=== PATIENT | male | born 1950 | race Caucasian/White ===

== ENCOUNTER 2016-12-09 19:59 | Inpatient (IN) ==
[2016-12-09 21:17] LABS: Basophils % 0.3 %; Eosinophils # 0.2 K/mcL (0.0-0.6); Eosinophils % 1.3 %; Hematocrit 37.7 % (37.5-50.1); Hemoglobin 12.2 g/dL (12.9-16.9); Immature Granulocytes % 0.9 % (0-4); Lymphocytes # 1.7 K/mcL (0.6-4.6); Lymphocytes % 13.9 %; Mean Corpuscular HGB Conc 32.4 g/dL (31.6-35.5); Mean Corpuscular Hemoglobin 27.3 pg (28.0-33.3); Mean Corpuscular Volume 84.3 fL (83.0-100.0); Mean Platelet Volume 10.1 fL (9.4-12.4); Monocytes # 0.9 K/mcL (0.0-1.3); Monocytes % 7.6 %; Platelet Count 370 K/mcL (140-400); Red Blood Count 4.47 M/mcL (4.19-5.50); Red Cell Distribution Width 13.3 % (11.5-14.5)
--- NOTE | 2016-12-09 21:22 | Emergency Department Note ---
Disposition Clinical Impression: CAP (community acquired pneumonia), Hyperglycemia Disposition: Admitted As Inpatient Condition: Fair SOB HPI - General Chief Complaint: ED Shortness of Breath/Dyspnea Stated Complaint: "i have double pneumonia" Time Seen by Provider: 12/09/16 20:15 Source: patient Limitations: no limitations Nursing Notes Reviewed: Yes Vital Signs Reviewed: Yes - History of Present Illness 66-year-old male with cough and congestion for 1 week, he was sent from his [facility] urgent care for him and say where they said that he had a new pneumonia, patient is a history of insulin dependent diabetes, hypertension, hyperlipidemia, no recent healthcare contacts in last 90 days no hospitalizations. Patient states that he has congestion in his bilateral lungs , reports productive cough. Intermittent fevers and chills. Afebrile today. Previous history of smoking has not smoked for 11 years. Hx of CABG. Pt Subjective Complaint: shortness of breath Onset (ago): day(s) (4) Severity: none Improves with: nothing Worsens with: nothing Known history of: COPD Associated symptoms: Reports: chest pain, fever, cough, sputum production. Denies: wheezing, orthopnea - Related Data Home Medications Medication Instructions Recorded Confirmed Aspirin Enteric Coated [Aspirin EC] 81 mg PO DAILY 12/09/16 12/09/16 Calcium Carbonate/Vitamin D3 2 each PO BID 12/09/16 12/09/16 [Calcium 500 + Vit D 200 Caplet] Carvedilol [Coreg] 6.25 mg PO BIDWM 12/09/16 12/09/16 Ezetimibe [Zetia] 10 mg PO DAILY 12/09/16 12/09/16 Fenofibrate [Lofibra] 160 mg PO DAILY 12/09/16 12/09/16 Furosemide [Lasix] 20 mg PO DAILY 12/09/16 12/09/16 Insulin Glargine,Hum.rec.anlog 50 unit SQ QAM 12/09/16 12/09/16 [Lantus Solostar] Insulin Glargine,Hum.rec.anlog 56 unit SQ HS 12/09/16 12/09/16 [Lantus Solostar] Insulin LISPRO [Humalog Kwikpen 3 - 15 unit SQ HS 12/09/16 12/09/16 U-100] Insulin LISPRO [Humalog Kwikpen 15 - 32 unit SQ TIDAC 12/09/16 12/09/16 U-100] Lisinopril [Zestril] 5 mg PO DAILY 12/09/16 12/09/16 Multivitamin [Multi-Day Vitamins] 1 each PO DAILY 12/09/16 12/09/16 Omeprazole [PriLOSEC] 20 mg PO BIDAC 12/09/16 12/09/16 Simvastatin [Zocor] 40 mg PO HS 12/09/16 12/09/16 SitaGLIPtin [Januvia] 100 mg PO DAILY 12/09/16 12/09/16 Spironolactone [Aldactone] 12.5 mg PO DAILY 12/09/16 12/09/16 Sucralfate [Carafate] 1 gm PO TID 12/09/16 12/09/16 Allergies Allergy/AdvReac Type Severity Reaction Status Date / Time No Known Allergies Allergy Verified 12/09/16 20:05 Review of Systems: A 10 point ROS was obtained from the historian. All other systems were reviewed and negative, except as per below, or as documented in the HPI. Constitutional: Denies: fever, chills, weight changes Eyes: Denies: vision changes, eye pain ENT: Denies: nasal congestion, sore throat CV: Denies: chest pain, palpitations, leg swelling Resp: cough, dyspnea Denies:hemoptysis GI: Denies: abdominal pain, N/V/D/C, hematochezia, melena Denies: dysuria, hematuria MSK: Denies: back pain, neck pain, extremity pain Skin: Denies: new rashes, new lesions Neuro: Denies: HASSAN, weakness, sensory changes, gait difficulty Psych: Denies: anxiety, depression All systems ED: reviewed and negative except as stated. Past Medical History - Past Medical History Attestation: Yes The following information was validated with the patient. Source: patient Medical history: Reports: diabetes, hyperlipidemia, hypertension Psychiatric history: Reports: no psych history - Social History Smoking Status: Never smoker Smokeless Tobacco Status: No Alcohol use: Reports: none Drug use: Reports: none Physical Exam Constitutional: Appears tachypneic and mildly respiratory distress sinus tachycardia. HEENT: NCAT, sclera anicteric, PERRLA bilaterally, normal external ears bilaterally, nasal septum nondeviated, average dentition, MMM Neck: normal inspection, neck is supple, trachea midline, no JVD Resp: Bibasilar rales, scattered wheezes. CV: Status post CABG, midline incision. tachycardic, no m/g/r, Pulses +2 Rad, + 2 DP/PT bilaterally, no pedal edema GI: reducible midline umbilical hernia. normal inspection, Soft, NTND, BS present and normoactive Neuro: A&O3, CN II-XII grossly intact bilaterally, no gross motor or sensory deficits bilaterally MSK: normal inspection, bilateral UE and LE with normal ROM and no deformities Psych: normal mood, normal affect Skin: No rashes, skin warm, dry, intact - General Limitations: no limitations General appearance: alert, in no apparent distress Course Course Narrative: 66-year-old male with pneumonia, on chest x-ray, we lab work blood cultures lactate, reassess. - Reevaluation(s) Reevaluation #1: Given hyperglycemia, betahydroxy butyric acid that was negative, lactate was negative, patient given 2 L of fluids, started on Levaquin IV, given diabetes hyperglycemia, admitted to medicine service. With comorbidities and pneumonia with hypoxia Time: 22:47 Reevaluation #2: Mansoor accepted added 10U of insulin, IV Abx, 2L Normal saline Time: 22:58 Vital Signs Temperature 97.5 F L 12/09/16 20:04 Pulse Rate 97 12/09/16 20:04 Respiratory Rate 20 12/09/16 20:04 Blood Pressure 166/83 12/09/16 20:04 O2 Sat by Pulse Oximetry 96 12/09/16 20:04 Temperature 97.5 F L 12/09/16 20:04 Pulse Rate 97 12/09/16 20:04 Respiratory Rate 21 12/09/16 22:43 Blood Pressure 166/83 12/09/16 20:04 O2 Sat by Pulse Oximetry 94 L 12/09/16 22:43 Oxygen Delivery Oxygen Delivery Room Air Shortness of Breath/Dyspnea - [facility] Narrative Medical decision making narrative: 66-year-old male with history of heart amount admitted to hospitalists in stable condition. - Differential Diagnosis Likely: acute exacerbation of chronic obstructive airways disease, congestive heart failure, pulmonary embolism - Medical Records Medical records reviewed: Yes I reviewed the patient's medical records. - Lab Data Lab results reviewed: Yes I reviewed the patient's lab results. Result diagrams: 12/09/16 21:05 12/09/16 21:05 Lab Results 12/09/16 12/09/16 12/09/16 Range/Units 20:51 21:05 21:05 WBC 11.9 H (4.3-11.1) K/mcL RBC 4.47 (4.19-5.50) M/mcL Hgb 12.2 L (12.9-16.9) g/dL Hct 37.7 (37.5-50.1) % MCV 84.3 (83.0-100.0) fL MCH 27.3 L (28.0-33.3) pg MCHC 32.4 (31.6-35.5) g/dL RDW 13.3 (11.5-14.5) % Plt Count 370 (140-400) K/mcL MPV 10.1 (9.4-12.4) fL Immature Gran % 0.9 (0-4) % Seg Neutrophils % 76.0 % Lymphocytes % 13.9 % Monocytes % 7.6 % Eosinophils % 1.3 % Basophils % 0.3 % Neutrophils # 9.0 H (1.6-8.9) K/mcL Lymphocytes # 1.7 (0.6-4.6) K/mcL Monocytes # 0.9 (0.0-1.3) K/mcL Eosinophils # 0.2 (0.0-0.6) K/mcL Basophils # 0.0 (0.0-0.2) K/mcL VBG pH (7.32-7.42) pH Units VBG pCO2 (41-51) mmHg VBG pO2 (25-40) mmHg VBG HCO3 (21-27) mEq/L Sodium 130 L (136-145) mEq/L Potassium 4.5 (3.5-4.5) mEq/L Chloride 97 L (98-109) mEq/L Carbon Dioxide 23 (19-29) mEq/L BUN 28 H (8-26) mg/dL Creatinine 1.36 H (0.72-1.25) mg/dL Est GFR ( Amer) > 60 (> 60) Est GFR (Non-Af Amer) 52 L (> 60) BUN/Creatinine Ratio 21 (6-26) Glucose 509 H* (70-99) mg/dL POC Glucose 459 H* (58-89) Calculated Osmolality 298 (280-300) Lactic Acid (0.5-2.2) mmol/L Calcium 9.4 (8.6-10.8) mg/dL Troponin I (0-0.03) ng/mL B-Natriuretic Peptide (0-100) pg/mL Beta-Hydroxybutyric Acd (0.02-0.27) mmol/L 12/09/16 12/09/16 12/09/16 Range/Units 21:05 21:05 21:05 WBC (4.3-11.1) K/mcL RBC (4.19-5.50) M/mcL Hgb (12.9-16.9) g/dL Hct (37.5-50.1) % MCV (83.0-100.0) fL MCH (28.0-33.3) pg MCHC (31.6-35.5) g/dL RDW (11.5-14.5) % Plt Count (140-400) K/mcL MPV (9.4-12.4) fL Immature Gran % (0-4) % Seg Neutrophils % % Lymphocytes % % Monocytes % % Eosinophils % % Basophils % % Neutrophils # (1.6-8.9) K/mcL Lymphocytes # (0.6-4.6) K/mcL Monocytes # (0.0-1.3) K/mcL Eosinophils # (0.0-0.6) K/mcL Basophils # (0.0-0.2) K/mcL VBG pH (7.32-7.42) pH Units VBG pCO2 (41-51) mmHg VBG pO2 (25-40) mmHg VBG HCO3 (21-27) mEq/L Sodium (136-145) mEq/L Potassium (3.5-4.5) mEq/L Chloride (98-109) mEq/L Carbon Dioxide (19-29) mEq/L BUN (8-26) mg/dL Creatinine (0.72-1.25) mg/dL Est GFR ( Amer) (> 60) Est GFR (Non-Af Amer) (> 60) BUN/Creatinine Ratio (6-26) Glucose (70-99) mg/dL POC Glucose (58-89) Calculated Osmolality (280-300) Lactic Acid (0.5-2.2) mmol/L Calcium (8.6-10.8) mg/dL Troponin I 0.01 (0-0.03) ng/mL B-Natriuretic Peptide 92 (0-100) pg/mL Beta-Hydroxybutyric Acd 0.15 (0.02-0.27) mmol/L 12/09/16 12/09/16 Range/Units 22:03 22:03 WBC (4.3-11.1) K/mcL RBC (4.19-5.50) M/mcL Hgb (12.9-16.9) g/dL Hct (37.5-50.1) % MCV (83.0-100.0) fL MCH (28.0-33.3) pg MCHC (31.6-35.5) g/dL RDW (11.5-14.5) % Plt Count (140-400) K/mcL MPV (9.4-12.4) fL Immature Gran % (0-4) % Seg Neutrophils % % Lymphocytes % % Monocytes % % Eosinophils % % Basophils % % Neutrophils # (1.6-8.9) K/mcL Lymphocytes # (0.6-4.6) K/mcL Monocytes # (0.0-1.3) K/mcL Eosinophils # (0.0-0.6) K/mcL Basophils # (0.0-0.2) K/mcL VBG pH 7.34 (7.32-7.42) pH Units VBG pCO2 50 (41-51) mmHg VBG pO2 42 H (25-40) mmHg VBG HCO3 27.0 (21-27) mEq/L Sodium (136-145) mEq/L Potassium (3.5-4.5) mEq/L Chloride (98-109) mEq/L Carbon Dioxide (19-29) mEq/L BUN (8-26) mg/dL Creatinine (0.72-1.25) mg/dL Est GFR ( Amer) (> 60) Est GFR (Non-Af Amer) (> 60) BUN/Creatinine Ratio (6-26) Glucose (70-99) mg/dL POC Glucose (58-89) Calculated Osmolality (280-300) Lactic Acid 1.6 (0.5-2.2) mmol/L Calcium (8.6-10.8) mg/dL Troponin I (0-0.03) ng/mL B-Natriuretic Peptide (0-100) pg/mL Beta-Hydroxybutyric Acd (0.02-0.27) mmol/L - Radiology Data Radiology results reviewed: Yes I reviewed the patient's radiology results. - EKG Data EKG attestation: Yes I reviewed and interpreted this EKG. EKG shows normal: Reports: sinus rhythm (97 per minute MI 162 QRS 105 QTC 398.) Attestation Statement - Attestation Attestation: For this encounter, I have reviewed the resident, ETL DATABASE DEVELOPER, or PA documentation, treatment plan, and medical decision making; and I have had face to face time with this patient. C6 show male presents with concerns of pneumonia. Patient had an outpatient chest x-ray performed at the request of his primary care provider. He was informed that he had pneumonia was counseled to come to the emergency department for further evaluation and care. Patient has increased work of breathing over the past 2-3 days and has a O2 saturation of 90% on the monitor on room air while at rest. Patient has a history of multiple pneumonias in the past however has not been hospitalized within the past 3 months. Patient will be admitted to the hospital for further care and evaluation of community- acquired pneumonia. He was given ceftriaxone and azithromycin emergency department for treatment.
[2016-12-09] MEDS ORDERED: 0.9 % Sodium Chloride 1,000 ML IV ONE ×2 (21:24→22:30)
[2016-12-09] MEDS ORDERED: Levofloxacin 750 MG/150 ML 750 MG/150 ML BAG IVPB ONE (21:24)
[2016-12-09 21:32] LABS: BUN/Creatinine Ratio 21 (6-26); Blood Urea Nitrogen 28 mg/dL (8-26); Calcium 9.4 mg/dL (8.6-10.8); Carbon Dioxide 23 mEq/L (19-29); Chloride 97 mEq/L (98-109); Osmolality,Calculated 298 (280-300); Potassium 4.5 mEq/L (3.5-4.5); Sodium 130 mEq/L (136-145); eGFR For African Americans > 60 (> 60); eGFR For Non-African Americans 52 (> 60)
[2016-12-09 21:37] LABS: Glucose 509 mg/dL (70-99)
[2016-12-09 22:18] LABS: VBG PH 7.34 pH Units (7.32-7.42)
[2016-12-09] MEDS ORDERED: methylPREDNISolone 125 MG/2 ML VIAL IVP ONE (22:32)
[2016-12-09] MEDS ORDERED: Ipratropium/Albuterol Neb 3 ML IH ONE (22:32)
[2016-12-09] MEDS ORDERED: Insulin Human Regular 10 UNIT in 0.9 % Sodium Chloride 10 ML IV ONE (22:56)
[2016-12-10] MEDS ORDERED: *HR* Dextrose 50 % in Water (Syg) 50 ML SYRINGE IVP PRN (01:20)
[2016-12-10] MEDS ORDERED: Dextrose Gel 15 GM PO PRN ×2 (01:20)
[2016-12-10] MEDS ORDERED: D5% in Water 1,000 ML IV PRN (01:20)
[2016-12-10] MEDS ORDERED: Acetaminophen 325 MG TABLET PO PRN (01:34)
[2016-12-10] MEDS ORDERED: *HR* HYDROcodone/Acet 5/325 mg TABLET PO PRN (01:34)
[2016-12-10] MEDS ORDERED: Naloxone 0.4 MG/ML INJ IVP PRN (01:34)
[2016-12-10] MEDS ORDERED: MOM Conc 10 ML UD.LIQ PO PRN (01:34)
[2016-12-10] MEDS ORDERED: Ondansetron ODT 4 MG TAB.RAPDIS SL PRN (01:34)
--- NOTE | 2016-12-10 01:45 | Internal Med History&Physical ---
<Maribel Gonzalez - Last Filed: 12/10/16 05:45> Date of Encounter: 12/10/16 Time of Encounter: 01:45 Assessment and Plan (1) CAP (community acquired pneumonia) Current visit: Yes Status: Acute Patient with cough/congestion/fevers and a new infiltrate on x-ray suggestion of pneumonia. Patient has no hospital stays in the last 90 days, as such will treat as community acquired pneumonia with antibiotics and supportive treatment. 1. Levofloxacin PO 750mg daily 2. Flu swab and viral panel 3. Sputum culture 4. Continuous pulse ox and supplemental O2 as needed 5. Prednisone 40mg PO daily x 5 days 6. Duoneb breathing treatments. (2) Diabetes Current visit: Yes Status: Acute Patient with uncontrolled diabetes. Glucose here 509. Carbon dioxide and beta hydroxybutyric acid were normal. Will do patient scheduled basal insulin, plus meal coverage and sliding scale. 1. Levemir 56 units HS and 50 units QAM 2. Meal coverage and sliding scale insulin 3. Monitor glucose 4. Hgb A1c in the morning Qualifiers: Diabetes mellitus type: type 2 Diabetes mellitus complication status: with unspecified complications Diabetes mellitus watermelon inspector insulin use: with watermelon inspector use Qualified Code(s): E11.8 - Type 2 diabetes mellitus with unspecified complications; Z79.4 - detention (current) use of insulin (3) Hyperglycemia Current visit: Yes Status: Acute Patient with blood glucose of 509 on admission. Improved to 344 after 10 units IV insulin. (4) DVT prophylaxis Current visit: Yes Status: Acute Heparin for DVT prophylaxis Internal Medicine - H&P: HPI Chief complaint: Shortness of breath, cough Admitted From: Home Plans for Post Hospital Care: Home History of present illness: Mr. Sanders is a 66 year old male with PMH including diabetes, HTN, HLD and a CABG x3. Patient was sent to the ED from [facility] after a CXR was suggestive of pneumonia. Patient reports that for over a week he has had cough, congestion, runny nose and worsening shortness of breath. Cough is productive of white sputum. The SOB is worse with walking and talking but he says that he can feel it at rest too. He reports associated fatigue, malaise, fever/chills, decreased appetite, nausea/vomiting, and diarrhea. He denies headache, changes in vision, chest pain or pressure, abdominal pain, or change in bowel function. In the ED, patient was afebrile, HR 90s, RR 20-21, with blood pressure 145-166/ 80-100. CXR showed a new lingular infiltrate suggestive of pneumonia. WBC of 11.9. Creatinine 1.36. Patient found to have a glucose of 509. Patient was given 2L of fluids, a dose of IV levauine, duonebs x3, IV solumedrol and 10 units IV insulin. On exam, patient is awake and alert. He was maintaining his oxygenation saturation >95% on room air. Heart was regular rate and rhythm. Lungs had diffuse bilaterally inspiratory and expiratory wheezing. Abdomen soft, nontender. No pedal edema. Past Med Surg Social Fam HX - Past Medical History Medical history: diabetes, hyperlipidemia, hypertension Psychiatric history: no psych history - Social History Smoking Status: Never smoker Smokeless Tobacco Status: No Alcohol use: none Drug use: none - Family History Father Name: ANNE Family Member Ethnicity: Non- Living Status: Age at : 86 Hx Family Cardiac Disorders: Yes Hx Family Respiratory Disorders: Yes Hx Family Cancer: No Hx Family GI Disorders: No Hx Family Genitourinary Disorders: No Hx Family Endocrine Disorder: Yes Hx Family Musculoskeletal Disorders: No Hx Family Neuromuscular Disorders: No Hx Family Neurologic Disorders: No Hx Family HEENT Disorders: No Hx Family Autoimmune Disorders: No Hx Family Reproductive Disorders: No Hx Family Psychosocial Disorders: No Hx Family Medical Disorders: No Internal Medicine - H&P: Meds Aspirin Enteric Coated [Aspirin EC] 81 mg PO DAILY 12/09/16 [History] Calcium Carbonate/Vitamin D3 [Calcium 500 + Vit D 200 Caplet] 2 each PO BID [History] Carvedilol [Coreg] 6.25 mg PO BIDWM 12/09/16 [History] Ezetimibe [Zetia] 10 mg PO DAILY 12/09/16 [History] Fenofibrate [Lofibra] 160 mg PO DAILY 12/09/16 [History] Furosemide [Lasix] 20 mg PO DAILY 12/09/16 [History] Insulin Glargine,Hum.rec.anlog [Lantus Solostar] 50 unit SQ QAM 12/09/16 [ History] Insulin Glargine,Hum.rec.anlog [Lantus Solostar] 56 unit SQ HS 12/09/16 [History ] Insulin LISPRO [Humalog Kwikpen U-100] 3 - 15 unit SQ HS 12/09/16 [History] Insulin LISPRO [Humalog Kwikpen U-100] 15 - 32 unit SQ TIDAC 12/09/16 [History] Lisinopril [Zestril] 5 mg PO DAILY 12/09/16 [History] Multivitamin [Multi-Day Vitamins] 1 each PO DAILY 12/09/16 [History] Omeprazole [PriLOSEC] 20 mg PO BIDAC 12/09/16 [History] Simvastatin [Zocor] 40 mg PO HS 12/09/16 [History] SitaGLIPtin [Januvia] 100 mg PO DAILY 12/09/16 [History] Spironolactone [Aldactone] 12.5 mg PO DAILY 12/09/16 [History] Sucralfate [Carafate] 1 gm PO TID 12/09/16 [History] Allergies No Known Allergies Allergy (Verified 12/09/16 20:05) All Systems PM: A 10-system review of systems was performed and is negative for pertinent findings except as documented above in the HPI. - Constitutional Constitutional: chills, fever(s), lethargy, malaise - EENT Eyes: no blurry vision, no change in vision - Cardiovascular Cardiovascular ROS IM: dyspnea, dyspnea on exertion, no chest pain, no edema, no irregular heart rhythm, no palpitations - Respiratory Respiratory: cough, dyspnea, dyspnea on exertion, wheezing, chest congestion - Gastrointestinal Gastrointestinal: diarrhea, nausea, vomiting, no abdominal pain, no constipation , no hematochezia, no melena - Genitourinary Genitourinary ROS male: no dysuria - Neurological Neurological ROS: no confusion, no headache(s), no loss of vision - Constitutional Vitals: Temp Pulse Resp BP Pulse Ox 98.0 F 80 22 138/76 95 12/10/16 00:06 12/10/16 00:20 12/10/16 00:06 12/10/16 00:06 12/10/16 00:06 General appearance: Present: A&O X 3, pleasant, no acute distress, obese, answers questions appropriately - Head Head exam: Present: atraumatic, normal inspection, normocephalic - Eye Eye exam: Present: EOMI, normal appearance - ENT ENT exam: Present: mucous membranes moist - Respiratory Respiratory exam: Present: wheezes, tachypnea. Absent: respiratory distress - Cardiovascular Cardiovascular exam: Present: RRR - GI/Abdominal GI/Abdominal exam: Present: soft. Absent: guarding, rebound, rigid, tenderness - Extremities Exam Extremities exam: Present: normal inspection. Absent: pedal edema - Neurological Exam Neurological exam: Present: alert, CN II-XII intact, oriented X3 Internal Med - H&P Results - Labs CBC & Chem 7: 12/09/16 21:05 12/09/16 21:05 <Otto Rajput - Last Filed: 12/10/16 06:43> Date of Encounter: 12/10/16 Internal Medicine - H&P: HPI History of present illness: Mr. Sanders is a 66 year old male All Systems PM: A 10-system review of systems was performed and is negative for pertinent findings except as documented above in the HPI. - Constitutional Vitals: Temp Pulse Resp BP Pulse Ox 98.2 F 83 22 138/81 93 L 12/10/16 04:07 12/10/16 04:07 12/10/16 04:07 12/10/16 04:07 12/10/16 04:07 Internal Med - H&P Results - Labs CBC & Chem 7: 12/10/16 06:06 12/09/16 21:05 Labs: Short CBC 12/10/16 Range/Units 06:06 WBC 7.6 (4.3-11.1) K/mcL Hgb 12.0 L (12.9-16.9) g/dL Hct 37.0 L (37.5-50.1) % Plt Count 330 (140-400) K/mcL Neutrophils # 6.7 (1.6-8.9) K/mcL - Attending Attestation I examined this patient and my medical decision-making was reviewed with the Resident Physician, Dr. Gonzalez. I agree with the documented findings, disposition and treatment plan as described except to the extent set forth below. Patient presented to the hospital with generalized weakness shortness of breath and somnolence or lethargy. His symptoms lasted for about the week. He reports cough productive of white sputumassociated chest pain. He has had no nausea vomiting diarrhea and decreased appetite. On exam she is in no distress lung exam reveals expiratory wheezes. There is a reducible periumbilical hernia present. Extremities with 2+ lower extremity pitting edema. Plan: we will treat patient with Levaquin, inhaled bronchodilators and prednisone. Follow-up blood cultures. Check influenza nasal swab.
[2016-12-10] MEDS: Ipratropium/Albuterol Neb 3 ML IH SCH ×6 (03:31→23:36)
[2016-12-10] MEDS ORDERED: Insulin LISPRO 300 UNITS/3 ML VIAL SQ ONE (04:09)
[2016-12-10] MEDS ORDERED: Insulin LISPRO 300 UNITS/3 ML VIAL SQ STA (04:29)
[2016-12-10 06:23] LABS: Basophils % 0.3 %; Immature Granulocytes % 1.1 % (0-4); Lymphocytes # 0.7 K/mcL (0.6-4.6); Lymphocytes % 9.3 %; Mean Corpuscular HGB Conc 32.4 g/dL (31.6-35.5); Mean Corpuscular Volume 83.1 fL (83.0-100.0); Mean Platelet Volume 10.3 fL (9.4-12.4); Monocytes # 0.1 K/mcL (0.0-1.3); Monocytes % 0.7 %; Neutrophils # 6.7 K/mcL (1.6-8.9); Platelet Count 330 K/mcL (140-400); Red Blood Count 4.45 M/mcL (4.19-5.50); Red Cell Distribution Width 13.2 % (11.5-14.5); Segmented Neutrophils % 88.6 %
[2016-12-10 06:34] LABS: Hemoglobin A1C 12.6 %
[2016-12-10 06:35] LABS: Magnesium 1.4 mg/dL (1.6-2.6)
[2016-12-10 06:36] LABS: BUN/Creatinine Ratio 22 (6-26); Blood Urea Nitrogen 26 mg/dL (8-26); Carbon Dioxide 23 mEq/L (19-29); Chloride 100 mEq/L (98-109); Osmolality,Calculated 303 (280-300); Potassium 4.7 mEq/L (3.5-4.5); Sodium 133 mEq/L (136-145); eGFR For African Americans > 60 (> 60); eGFR For Non-African Americans > 60 (> 60)
[2016-12-10 06:41] LABS: Glucose 507 mg/dL (70-99)
[2016-12-10] MEDS: Furosemide 20 MG TABLET PO SCH (08:39)
[2016-12-10] MEDS: Spironolactone 25 MG TABLET PO SCH (08:39)
[2016-12-10] MEDS: Sucralfate 1 GM TABLET PO SCH ×3 (08:40→22:09)
[2016-12-10] MEDS: levoFLOXacin 500 MG TABLET PO SCH (08:40)
[2016-12-10] MEDS: Fenofibrate 54 MG TABLET PO SCH (08:40)
[2016-12-10] MEDS: Aspirin Enteric Coated 81 MG Tablet PO SCH (08:40)
[2016-12-10] MEDS: Insulin LISPRO 300 UNITS/3 ML VIAL SQ SCH ×6 (08:41→17:01)
[2016-12-10] MEDS: Insulin DETEMIR 100 UNIT/ML X5UNITS SQ SCH ×2 (08:41→22:08)
[2016-12-10] MEDS: *HR* Heparin 5,000 UNIT/ML VIAL SQ SCH ×2 (08:41→18:56)
[2016-12-10] MEDS: 0.9 % Sodium Chloride 1,000 ML IVC SCH ×2 (08:45→18:56)
[2016-12-10] MEDS: (Ezetimibe [Zetia] 10 MG) PO SCH (08:58)
[2016-12-10] MEDS ORDERED: predniSONE 20 MG TABLET PO SCH (09:00)
--- NOTE | 2016-12-10 13:16 | Internal Med Progress Note ---
Date of Encounter: 12/10/16 Time of Encounter: 10:00 - Assessment and plan (1) CAP (community acquired pneumonia) Current Visit: Yes Status: Acute Assessment and plan: Will continue Levaquin treatment. Closely monitor patient. Patient still has desaturation, continue oxygen therapy (2) DVT prophylaxis Current Visit: Yes Status: Acute Assessment and plan: Heparin subcutaneously (3) Diabetes Current Visit: Yes Status: Acute Assessment and plan: Continue basal, prandial and sliding scale insulin. Glucose level is still high , highly suspect caused by steroid. Since the patient has no wheezing, no history of COPD, with DC steroid. Qualifiers: Diabetes mellitus type: type 2 Diabetes mellitus complication status: with unspecified complications Diabetes mellitus terminal operations manager insulin use: with terminal operations manager use Qualified Code(s): E11.8 - Type 2 diabetes mellitus with unspecified complications; Z79.4 - FPC (current) use of insulin (4) Hyperglycemia Current Visit: Yes Status: Acute Assessment and plan: Will continue insulin treatment and DC steroid. We will give patient IV fluid to avoid dehydration. (5) Hypertension Current Visit: Yes Status: Acute Assessment and plan: Stable, continue home medications Qualifiers: Hypertension type: essential hypertension Qualified Code(s): I10 - Essential (primary) hypertension - Time Spent With Patient 25 - 35 minutes - Subjective Interval history: Patient is a 66-year-old male admitted for shortness of breath and cough. He was diagnosed as pneumonia. Past medical history is significant for diabetes, hypertension, hyperlipidemia. Patient was seen and examined. He is awake alert, oriented 3. Complaint mild cough without sputum. Feels the shortness of breath is much better. no chest pain. In no acute respiratory distress. Vital signs stable, no fever. Will continue antibiotic treatment and closely monitor patient. Patient has uncontrolled diabetes, will adjust the insulin dose. - Constitutional Vitals: Temp Pulse Resp BP Pulse Ox 97.4 F L 70 18 119/74 95 12/10/16 10:40 12/10/16 12:10 12/10/16 11:02 12/10/16 10:40 12/10/16 11:55 General appearance: Present: A&O X 3, pleasant, no acute distress, obese, answers questions appropriately - Head Head exam: Present: atraumatic, normocephalic - Eye Eye exam: Present: PERRL, conjuntiva pink, sclera anicteric Pupils: Present: PERRL - Neck Neck exam general surgery: Present: supple, trachea midline. Absent: lymphadenopathy - Respiratory Respiratory exam: Present: CTAB, rhonchi (Scattered rhonchi bilaterally). Absent: accessory muscle use, rales, wheezes - Cardiovascular Cardiovascular exam: Present: RRR, +S1, +S2. Absent: diastolic murmur, gallop, rubs, systolic murmur - GI/Abdominal GI/Abdominal exam: Present: normal bowel sounds, soft, no peritoneal signs. Absent: distended, tenderness - Extremities Exam Extremities exam: Present: warm, radial pulses palpable and symetrical. Absent : calf tenderness, cyanotic, pedal edema - Neurological Exam Neurological exam: Present: CN II-XII intact, oriented X3, no focal deficits. Absent: pronater drift, facial droop, speech deficit - Skin Skin exam: Present: dry, intact Internal Medicine: Result - Labs CBC & Chem 7: 12/10/16 06:06 12/10/16 06:06 Labs: Short CBC 12/10/16 Range/Units 06:06 WBC 7.6 (4.3-11.1) K/mcL Hgb 12.0 L (12.9-16.9) g/dL Hct 37.0 L (37.5-50.1) % Plt Count 330 (140-400) K/mcL Neutrophils # 6.7 (1.6-8.9) K/mcL BMP 12/10/16 06:06 Sodium 133 L Potassium 4.7 H Chloride 100 Carbon Dioxide 23 BUN 26 Creatinine 1.19 Glucose 507 H* Calcium 9.0 Consult Discharge Plan - Plan Referrals: Shay britt MD [Primary Care Provider] -
[2016-12-10 14:39] LABS: Adenovirus Not Detected (Not Detect); Bordetella Pertussis Not Detected (Not Detect); Chlamydophila pneumoniae Not Detected (Not Detect); Coronavirus 229E ***DETECTED*** (Not Detect); Coronavirus HKU1 Not Detected (Not Detect); Coronavirus NL63 Not Detected (Not Detect); Coronavirus OC43 Not Detected (Not Detect); Human Metapneumovirus Not Detected (Not Detect); Human Rhinovirus/Enterovirus Not Detected (Not Detect); Influenza A Subtype 2009 H1 Not Detected (Not Detect); Influenza A Untypeable Not Detected (Not Detect); Influenza B Not Detected (Not Detect); Mycoplasma pneumoniae Not Detected (Not Detect); Parainfluenza Virus 1 Not Detected (Not Detect); Parainfluenza Virus 2 Not Detected (Not Detect); Parainfluenza Virus 3 Not Detected (Not Detect); Parainfluenza Virus 4 Not Detected (Not Detect); Respiratory Syncytial Virus Not Detected (Not Detect)
[2016-12-11] MEDS: Ipratropium/Albuterol Neb 3 ML IH SCH ×7 (03:38→23:57)
[2016-12-11 05:04] LABS: Hemoglobin A1C 12.4 %
[2016-12-11] MEDS: 0.9 % Sodium Chloride 1,000 ML IVC SCH (05:04)
[2016-12-11] MEDS: *HR* Heparin 5,000 UNIT/ML VIAL SQ SCH ×2 (05:06→17:38)
[2016-12-11 05:10] LABS: Basophils % 0.2 %; Hematocrit 35.9 % (37.5-50.1); Hemoglobin 11.5 g/dL (12.9-16.9); Immature Granulocytes % 0.9 % (0-4); Lymphocytes # 1.8 K/mcL (0.6-4.6); Lymphocytes % 14.2 %; Mean Corpuscular Hemoglobin 27.3 pg (28.0-33.3); Mean Corpuscular Volume 85.1 fL (83.0-100.0); Mean Platelet Volume 10.4 fL (9.4-12.4); Monocytes # 0.6 K/mcL (0.0-1.3); Monocytes % 4.3 %; Neutrophils # 10.2 K/mcL (1.6-8.9); Platelet Count 365 K/mcL (140-400); Red Blood Count 4.22 M/mcL (4.19-5.50); Red Cell Distribution Width 13.2 % (11.5-14.5); Segmented Neutrophils % 80.4 %
[2016-12-11 05:13] LABS: BUN/Creatinine Ratio 25 (6-26); Blood Urea Nitrogen 27 mg/dL (8-26); Carbon Dioxide 23 mEq/L (19-29); Chloride 104 mEq/L (98-109); Glucose 328 mg/dL (70-99); Osmolality,Calculated 298 (280-300); Sodium 135 mEq/L (136-145); eGFR For African Americans > 60 (> 60); eGFR For Non-African Americans > 60 (> 60)
[2016-12-11] MEDS: Spironolactone 25 MG TABLET PO SCH (08:46)
[2016-12-11] MEDS: Sucralfate 1 GM TABLET PO SCH ×3 (08:46→20:42)
[2016-12-11] MEDS: Aspirin Enteric Coated 81 MG Tablet PO SCH (08:46)
[2016-12-11] MEDS: levoFLOXacin 500 MG TABLET PO SCH (08:46)
[2016-12-11] MEDS: Furosemide 20 MG TABLET PO SCH (08:46)
[2016-12-11] MEDS: Insulin LISPRO 300 UNITS/3 ML VIAL SQ SCH ×6 (08:47→19:54)
[2016-12-11] MEDS: Fenofibrate 54 MG TABLET PO SCH (08:47)
[2016-12-11] MEDS: (Ezetimibe [Zetia] 10 MG) PO SCH (08:48)
[2016-12-11] MEDS: Insulin DETEMIR 100 UNIT/ML X5UNITS SQ SCH ×2 (12:08→21:44)
--- NOTE | 2016-12-11 14:08 | Internal Med Progress Note ---
Date of Encounter: 12/11/16 Time of Encounter: 09:00 - Assessment and plan (1) CAP (community acquired pneumonia) Current Visit: Yes Status: Acute Assessment and plan: Will continue Levaquin treatment. Closely monitor patient. Oxygen saturation level improved. (2) DVT prophylaxis Current Visit: Yes Status: Acute Assessment and plan: Heparin subcutaneously (3) Diabetes Current Visit: Yes Status: Acute Assessment and plan: Continue basal, prandial and sliding scale insulin. Glucose level is still high , highly suspect caused by steroid. Since the patient has no wheezing, no history of COPD, with DC steroid. We will also increase the insulin dose. Closely monitor patient. 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 Adjust insulin dose. Improved with the glucose level (5) Hypertension Current Visit: Yes Status: Acute Assessment and plan: Stable, continue home medications Qualifiers: Hypertension type: essential hypertension Qualified Code(s): I10 - Essential (primary) hypertension - Time Spent With Patient 25 - 35 minutes - Subjective Interval history: Patient is a 66-year-old male admitted for shortness of breath and cough. He was diagnosed as pneumonia. Past medical history is significant for diabetes, hypertension, hyperlipidemia. Patient was seen and examined. He is awake alert, oriented 3. Improved with the shortness of breath and a cough. no chest pain. In no acute respiratory distress. Vital signs stable, no fever. Will continue antibiotic treatment and closely monitor patient. Patient has uncontrolled diabetes, will adjust the insulin dose. - Constitutional Vitals: Temp Pulse Resp BP Pulse Ox 97.6 F 64 18 133/74 95 12/11/16 11:55 12/11/16 12:15 12/11/16 11:55 12/11/16 11:55 12/11/16 11:55 General appearance: Present: A&O X 3, pleasant, no acute distress, obese, answers questions appropriately - Head Head exam: Present: atraumatic, normocephalic - Eye Eye exam: Present: PERRL, conjuntiva pink, sclera anicteric Pupils: Present: PERRL - Neck Neck exam general surgery: Present: supple, trachea midline. Absent: lymphadenopathy - Respiratory Respiratory exam: Present: CTAB, rhonchi (Scattered rhonchus bilaterally). Absent: accessory muscle use, rales, wheezes - Cardiovascular Cardiovascular exam: Present: RRR, +S1, +S2. Absent: diastolic murmur, gallop, rubs, systolic murmur - GI/Abdominal GI/Abdominal exam: Present: normal bowel sounds, soft, no peritoneal signs. Absent: distended, tenderness - Extremities Exam Extremities exam: Present: warm, radial pulses palpable and symetrical. Absent : calf tenderness, cyanotic, pedal edema - Neurological Exam Neurological exam: Present: CN II-XII intact, oriented X3, no focal deficits. Absent: pronater drift, facial droop, speech deficit - Skin Skin exam: Present: dry, intact Internal Medicine: Result - Labs CBC & Chem 7: 12/11/16 04:13 12/11/16 04:13 Labs: Short CBC 12/11/16 Range/Units 04:13 WBC 12.7 H D (4.3-11.1) K/mcL Hgb 11.5 L (12.9-16.9) g/dL Hct 35.9 L (37.5-50.1) % Plt Count 365 (140-400) K/mcL Neutrophils # 10.2 H (1.6-8.9) K/mcL BMP 12/11/16 04:13 Sodium 135 L Potassium 4.0 Chloride 104 Carbon Dioxide 23 BUN 27 H Creatinine 1.10 Glucose 328 H Calcium 8.0 L Consult Discharge Plan - Plan Referrals: lorenza,Shay Costa MD [Primary Care Provider] -
[2016-12-11] MEDS ORDERED: Insulin LISPRO 300 UNITS/3 ML VIAL SQ SCH (21:00)
[2016-12-12] MEDS: Ipratropium/Albuterol Neb 3 ML IH SCH ×3 (04:00→11:13)
[2016-12-12 05:13] LABS: Basophils % 0.4 %; Eosinophils # 0.1 K/mcL (0.0-0.6); Eosinophils % 0.7 %; Hematocrit 38.3 % (37.5-50.1); Hemoglobin 12.3 g/dL (12.9-16.9); Immature Granulocytes % 1.4 % (0-4); Lymphocytes # 2.5 K/mcL (0.6-4.6); Mean Corpuscular HGB Conc 32.1 g/dL (31.6-35.5); Mean Corpuscular Hemoglobin 27.2 pg (28.0-33.3); Mean Corpuscular Volume 84.5 fL (83.0-100.0); Mean Platelet Volume 10.1 fL (9.4-12.4); Monocytes # 0.7 K/mcL (0.0-1.3); Monocytes % 6.7 %; Platelet Count 341 K/mcL (140-400); Red Blood Count 4.53 M/mcL (4.19-5.50); Red Cell Distribution Width 13.5 % (11.5-14.5); Segmented Neutrophils % 66.8 %
[2016-12-12 05:31] LABS: BUN/Creatinine Ratio 28 (6-26); Blood Urea Nitrogen 26 mg/dL (8-26); Calcium 8.5 mg/dL (8.6-10.8); Carbon Dioxide 24 mEq/L (19-29); Chloride 108 mEq/L (98-109); Glucose 73 mg/dL (70-99); Osmolality,Calculated 291 (280-300); Potassium 4.1 mEq/L (3.5-4.5); Sodium 139 mEq/L (136-145); eGFR For African Americans > 60 (> 60); eGFR For Non-African Americans > 60 (> 60)
[2016-12-12] MEDS: *HR* Heparin 5,000 UNIT/ML VIAL SQ SCH (05:51)
[2016-12-12] MEDS ORDERED: Insulin DETEMIR 100 UNIT/ML X5UNITS SQ SCH (07:30)
[2016-12-12] MEDS: Insulin LISPRO 300 UNITS/3 ML VIAL SQ SCH (08:11)
[2016-12-12] MEDS: Fenofibrate 54 MG TABLET PO SCH (08:22)
[2016-12-12] MEDS: Aspirin Enteric Coated 81 MG Tablet PO SCH (08:22)
[2016-12-12] MEDS: levoFLOXacin 500 MG TABLET PO SCH (08:22)
[2016-12-12] MEDS: Sucralfate 1 GM TABLET PO SCH (08:23)
[2016-12-12] MEDS: Spironolactone 25 MG TABLET PO SCH (08:23)
[2016-12-12] MEDS: Furosemide 20 MG TABLET PO SCH (08:23)
[2016-12-12] MEDS: (Ezetimibe [Zetia] 10 MG) PO SCH (08:24)
--- NOTE | 2016-12-12 10:46 | Discharge Summary ---
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 Qualified Code(s): E11.8 - Type 2 diabetes mellitus with unspecified complications; Z79.4 - terminal superintendent (current) use of insulin (4) Hyperglycemia Priority: Primary Status: Acute (5) Hypertension Priority: Secondary Status: Acute Qualifiers: Hypertension type: essential hypertension Qualified Code(s): I10 - Essential (primary) hypertension - Discharge Medications Prescriptions: GuaiFENesin/Dextromethorphan [Robitussin/Dm] 10 ml PO Q6HR 7 Days Home Medications: Aspirin Enteric Coated [Aspirin EC] 81 mg PO DAILY 12/09/16 [History] Calcium Carbonate/Vitamin D3 [Calcium 500-Vit D3 200 Caplet] 2 each PO BID 12/09 [History] Carvedilol [Coreg] 6.25 mg PO BIDWM 12/09/16 [History] Ezetimibe [Zetia] 10 mg PO DAILY 12/09/16 [History] Fenofibrate [Lofibra] 160 mg PO DAILY 12/09/16 [History] Furosemide [Lasix] 20 mg PO DAILY 12/09/16 [History] Insulin Glargine,Hum.rec.anlog [Lantus Solostar] 50 unit SQ QAM 12/09/16 [ History] Insulin Glargine,Hum.rec.anlog [Lantus Solostar] 56 unit SQ HS 12/09/16 [History ] Insulin LISPRO [Humalog Kwikpen U-100] 3 - 15 unit SQ HS 12/09/16 [History] Insulin LISPRO [Humalog Kwikpen U-100] 15 - 32 unit SQ TIDAC 12/09/16 [History] Lisinopril [Zestril] 5 mg PO DAILY 12/09/16 [History] Multivitamin [Multi-Day Vitamins] 1 each PO DAILY 12/09/16 [History] Omeprazole [PriLOSEC] 20 mg PO BIDAC 12/09/16 [History] Simvastatin [Zocor] 40 mg PO HS 12/09/16 [History] SitaGLIPtin [Januvia] 100 mg PO DAILY 12/09/16 [History] Spironolactone [Aldactone] 12.5 mg PO DAILY 12/09/16 [History] Sucralfate [Carafate] 1 gm PO TID 12/09/16 [History] GuaiFENesin/Dextromethorphan [Robitussin/Dm] 10 ml PO Q6HR 7 Days 12/12/16 [Rx] Levofloxacin [Levaquin] 750 mg PO DAILY #7 tablet 12/12/16 [Rx] Allergies/Adverse Reactions: Allergies No Known Allergies Allergy (Verified 12/09/16 20:05) Date of admission: 12/10/16 03:54 Primary care physician: Shay Goetz MD Discharging clinician: Shea Watters Anticipated date of discharge: 12/12/16 - Patient Status Disposition: Home, Self-Care Condition: Good Functional capacity at discharge: independent ambulation Overall status at discharge: patient is progressing back to baseline - Discharge Instructions Follow Up With: Shay Goetz MD [Primary Care Provider] - - Diet and Activity Activity: increase activity as tolerated Diet: diabetic diet Interval History: Mr. Sanders is a 66 year old male with PMH including diabetes, HTN, HLD and a CABG x3. Patient was sent to the ED from [facility] after a CXR was suggestive of pneumonia. Patient reports that for over a week he has had cough, congestion, runny nose and worsening shortness of breath. Cough is productive of white sputum. The SOB is worse with walking and talking but he says that he can feel it at rest too. He reports associated fatigue, malaise, fever/chills, decreased appetite, nausea/vomiting, and diarrhea. He denies headache, changes in vision, chest pain or pressure, abdominal pain, or change in bowel function. In the ED, patient was afebrile, HR 90s, RR 20-21, with blood pressure 145-166/ 80-100. CXR showed a new lingular infiltrate suggestive of pneumonia. WBC of 11.9. Creatinine 1.36. Patient found to have a glucose of 509. Patient was given 2L of fluids, a dose of IV levauine, duonebs x3, IV solumedrol and 10 units IV insulin. Hospital course: Mr. Sanders is a 66 year old male admitted for community acquired pneumonia. He was placed on Levaquin treatment and supportive treatment. He also has uncontrolled diabetes, which was treated with insulin. After treatment his condition has improved. Patient has no fever, WBC get down, in no acute respiratory distress. Patient was discharged home with by mouth Levaquin. His blood sugar level is also well controlled after treatment. I saw and examined the patient today. He is a awake alert, oriented 3. In no acute respiratory Distress. Mild cough, nonproductive. No fever. Vital signs stable, oxygen saturation 94% in room air. Lungs are clear, very few rhonchi on the right lung base. No wheezing. Will discharge patient home today with by mouth antibiotic. Follow-up with PCP as outpatient. will give Patient 7 day work excuse. - Time Spent with Patient Total time spent providing and/or coordinating discharge services: 40 min Greater than 30 minutes - Constitutional Vitals: Temp Pulse Resp BP Pulse Ox 98 F 71 18 159/74 92 L 12/12/16 08:18 12/12/16 08:18 12/12/16 08:18 12/12/16 08:18 12/12/16 08:31 General appearance: Present: A&O X 3, pleasant, no acute distress, obese, answers questions appropriately - Head Head exam: Present: atraumatic, normocephalic - Eye Eye exam: Present: PERRL, conjuntiva pink, sclera anicteric Pupils: Present: PERRL - Neck Neck exam general surgery: Present: supple, trachea midline. Absent: lymphadenopathy - Respiratory Respiratory exam: Present: CTAB, rhonchi (Few rhonchi on the right lung base). Absent: accessory muscle use, rales, wheezes - Cardiovascular Cardiovascular exam: Present: RRR, +S1, +S2. Absent: diastolic murmur, gallop, rubs, systolic murmur - GI/Abdominal GI/Abdominal exam: Present: normal bowel sounds, soft, no peritoneal signs. Absent: distended, tenderness - Extremities Exam Extremities exam: Present: warm, radial pulses palpable and symetrical. Absent : calf tenderness, cyanotic, pedal edema - Neurological Exam Neurological exam: Present: CN II-XII intact, oriented X3, no focal deficits. Absent: pronater drift, facial droop, speech deficit - Skin Skin exam: Present: dry, intact
[2016-12-12 11:13] VITALS: BP 172/76
--- NOTE | 2016-12-12 15:37 | Electrocardiograph Report ---
[address] [address] Test Date: 2016-12-09 Pat Name: Faraz Sanders Department: 102 Room: 2A11 Gender: M [employer] Rol[employer]ter: : 1950 Requested By: Ridge Da Silva Order Number: [id number] Reading MD: Micah Bowman MD Measurements Intervals [place] Rate: 97 P: -45 VA: 162 QRS: 43 QRSD: 105 T: 31 QT: 344 QTc: 398 Interpretive Statements POSSIBLE ECTOPIC ATRIAL RHYTHM INFERIOR MYOCARDIAL INFARCTION, PROBABLY OLD Electronically Signed On 12-12-2016 15:35:12 EST by Micah Bowman MD
== END 2016-12-12 11:45 | disposition home or self-care (01) | DRG 190 ==
LOC: 2NNU 19:59 → EMEROO 19:59 → 2NNU 23:47 → 2ANU 12-11 15:44
PROVIDERS: ADMIT Internal Medicine; ATTEND Internal Medicine

== ENCOUNTER 2020-11-19 16:12 | Inpatient (IN) ==
[2020-11-19 18:02] LABS: Basophils % 0.3 %; Eosinophils # 0.1 K/mcL (0.0-0.6); Eosinophils % 1.2 %; Hematocrit 39.5 % (37.5-50.1); Hemoglobin 12.2 g/dL (12.9-16.9); Immature Granulocytes % 0.7 % (0-4); Lymphocytes # 2.2 K/mcL (0.6-4.6); Lymphocytes % 24.5 %; Mean Corpuscular HGB Conc 30.9 g/dL (31.6-35.5); Mean Corpuscular Hemoglobin 27.1 pg (28.0-33.3); Mean Corpuscular Volume 87.6 fL (83.0-100.0); Mean Platelet Volume 10.9 fL (9.4-12.4); Monocytes # 0.5 K/mcL (0.0-1.3); Monocytes % 5.9 %; Neutrophils # 6.1 K/mcL (1.6-8.9); Platelet Count 243 K/mcL (140-400); Red Blood Count 4.51 M/mcL (4.19-5.50); Red Cell Distribution Width 14.7 % (11.5-14.5); Segmented Neutrophils % 67.4 %; White Blood Count 9.1 K/mcL (4.3-11.1)
[2020-11-19 18:26] LABS: Alanine Aminotransferase 8 Units/L (7-52); Albumin 3.5 g/dL (3.5-5.7); Alkaline Phosphatase 81 Units/L (34-104); Aspartate Amino Transferase 14 Units/L (13-39); BUN/Creatinine Ratio 23 (6-26); Bilirubin,Total 0.5 mg/dL (0.3-1.0); Blood Urea Nitrogen 23 mg/dL (8-23); Calcium 9.6 mg/dL (8.6-10.3); Carbon Dioxide 25 mEq/L (23-29); Chloride 103 mEq/L (98-107); Globulin 3.4 g/dL (2.4-3.5); Glucose 256 mg/dL (70-105); Osmolality,Calculated 294 (280-300); Potassium 4.2 mEq/L (3.5-5.1); Sodium 136 mEq/L (136-145); Total Protein 6.9 g/dL (6.4-8.9); Troponin I 0.06 ng/mL (< 0.04); eGFR For African Americans > 60 (> 60); eGFR For Non-African Americans > 60 (> 60)
[2020-11-19] MEDS ORDERED: Furosemide 20 MG/2 ML VIAL IVP ONE ×2 (18:32→20:26)
[2020-11-19] MEDS ORDERED: Naloxone 0.4 MG/ML INJ IVP PRN (20:17)
[2020-11-19] MEDS ORDERED: Acetaminophen 325 MG TABLET PO PRN (20:17)
[2020-11-19] MEDS ORDERED: D5% in Water 1,000 ML IVC PRN (20:19)
[2020-11-19] MEDS ORDERED: Dextrose Gel 15 GM/37.5 ML TUBE PO PRN ×2 (20:19)
[2020-11-19] MEDS ORDERED: *HR* Dextrose 50 % in Water (Vial) 50 ML VIAL IVP PRN (20:19)
[2020-11-19] MEDS ORDERED: Ipratropium/Albuterol Neb 3 ML IH PRN (20:24)
[2020-11-19] MEDS ORDERED: Ondansetron ODT 4 MG TAB.RAPDIS SL PRN (21:24)
[2020-11-19] MEDS ORDERED: Perflutren Lipid Microsphere 1.3 ML in 0.9 % Sodium Chloride 8.7 ML IVP PRN (21:26)
[2020-11-19] MEDS ORDERED: *HR* Metoprolol 5 MG/5 ML VIAL IVP ONE (23:17)
[2020-11-19] MEDS: Insulin LISPRO 300 UNITS/3 ML VIAL SUBQ SCH (23:25)
[2020-11-19] MEDS: Insulin DETEMIR 100 UNIT/ML X5UNITS SUBQ SCH (23:26)
[2020-11-19] MEDS: Furosemide 20 MG/2 ML VIAL IVP SCH (23:27)
[2020-11-20 05:21] LABS: Hematocrit 38.4 % (37.5-50.1); Hemoglobin 12.2 g/dL (12.9-16.9); Mean Corpuscular HGB Conc 31.8 g/dL (31.6-35.5); Mean Corpuscular Hemoglobin 26.9 pg (28.0-33.3); Mean Corpuscular Volume 84.8 fL (83.0-100.0); Mean Platelet Volume 10.2 fL (9.4-12.4); Platelet Count 252 K/mcL (140-400); Red Blood Count 4.53 M/mcL (4.19-5.50); Red Cell Distribution Width 14.7 % (11.5-14.5); White Blood Count 9.7 K/mcL (4.3-11.1)
[2020-11-20 05:42] LABS: BUN/Creatinine Ratio 18 (6-26); Blood Urea Nitrogen 21 mg/dL (8-23); Calcium 9.3 mg/dL (8.6-10.3); Carbon Dioxide 30 mEq/L (23-29); Chloride 100 mEq/L (98-107); Glucose 261 mg/dL (70-105); Magnesium 1.3 mg/dL (1.6-2.6); Osmolality,Calculated 296 (280-300); Phosphorous 2.9 mg/dL (2.7-4.5); Potassium 3.8 mEq/L (3.5-5.1); Sodium 137 mEq/L (136-145); eGFR For African Americans > 60 (> 60); eGFR For Non-African Americans > 60 (> 60)
[2020-11-20] MEDS: *HR* Heparin 5,000 UNIT/ML VIAL SQ SCH ×2 (06:55→16:25)
[2020-11-20] MEDS ORDERED: Albuterol 2.5 MG/3 ML NEBULIZER IH PRN (07:00)
[2020-11-20] MEDS: Furosemide 20 MG/2 ML VIAL IVP SCH ×2 (08:30→20:35)
[2020-11-20] MEDS: lisinopriL 5 MG TABLET PO SCH (08:30)
[2020-11-20] MEDS: Sucralfate 1 GM TABLET PO SCH ×3 (08:30→20:32)
[2020-11-20] MEDS: carvediloL 6.25 MG TABLET PO SCH ×2 (08:30→16:25)
[2020-11-20] MEDS: Aspirin Enteric Coated 81 MG Tablet PO SCH (08:30)
[2020-11-20] MEDS: Spironolactone 25 MG TABLET PO SCH (08:30)
[2020-11-20] MEDS: Insulin LISPRO 300 UNITS/3 ML VIAL SUBQ SCH ×4 (08:31→20:33)
[2020-11-20] MEDS: *HR* Acetylcysteine 20% 600 MG/3 ML ORAL SYRINGE PO SCH (09:27)
[2020-11-20] MEDS: Budesonide/Formoterol 160/4.5 1 PUFF INH IH SCH (10:05)
[2020-11-20] MEDS: Insulin DETEMIR 100 UNIT/ML X5UNITS SUBQ SCH (20:33)
[2020-11-20] MEDS: Cholecalciferol (D-3) 1,000 UNIT (25MCG) TABLET PO SCH (20:33)
[2020-11-21 03:53] LABS: Basophils % 0.4 %; Eosinophils # 0.1 K/mcL (0.0-0.6); Eosinophils % 1.3 %; Hematocrit 38.3 % (37.5-50.1); Hemoglobin 12.2 g/dL (12.9-16.9); Immature Granulocytes % 0.4 % (0-4); Lymphocytes % 34.6 %; Mean Corpuscular HGB Conc 31.9 g/dL (31.6-35.5); Mean Corpuscular Hemoglobin 27.5 pg (28.0-33.3); Mean Corpuscular Volume 86.3 fL (83.0-100.0); Mean Platelet Volume 10.4 fL (9.4-12.4); Monocytes # 0.7 K/mcL (0.0-1.3); Monocytes % 8.5 %; Neutrophils # 4.7 K/mcL (1.6-8.9); Platelet Count 238 K/mcL (140-400); Red Blood Count 4.44 M/mcL (4.19-5.50); Red Cell Distribution Width 14.7 % (11.5-14.5); Segmented Neutrophils % 54.8 %; White Blood Count 8.5 K/mcL (4.3-11.1)
[2020-11-21 04:17] LABS: BUN/Creatinine Ratio 20 (6-26); Blood Urea Nitrogen 26 mg/dL (8-23); Calcium 8.9 mg/dL (8.6-10.3); Carbon Dioxide 29 mEq/L (23-29); Chloride 99 mEq/L (98-107); Glucose 274 mg/dL (70-105); Osmolality,Calculated 297 (280-300); Potassium 3.7 mEq/L (3.5-5.1); Sodium 136 mEq/L (136-145); eGFR For African Americans > 60 (> 60); eGFR For Non-African Americans 56 (> 60)
[2020-11-21] MEDS: *HR* Heparin 5,000 UNIT/ML VIAL SQ SCH ×2 (06:45→17:17)
[2020-11-21] MEDS: Budesonide/Formoterol 160/4.5 1 PUFF INH IH SCH (07:52)
[2020-11-21] MEDS: Insulin LISPRO 300 UNITS/3 ML VIAL SUBQ SCH ×4 (08:35→20:48)
[2020-11-21] MEDS: Aspirin Enteric Coated 81 MG Tablet PO SCH (08:35)
[2020-11-21] MEDS: Cholecalciferol (D-3) 1,000 UNIT (25MCG) TABLET PO SCH ×2 (08:35→20:48)
[2020-11-21] MEDS: Sucralfate 1 GM TABLET PO SCH ×3 (08:35→20:48)
[2020-11-21] MEDS: carvediloL 6.25 MG TABLET PO SCH ×2 (08:36→17:17)
[2020-11-21] MEDS: Spironolactone 25 MG TABLET PO SCH (08:36)
[2020-11-21] MEDS: Furosemide 20 MG/2 ML VIAL IVP SCH ×2 (08:36→20:48)
[2020-11-21] MEDS: Multivit/Ca/Min/Fe/FA 1 TAB TABLET PO SCH (08:36)
[2020-11-21] MEDS: lisinopriL 5 MG TABLET PO SCH (08:36)
[2020-11-21] MEDS ORDERED: Furosemide 20 MG/2 ML VIAL IVP ONE (08:53)
[2020-11-21] MEDS: *HR* Acetylcysteine 20% 600 MG/3 ML ORAL SYRINGE PO SCH (09:41)
[2020-11-21] MEDS ORDERED: Insulin DETEMIR 100 UNIT/ML X5UNITS SUBQ SCH (21:00)
[2020-11-22 02:12] LABS: Basophils % 0.4 %; Eosinophils # 0.1 K/mcL (0.0-0.6); Eosinophils % 1.2 %; Hematocrit 39.5 % (37.5-50.1); Hemoglobin 12.5 g/dL (12.9-16.9); Immature Granulocytes % 0.5 % (0-4); Lymphocytes # 3.2 K/mcL (0.6-4.6); Lymphocytes % 33.2 %; Mean Corpuscular HGB Conc 31.6 g/dL (31.6-35.5); Mean Corpuscular Volume 85.3 fL (83.0-100.0); Mean Platelet Volume 10.5 fL (9.4-12.4); Monocytes # 0.7 K/mcL (0.0-1.3); Neutrophils # 5.6 K/mcL (1.6-8.9); Platelet Count 278 K/mcL (140-400); Red Blood Count 4.63 M/mcL (4.19-5.50); Red Cell Distribution Width 14.9 % (11.5-14.5); Segmented Neutrophils % 57.7 %; White Blood Count 9.7 K/mcL (4.3-11.1)
[2020-11-22 02:25] LABS: BUN/Creatinine Ratio 22 (6-26); Blood Urea Nitrogen 28 mg/dL (8-23); Carbon Dioxide 28 mEq/L (23-29); Chloride 98 mEq/L (98-107); Glucose 337 mg/dL (70-105); Osmolality,Calculated 299 (280-300); Potassium 3.9 mEq/L (3.5-5.1); Sodium 135 mEq/L (136-145); eGFR For African Americans > 60 (> 60); eGFR For Non-African Americans 55 (> 60)
[2020-11-22] MEDS: *HR* Heparin 5,000 UNIT/ML VIAL SQ SCH (06:33)
[2020-11-22] MEDS: Budesonide/Formoterol 160/4.5 1 PUFF INH IH SCH (07:33)
[2020-11-22 07:44] VITALS: BP 158/69
[2020-11-22] MEDS: Cholecalciferol (D-3) 1,000 UNIT (25MCG) TABLET PO SCH (08:34)
[2020-11-22] MEDS: Sucralfate 1 GM TABLET PO SCH (08:34)
[2020-11-22] MEDS: Aspirin Enteric Coated 81 MG Tablet PO SCH (08:34)
[2020-11-22] MEDS: carvediloL 6.25 MG TABLET PO SCH (08:34)
[2020-11-22] MEDS: Spironolactone 25 MG TABLET PO SCH (08:34)
[2020-11-22] MEDS: lisinopriL 5 MG TABLET PO SCH (08:35)
[2020-11-22] MEDS: Multivit/Ca/Min/Fe/FA 1 TAB TABLET PO SCH (08:35)
[2020-11-22] MEDS: *HR* Acetylcysteine 20% 600 MG/3 ML ORAL SYRINGE PO SCH (08:35)
[2020-11-22] MEDS: Furosemide 20 MG/2 ML VIAL IVP SCH (08:35)
[2020-11-22] MEDS: Insulin LISPRO 300 UNITS/3 ML VIAL SUBQ SCH ×2 (08:37→13:44)
== END 2020-11-22 13:59 | disposition home or self-care (01) | DRG 292 ==
LOC: 2ANU 16:12 → EMEROOARM 16:12 → 2ANU 20:34
PROVIDERS: ADMIT Student in an Organized Health Care Education/Training Program; ATTEND Student in an Organized Health Care Education/Training Program

== ENCOUNTER 2021-02-15 15:02 | Inpatient (IN) ==
[2021-02-16] MEDS ORDERED: Isovue-370 500 ML BOTTLE IVP ONE ×2 (01:04→01:14)
[2021-02-16] MEDS ORDERED: Ipratropium/Albuterol Neb 3 ML IH ONE (01:05)
[2021-02-16 01:27] LABS: Basophils % 0.4 %; Eosinophils # 0.1 K/mcL (0.0-0.6); Eosinophils % 1.2 %; Hematocrit 43.7 % (37.5-50.1); Hemoglobin 13.4 g/dL (12.9-16.9); Immature Granulocytes % 0.5 % (0-4); Lymphocytes % 18.5 %; Mean Corpuscular HGB Conc 30.7 g/dL (31.6-35.5); Mean Corpuscular Hemoglobin 27.6 pg (28.0-33.3); Mean Corpuscular Volume 89.9 fL (83.0-100.0); Mean Platelet Volume 10.3 fL (9.4-12.4); Monocytes # 0.6 K/mcL (0.0-1.3); Monocytes % 5.7 %; Platelet Count 309 K/mcL (140-400); Red Blood Count 4.86 M/mcL (4.19-5.50); Red Cell Distribution Width 13.6 % (11.5-14.5); Segmented Neutrophils % 73.7 %; White Blood Count 10.9 K/mcL (4.3-11.1)
[2021-02-16 01:35] LABS: VBG HCO3 30 mEq/L (21-27); VBG PCO2 61 mmHg (41-51); VBG PO2 33 mmHg (25-50)
[2021-02-16 01:48] LABS: BUN/Creatinine Ratio 13 (6-26); Blood Urea Nitrogen 15 mg/dL (8-23); Carbon Dioxide 26 mEq/L (23-29); Chloride 104 mEq/L (98-107); Glucose 246 mg/dL (70-105); Osmolality,Calculated 297 (280-300); Potassium 4.2 mEq/L (3.5-5.1); Sodium 139 mEq/L (136-145); eGFR For African Americans > 60 (> 60); eGFR For Non-African Americans > 60 (> 60)
[2021-02-16 01:53] LABS: Troponin I 0.06 ng/mL (< 0.04)
[2021-02-16] MEDS ORDERED: Furosemide 40 MG/4 ML VIAL IVP ONE (02:14)
[2021-02-16] MEDS ORDERED: Piperacillin/Tazobactam 3.375 GM in 0.9 % Sodium Chloride Mini Bag 100 ML IVPB ONE (02:21)
[2021-02-16] MEDS ORDERED: Vancomycin 2,000 MG/520 ML IV.SOLN IVPB ONE (02:21)
[2021-02-16] MEDS ORDERED: Ondansetron 4 MG/2 ML VIAL IVP PRN (04:36)
[2021-02-16] MEDS ORDERED: Naloxone 0.4 MG/ML INJ IVP PRN ×2 (04:36→07:19)
[2021-02-16] MEDS ORDERED: Acetaminophen 325 MG TABLET PO PRN (04:36)
[2021-02-16] MEDS ORDERED: D5% in Water 1,000 ML IVC PRN (04:38)
[2021-02-16] MEDS ORDERED: *HR* Dextrose 50 % in Water (Vial) 50 ML VIAL IVP PRN (04:38)
[2021-02-16] MEDS ORDERED: Dextrose Gel 15 GM/37.5 ML TUBE PO PRN ×2 (04:38)
[2021-02-16] MEDS ORDERED: Vancomycin 1,750 MG in 0.9 % Sodium Chloride 250 ML IVPB SCH (05:00)
[2021-02-16 06:42] LABS: Bilirubin,Urine Negative (Negative); Blood,Urine Negative (Negative); Clarity,Urine Clear (Clear); Color,Urine Colorless (Yellow); Glucose,Urine (UA) Normal (Normal); Ketones,Urine Negative (Negative); Leukocyte Esterase,Urine Negative (Negative); Nitrite,Urine Negative (Negative); Protein,Urine 100 mg/dL (Neg-Trace); RBC,Urine 0-3 per hpf (0-3); Specific Gravity,Urine 1.015 (1.010-1.025); Urobilinogen,Urine Normal (Normal)
[2021-02-16] MEDS ORDERED: Piperacillin/Tazobactam 3.375 GM in 0.9 % Sodium Chloride Mini Bag 100 ML IVPB SCH (08:00)
[2021-02-16] MEDS: Insulin LISPRO 300 UNITS/3 ML VIAL SUBQ SCH ×4 (08:33→20:51)
[2021-02-16] MEDS ORDERED: Furosemide 40 MG/4 ML VIAL IVP SCH (09:00)
[2021-02-16 09:12] LABS: Estimated Average Glucose 258 mg/dl; Hemoglobin A1C 10.6 %
[2021-02-16 11:10] LABS: Troponin I 0.06 ng/mL (< 0.04)
[2021-02-16] MEDS ORDERED: Albuterol 2.5 MG/3 ML NEBULIZER IH PRN (11:23)
[2021-02-16 12:14] LABS: Magnesium 1.6 mg/dL (1.6-2.6)
[2021-02-16] MEDS: Isosorbide MONOnitrate (24 HR) 30 MG TAB.ER.24H PO SCH (12:16)
[2021-02-16] MEDS ORDERED: Vancomycin 1,250 MG/262.5 ML IV.SOLN IVPB SCH (15:00)
[2021-02-16] MEDS: Sucralfate 1 GM TABLET PO SCH ×2 (15:15→20:51)
[2021-02-16] MEDS: Furosemide 40 MG/4 ML VIAL IVP SCH (17:52)
[2021-02-16] MEDS: carvediloL 6.25 MG TABLET PO SCH (17:52)
[2021-02-16] MEDS: Insulin DETEMIR 100 UNIT/ML X5UNITS SUBQ SCH (20:51)
[2021-02-17] MEDS: *HR* Enoxaparin 40 MG/0.4 ML SYRINGE SQ SCH (05:56)
[2021-02-17 06:18] LABS: BUN/Creatinine Ratio 16 (6-26); Blood Urea Nitrogen 21 mg/dL (8-23); Calcium 8.5 mg/dL (8.6-10.3); Carbon Dioxide 30 mEq/L (23-29); Chloride 102 mEq/L (98-107); Glucose 49 mg/dL (70-105); Magnesium 1.6 mg/dL (1.6-2.6); Osmolality,Calculated 288 (280-300); Potassium 3.3 mEq/L (3.5-5.1); Sodium 139 mEq/L (136-145); eGFR For African Americans > 60 (> 60); eGFR For Non-African Americans 54 (> 60)
[2021-02-17 06:19] LABS: INR 1.2; Prothrombin Time 13.5 Seconds (9.4-12.1)
[2021-02-17] MEDS: Budesonide/Formoterol 160/4.5 1 PUFF INH IH SCH ×2 (07:39→20:29)
[2021-02-17] MEDS: lisinopriL 5 MG TABLET PO SCH (07:47)
[2021-02-17] MEDS: Furosemide 40 MG/4 ML VIAL IVP SCH ×2 (07:47→16:49)
[2021-02-17] MEDS: Isosorbide MONOnitrate (24 HR) 30 MG TAB.ER.24H PO SCH (07:48)
[2021-02-17] MEDS: carvediloL 6.25 MG TABLET PO SCH ×2 (07:48→16:49)
[2021-02-17] MEDS: Insulin LISPRO 300 UNITS/3 ML VIAL SUBQ SCH ×4 (07:48→20:41)
[2021-02-17] MEDS: Sucralfate 1 GM TABLET PO SCH ×3 (07:48→20:57)
[2021-02-17] MEDS: Spironolactone 12.5 MG TABLET PO SCH (07:48)
[2021-02-17] MEDS: Aspirin Enteric Coated 81 MG Tablet PO SCH (07:48)
[2021-02-17] MEDS: Insulin DETEMIR 100 UNIT/ML X5UNITS SUBQ SCH (20:57)
[2021-02-18 05:33] LABS: Hematocrit 35.5 % (37.5-50.1); Mean Corpuscular HGB Conc 30.1 g/dL (31.6-35.5); Mean Corpuscular Hemoglobin 27.3 pg (28.0-33.3); Mean Corpuscular Volume 90.6 fL (83.0-100.0); Mean Platelet Volume 10.1 fL (9.4-12.4); Platelet Count 277 K/mcL (140-400); Red Blood Count 3.92 M/mcL (4.19-5.50); Red Cell Distribution Width 13.7 % (11.5-14.5); White Blood Count 8.6 K/mcL (4.3-11.1)
[2021-02-18 05:34] LABS: Hemoglobin 10.7 g/dL (12.9-16.9)
[2021-02-18] MEDS: *HR* Enoxaparin 40 MG/0.4 ML SYRINGE SQ SCH (05:36)
[2021-02-18 05:55] LABS: Calcium 8.2 mg/dL (8.6-10.3); Magnesium 1.7 mg/dL (1.6-2.6); Potassium 3.4 mEq/L (3.5-5.1)
[2021-02-18] MEDS: Insulin LISPRO 300 UNITS/3 ML VIAL SUBQ SCH ×4 (08:27→20:15)
[2021-02-18] MEDS: lisinopriL 5 MG TABLET PO SCH (09:16)
[2021-02-18] MEDS: carvediloL 6.25 MG TABLET PO SCH ×2 (09:16→16:35)
[2021-02-18] MEDS: Spironolactone 12.5 MG TABLET PO SCH (09:16)
[2021-02-18] MEDS: Isosorbide MONOnitrate (24 HR) 30 MG TAB.ER.24H PO SCH (09:16)
[2021-02-18] MEDS: Aspirin Enteric Coated 81 MG Tablet PO SCH (09:16)
[2021-02-18] MEDS: Sucralfate 1 GM TABLET PO SCH ×4 (09:18→20:38)
[2021-02-18] MEDS: Budesonide/Formoterol 160/4.5 1 PUFF INH IH SCH ×2 (10:13→20:14)
[2021-02-18] MEDS: Furosemide 40 MG/4 ML VIAL IVP SCH (11:04)
[2021-02-18 15:35] LABS: Calcium 7.7 mg/dL (8.6-10.3); Potassium 3.8 mEq/L (3.5-5.1)
[2021-02-18] MEDS: Insulin DETEMIR 100 UNIT/ML X5UNITS SUBQ SCH (20:45)
[2021-02-19 03:59] LABS: Hematocrit 34.3 % (37.5-50.1); Hemoglobin 10.6 g/dL (12.9-16.9); Mean Corpuscular HGB Conc 30.9 g/dL (31.6-35.5); Mean Corpuscular Volume 90.5 fL (83.0-100.0); Mean Platelet Volume 10.4 fL (9.4-12.4); Platelet Count 274 K/mcL (140-400); Red Blood Count 3.79 M/mcL (4.19-5.50); Red Cell Distribution Width 13.3 % (11.5-14.5); White Blood Count 8.5 K/mcL (4.3-11.1)
[2021-02-19 04:14] LABS: Magnesium 1.9 mg/dL (1.6-2.6); Potassium 3.8 mEq/L (3.5-5.1)
[2021-02-19] MEDS: *HR* Enoxaparin 40 MG/0.4 ML SYRINGE SQ SCH (05:26)
[2021-02-19] MEDS: Budesonide/Formoterol 160/4.5 1 PUFF INH IH SCH ×2 (07:23→19:40)
[2021-02-19] MEDS: Isosorbide MONOnitrate (24 HR) 30 MG TAB.ER.24H PO SCH (08:17)
[2021-02-19] MEDS: Spironolactone 12.5 MG TABLET PO SCH (08:17)
[2021-02-19] MEDS: carvediloL 6.25 MG TABLET PO SCH ×2 (08:18→14:57)
[2021-02-19] MEDS: Aspirin Enteric Coated 81 MG Tablet PO SCH (08:18)
[2021-02-19] MEDS: Sucralfate 1 GM TABLET PO SCH ×3 (08:19→20:44)
[2021-02-19] MEDS: Insulin LISPRO 300 UNITS/3 ML VIAL SUBQ SCH ×4 (08:19→20:45)
[2021-02-19] MEDS: Furosemide 40 MG TABLET PO SCH ×2 (09:52→14:57)
[2021-02-19] MEDS: Insulin DETEMIR 100 UNIT/ML X5UNITS SUBQ SCH (20:45)
[2021-02-20] MEDS: *HR* Enoxaparin 40 MG/0.4 ML SYRINGE SQ SCH (05:58)
[2021-02-20 07:14] LABS: Calcium 8.4 mg/dL (8.6-10.3); Potassium 4.3 mEq/L (3.5-5.1)
[2021-02-20] MEDS: Budesonide/Formoterol 160/4.5 1 PUFF INH IH SCH (07:33)
[2021-02-20] MEDS: Aspirin Enteric Coated 81 MG Tablet PO SCH (07:56)
[2021-02-20] MEDS: Isosorbide MONOnitrate (24 HR) 30 MG TAB.ER.24H PO SCH (07:57)
[2021-02-20] MEDS: Furosemide 40 MG TABLET PO SCH (07:57)
[2021-02-20] MEDS: Spironolactone 12.5 MG TABLET PO SCH (07:57)
[2021-02-20] MEDS: carvediloL 6.25 MG TABLET PO SCH (07:57)
[2021-02-20] MEDS: Sucralfate 1 GM TABLET PO SCH (07:58)
[2021-02-20] MEDS: Insulin LISPRO 300 UNITS/3 ML VIAL SUBQ SCH ×2 (07:59→12:10)
[2021-02-20] MEDS ORDERED: lisinopriL 5 MG TABLET PO SCH (09:00)
[2021-02-20 10:48] VITALS: BP 92/55
== END 2021-02-20 13:40 | disposition home health service (06) | DRG 291 ==
LOC: EMEROOARM 15:02 → CDU 15:02 → SUATTDRO 02-16 03:37 → CDU 02-16 05:27 → 3BNU 02-18 16:59
PROVIDERS: ADMIT Internal Medicine; ATTEND Internal Medicine

== ENCOUNTER 2021-06-16 12:20 | Inpatient (IN) ==
[2021-06-16 13:11] LABS: Basophils # 0.1 K/mcL (0.0-0.2); Basophils % 0.2 %; Hematocrit 39.8 % (37.5-50.1); Hemoglobin 13.1 g/dL (12.9-16.9); Immature Granulocytes % 0.9 % (0-4); Lymphocytes % 8.8 %; Mean Corpuscular HGB Conc 32.9 g/dL (31.6-35.5); Mean Corpuscular Hemoglobin 27.9 pg (28.0-33.3); Mean Corpuscular Volume 84.7 fL (83.0-100.0); Mean Platelet Volume 10.7 fL (9.4-12.4); Monocytes # 2.2 K/mcL (0.0-1.3); Monocytes % 9.4 %; Neutrophils # 18.5 K/mcL (1.6-8.9); Platelet Count 271 K/mcL (140-400); Red Cell Distribution Width 14.7 % (11.5-14.5); Segmented Neutrophils % 80.7 %
[2021-06-16 13:30] LABS: VBG HCO3 22 mEq/L (21-27); VBG PCO2 27 mmHg (41-51); VBG PH 7.51 pH Units (7.32-7.42); VBG PO2 169 mmHg (25-50)
[2021-06-16 13:30] LABS: Albumin 2.8 g/dL (3.5-5.7); Albumin/Globulin Ratio 0.7 (1.1-2.2); Bilirubin,Total 0.6 mg/dL (0.3-1.0); Calcium 10.4 mg/dL (8.6-10.3); Potassium 3.6 mEq/L (3.5-5.1); Total Protein 6.8 g/dL (6.4-8.9)
[2021-06-16] MEDS ORDERED: Piperacillin/Tazobactam 3.375 GM in 0.9 % Sodium Chloride Mini Bag 100 ML IVPB ONE (14:02)
[2021-06-16] MEDS ORDERED: 0.9 % Sodium Chloride 500 ML IVC ONE (14:02)
[2021-06-16 14:27] LABS: Troponin I 0.36 ng/mL (< 0.04)
[2021-06-16] MEDS ORDERED: Naloxone 0.4 MG/ML INJ IVP PRN (15:22)
[2021-06-16] MEDS ORDERED: Ondansetron 4 MG/2 ML VIAL IVP PRN (15:22)
[2021-06-16] MEDS ORDERED: Dextrose Gel 15 GM/37.5 ML TUBE PO PRN ×2 (15:26)
[2021-06-16] MEDS ORDERED: *HR* Dextrose 50 % in Water (Vial) 50 ML VIAL IVP PRN (15:26)
[2021-06-16] MEDS ORDERED: D5% in Water 1,000 ML IVC PRN (15:26)
[2021-06-16] MEDS ORDERED: *HR* Heparin 5,000 UNIT/ML VIAL IVP PRN (15:56)
[2021-06-16] MEDS ORDERED: *HR* Heparin 5,000 UNIT/ML VIAL IVP ONE (15:56)
[2021-06-16 16:04] LABS: Estimated Average Glucose 338 mg/dl; Hemoglobin A1C 13.4 %
[2021-06-16] MEDS ORDERED: Perflutren Lipid Microsphere 1.3 ML in 0.9 % Sodium Chloride 8.7 ML IVP PRN (16:39)
[2021-06-16 16:46] LABS: Bacteria,Urine Few per hpf (None-Few); Bilirubin,Urine Negative (Negative); Blood,Urine Moderate (Negative); Clarity,Urine Ex.Turbid (Clear); Color,Urine Yellow (Yellow); Glucose,Urine (UA) >=1000 mg/dL (Normal); Ketones,Urine Negative (Negative); Leukocyte Esterase,Urine Small (Negative); Mucus,Urine Few per lpf (None-Few); Nitrite,Urine Negative (Negative); PH,Urine 5.5 pH Units (5.0-8.0); Protein,Urine >=300 mg/dL (Neg-Trace); RBC,Urine 50-100 per hpf (0-3); Specific Gravity,Urine 1.019 (1.010-1.025); Squamous Epithelial Cell,Urine Few per hpf (None-Few); Transitional Epi Cells,Urine Few per hpf (None-Few); Urobilinogen,Urine Normal (Normal); WBC,Urine 50-100 per hpf (0-3)
[2021-06-16] MEDS: Heparin 25,000UNIT/250ML 1/2NS 25,000 UNIT/250 ML IV.SOLN IVC SCH (17:36)
[2021-06-16] MEDS: Insulin LISPRO 300 UNITS/3 ML VIAL SUBQ SCH (17:37)
[2021-06-16] MEDS: carvediloL 6.25 MG TABLET PO SCH (17:38)
[2021-06-16] MEDS: Insulin DETEMIR 100 UNIT/ML X5UNITS SUBQ SCH (21:10)
[2021-06-16] MEDS: Piperacillin/Tazobactam 3.375 GM in 0.9 % Sodium Chloride Mini Bag 100 ML IVPB SCH (21:41)
[2021-06-16] MEDS: 0.9 % Sodium Chloride 1,000 ML IVC SCH (22:02)
[2021-06-17] MEDS: *HR* Heparin 5,000 UNIT/ML VIAL IVP PRN ×2 (01:19→15:45)
[2021-06-17] MEDS: Piperacillin/Tazobactam 3.375 GM in 0.9 % Sodium Chloride Mini Bag 100 ML IVPB SCH ×2 (05:44→19:06)
[2021-06-17 06:06] LABS: Basophils % 0.2 %; Eosinophils % 0.1 %; Hematocrit 36.9 % (37.5-50.1); Hemoglobin 12.1 g/dL (12.9-16.9); Immature Granulocytes % 0.8 % (0-4); Lymphocytes # 1.8 K/mcL (0.6-4.6); Lymphocytes % 9.3 %; Mean Corpuscular HGB Conc 32.8 g/dL (31.6-35.5); Mean Corpuscular Hemoglobin 28.1 pg (28.0-33.3); Mean Corpuscular Volume 85.8 fL (83.0-100.0); Mean Platelet Volume 10.9 fL (9.4-12.4); Monocytes # 1.5 K/mcL (0.0-1.3); Monocytes % 7.7 %; Neutrophils # 15.8 K/mcL (1.6-8.9); Platelet Count 265 K/mcL (140-400); Red Cell Distribution Width 14.9 % (11.5-14.5); Segmented Neutrophils % 81.9 %; White Blood Count 19.3 K/mcL (4.3-11.1)
[2021-06-17 06:12] LABS: Adenovirus Not Detected (Not Detect); Bordetella Pertussis Not Detected (Not Detect); Chlamydophila pneumoniae Not Detected (Not Detect); Coronavirus 229E Not Detected (Not Detect); Coronavirus HKU1 Not Detected (Not Detect); Coronavirus NL63 Not Detected (Not Detect); Coronavirus OC43 Not Detected (Not Detect); Human Metapneumovirus Not Detected (Not Detect); Human Rhinovirus/Enterovirus Not Detected (Not Detect); Influenza A Subtype 2009 H1 Not Detected (Not Detect); Influenza B Not Detected (Not Detect); Mycoplasma pneumoniae Not Detected (Not Detect); Parainfluenza Virus 1 Not Detected (Not Detect); Parainfluenza Virus 2 Not Detected (Not Detect); Parainfluenza Virus 3 Not Detected (Not Detect); Parainfluenza Virus 4 Not Detected (Not Detect); Respiratory Syncytial Virus Not Detected (Not Detect); SARS-CoV-2 Not Detected (Not Detect)
[2021-06-17 07:59] LABS: Calcium 9.4 mg/dL (8.6-10.3); Phosphorous 3.1 mg/dL (2.7-4.5); Potassium 4.1 mEq/L (3.5-5.1)
[2021-06-17] MEDS: 0.9 % Sodium Chloride 1,000 ML IVC SCH (08:17)
[2021-06-17] MEDS: Insulin LISPRO 300 UNITS/3 ML VIAL SUBQ SCH ×3 (08:21→16:11)
[2021-06-17] MEDS: carvediloL 6.25 MG TABLET PO SCH ×2 (08:24→19:05)
[2021-06-17] MEDS: Aspirin Enteric Coated 81 MG Tablet PO SCH (08:24)
[2021-06-17] MEDS ORDERED: Spironolactone 12.5 MG TABLET PO SCH (09:00)
[2021-06-17] MEDS ORDERED: lisinopriL 5 MG TABLET PO SCH (09:00)
[2021-06-17] MEDS ORDERED: Isosorbide MONOnitrate (24 HR) 30 MG TAB.ER.24H PO SCH (09:00)
[2021-06-17] MEDS: Acetaminophen 325 MG TABLET PO PRN (12:05)
[2021-06-17 15:06] LABS: Uric Acid 9.8 mg/dL (2.3-7.6)
[2021-06-17] MEDS: Heparin 25,000UNIT/250ML 1/2NS 25,000 UNIT/250 ML IV.SOLN IVC SCH (15:42)
[2021-06-17 16:36] LABS: Protein/Creatinine Ratio,Urine 0.34 mg/mg (0.00-0.20); Sodium, Urine 27.3 mEq/L
[2021-06-17] MEDS ORDERED: 0.9 % Sodium Chloride 500 ML IVC SCH (20:15)
[2021-06-17] MEDS: Insulin DETEMIR 100 UNIT/ML X5UNITS SUBQ SCH (21:15)
[2021-06-18 04:45] LABS: Basophils % 0.2 %; Eosinophils % 0.2 %; Hematocrit 32.7 % (37.5-50.1); Hemoglobin 10.6 g/dL (12.9-16.9); Immature Granulocytes % 0.9 % (0-4); Lymphocytes # 1.4 K/mcL (0.6-4.6); Lymphocytes % 7.7 %; Mean Corpuscular HGB Conc 32.4 g/dL (31.6-35.5); Mean Corpuscular Volume 86.5 fL (83.0-100.0); Mean Platelet Volume 10.6 fL (9.4-12.4); Monocytes # 1.3 K/mcL (0.0-1.3); Monocytes % 7.1 %; Neutrophils # 14.7 K/mcL (1.6-8.9); Platelet Count 263 K/mcL (140-400); Red Blood Count 3.78 M/mcL (4.19-5.50); Segmented Neutrophils % 83.9 %; White Blood Count 17.5 K/mcL (4.3-11.1)
[2021-06-18 05:05] LABS: Calcium 8.3 mg/dL (8.6-10.3); Potassium 4.1 mEq/L (3.5-5.1)
[2021-06-18] MEDS: Heparin 25,000UNIT/250ML 1/2NS 25,000 UNIT/250 ML IV.SOLN IVC SCH (06:32)
[2021-06-18] MEDS: Piperacillin/Tazobactam 3.375 GM in 0.9 % Sodium Chloride Mini Bag 100 ML IVPB SCH ×2 (06:33→16:47)
[2021-06-18] MEDS: 0.9 % Sodium Chloride 1,000 ML IVC SCH (07:09)
[2021-06-18] MEDS: Aspirin Enteric Coated 81 MG Tablet PO SCH (08:53)
[2021-06-18] MEDS: Insulin LISPRO 300 UNITS/3 ML VIAL SUBQ SCH ×3 (08:53→16:48)
[2021-06-18] MEDS: carvediloL 6.25 MG TABLET PO SCH ×2 (08:53→16:46)
[2021-06-18] MEDS: *HR* Heparin 5,000 UNIT/ML VIAL SQ SCH (16:46)
[2021-06-18] MEDS: Insulin DETEMIR 100 UNIT/ML X5UNITS SUBQ SCH (21:15)
[2021-06-19] MEDS ORDERED: Benzonatate 100 MG CAPSULE PO PRN (04:31)
[2021-06-19 05:18] LABS: Basophils % 0.2 %; Eosinophils # 0.1 K/mcL (0.0-0.6); Eosinophils % 0.6 %; Hematocrit 31.9 % (37.5-50.1); Hemoglobin 10.1 g/dL (12.9-16.9); Immature Granulocytes % 0.7 % (0-4); Lymphocytes # 1.3 K/mcL (0.6-4.6); Mean Corpuscular HGB Conc 31.7 g/dL (31.6-35.5); Mean Corpuscular Hemoglobin 27.7 pg (28.0-33.3); Mean Corpuscular Volume 87.4 fL (83.0-100.0); Mean Platelet Volume 10.3 fL (9.4-12.4); Monocytes # 1.1 K/mcL (0.0-1.3); Monocytes % 7.6 %; Neutrophils # 11.9 K/mcL (1.6-8.9); Platelet Count 270 K/mcL (140-400); Red Blood Count 3.65 M/mcL (4.19-5.50); Red Cell Distribution Width 14.8 % (11.5-14.5); Segmented Neutrophils % 81.9 %; White Blood Count 14.5 K/mcL (4.3-11.1)
[2021-06-19 05:38] LABS: Calcium 7.9 mg/dL (8.6-10.3); Potassium 4.1 mEq/L (3.5-5.1)
[2021-06-19] MEDS: *HR* Heparin 5,000 UNIT/ML VIAL SQ SCH ×2 (06:17→18:05)
[2021-06-19] MEDS: Piperacillin/Tazobactam 3.375 GM in 0.9 % Sodium Chloride Mini Bag 100 ML IVPB SCH ×2 (06:18→18:19)
[2021-06-19] MEDS: Insulin LISPRO 300 UNITS/3 ML VIAL SUBQ SCH ×3 (07:57→18:20)
[2021-06-19] MEDS: carvediloL 6.25 MG TABLET PO SCH ×2 (08:12→15:30)
[2021-06-19] MEDS: Aspirin Enteric Coated 81 MG Tablet PO SCH (08:12)
[2021-06-19] MEDS ORDERED: Albumin 25% 25gram/100mL 25 GM/100 ML IV.SOLN IVPB ONE (10:20)
[2021-06-19] MEDS ORDERED: Furosemide 40 MG/4 ML VIAL IVP ONE (10:50)
[2021-06-19] MEDS ORDERED: Furosemide 40 MG/4 ML VIAL ONE (15:14)
[2021-06-19] MEDS: Insulin DETEMIR 100 UNIT/ML X5UNITS SUBQ SCH (21:22)
[2021-06-19] MEDS: Ipratropium/Albuterol Neb 3 ML IH PRN (21:36)
[2021-06-20 02:49] LABS: Hematocrit 28.8 % (37.5-50.1); Hemoglobin 9.1 g/dL (12.9-16.9); Mean Corpuscular HGB Conc 31.6 g/dL (31.6-35.5); Mean Corpuscular Hemoglobin 27.6 pg (28.0-33.3); Mean Corpuscular Volume 87.3 fL (83.0-100.0); Mean Platelet Volume 10.3 fL (9.4-12.4); Platelet Count 286 K/mcL (140-400); White Blood Count 13.6 K/mcL (4.3-11.1)
[2021-06-20 03:08] LABS: Calcium 7.9 mg/dL (8.6-10.3); Potassium 4.1 mEq/L (3.5-5.1)
[2021-06-20] MEDS: Ipratropium/Albuterol Neb 3 ML IH PRN (03:31)
[2021-06-20] MEDS: *HR* Heparin 5,000 UNIT/ML VIAL SQ SCH ×2 (05:24→17:22)
[2021-06-20] MEDS: Piperacillin/Tazobactam 3.375 GM in 0.9 % Sodium Chloride Mini Bag 100 ML IVPB SCH ×2 (05:24→17:22)
[2021-06-20] MEDS: carvediloL 6.25 MG TABLET PO SCH (08:03)
[2021-06-20] MEDS: Aspirin Enteric Coated 81 MG Tablet PO SCH (08:03)
[2021-06-20] MEDS: Insulin LISPRO 300 UNITS/3 ML VIAL SUBQ SCH ×2 (11:46→17:22)
[2021-06-20] MEDS: Insulin DETEMIR 100 UNIT/ML X5UNITS SUBQ SCH (20:59)
[2021-06-21 03:01] LABS: Calcium 7.9 mg/dL (8.6-10.3); Potassium 4.2 mEq/L (3.5-5.1)
[2021-06-21 03:07] LABS: Basophils % 0.2 %; Eosinophils # 0.1 K/mcL (0.0-0.6); Eosinophils % 0.8 %; Hematocrit 30.1 % (37.5-50.1); Hemoglobin 9.5 g/dL (12.9-16.9); Immature Granulocytes % 0.7 % (0-4); Lymphocytes # 1.1 K/mcL (0.6-4.6); Lymphocytes % 9.2 %; Mean Corpuscular HGB Conc 31.6 g/dL (31.6-35.5); Mean Corpuscular Hemoglobin 27.6 pg (28.0-33.3); Mean Corpuscular Volume 87.5 fL (83.0-100.0); Mean Platelet Volume 10.2 fL (9.4-12.4); Neutrophils # 9.9 K/mcL (1.6-8.9); Platelet Count 317 K/mcL (140-400); Red Blood Count 3.44 M/mcL (4.19-5.50); Red Cell Distribution Width 15.1 % (11.5-14.5); Segmented Neutrophils % 81.1 %; White Blood Count 12.2 K/mcL (4.3-11.1)
[2021-06-21] MEDS: Piperacillin/Tazobactam 3.375 GM in 0.9 % Sodium Chloride Mini Bag 100 ML IVPB SCH (05:37)
[2021-06-21] MEDS: *HR* Heparin 5,000 UNIT/ML VIAL SQ SCH ×2 (05:42→17:50)
[2021-06-21] MEDS ORDERED: 0.9 % Sodium Chloride 250 ML IVC PRN (07:19)
[2021-06-21] MEDS ORDERED: 0.9 % Sodium Chloride 1,000 ML PRIME SCH (07:30)
[2021-06-21] MEDS: Insulin LISPRO 300 UNITS/3 ML VIAL SUBQ SCH ×3 (09:22→17:42)
[2021-06-21] MEDS: Aspirin Enteric Coated 81 MG Tablet PO SCH (09:29)
[2021-06-21] MEDS ORDERED: Heparin 1,000 UNITS/500 mL 500 ML ONE (10:08)
[2021-06-21 10:29] LABS: Hepatitis B Surface Antibody 52.42 mIU/mL
[2021-06-21 10:30] LABS: Serine Protease-3 Antibody 0 AU/mL (0-19)
[2021-06-21 10:41] LABS: Hepatitis B Surface Antigen Nonreactive (Nonreactive)
[2021-06-21] MEDS ORDERED: *HR* Heparin 5,000 UNIT/ML VIAL ONE (11:11)
[2021-06-21 13:21] LABS: ANA IgG by ELISA NONE DETECTED (None Detected)
[2021-06-21] MEDS: Amoxicillin/Clavulanate 500 MG TABLET PO SCH (17:49)
[2021-06-21] MEDS: Insulin DETEMIR 100 UNIT/ML X5UNITS SUBQ SCH (21:41)
[2021-06-22 01:39] LABS: Beta Globulin (PEP) 0.87 g/dL (0.48-1.10)
[2021-06-22] MEDS: *HR* Heparin 5,000 UNIT/ML VIAL SQ SCH ×2 (05:31→16:20)
[2021-06-22 06:52] LABS: Basophils % 0.2 %; Eosinophils # 0.1 K/mcL (0.0-0.6); Eosinophils % 0.9 %; Hematocrit 31.4 % (37.5-50.1); Hemoglobin 9.8 g/dL (12.9-16.9); Immature Granulocytes % 0.9 % (0-4); Lymphocytes # 1.5 K/mcL (0.6-4.6); Lymphocytes % 11.5 %; Mean Corpuscular HGB Conc 31.2 g/dL (31.6-35.5); Mean Corpuscular Hemoglobin 27.5 pg (28.0-33.3); Mean Platelet Volume 9.4 fL (9.4-12.4); Monocytes # 1.4 K/mcL (0.0-1.3); Monocytes % 10.5 %; Neutrophils # 9.9 K/mcL (1.6-8.9); Platelet Count 420 K/mcL (140-400); Red Blood Count 3.57 M/mcL (4.19-5.50); White Blood Count 13.1 K/mcL (4.3-11.1)
[2021-06-22 07:08] LABS: Magnesium 2.3 mg/dL (1.6-2.6); Phosphorous 3.9 mg/dL (2.7-4.5)
[2021-06-22 07:10] LABS: Potassium 3.7 mEq/L (3.5-5.1)
[2021-06-22] MEDS ORDERED: 0.9 % Sodium Chloride 250 ML IVC PRN (07:10)
[2021-06-22] MEDS ORDERED: *HR* Heparin 10,000 UNIT/10 ML VIAL IV PRN (07:33)
[2021-06-22] MEDS: Insulin LISPRO 300 UNITS/3 ML VIAL SUBQ SCH ×3 (07:35→16:20)
[2021-06-22 11:00] LABS: IFE Reflexed NOT DONE
[2021-06-22] MEDS: Amoxicillin/Clavulanate 500 MG TABLET PO SCH ×2 (12:16→16:19)
[2021-06-22] MEDS: Aspirin Enteric Coated 81 MG Tablet PO SCH (12:16)
[2021-06-22] MEDS ORDERED: Insulin DETEMIR 100 UNIT/ML X5UNITS SUBQ SCH (21:00)
[2021-06-23] MEDS: Acetaminophen 325 MG TABLET PO PRN (00:43)
[2021-06-23] MEDS: *HR* Heparin 5,000 UNIT/ML VIAL SQ SCH ×2 (06:13→17:12)
[2021-06-23] MEDS ORDERED: 0.9 % Sodium Chloride 1,000 ML ONE (07:04)
[2021-06-23] MEDS ORDERED: 0.9 % Sodium Chloride 250 ML IVC PRN (07:14)
[2021-06-23 08:14] LABS: Basophils % 0.4 %; Eosinophils # 0.1 K/mcL (0.0-0.6); Eosinophils % 1.1 %; Hematocrit 31.9 % (37.5-50.1); Hemoglobin 9.8 g/dL (12.9-16.9); Immature Granulocytes % 1.2 % (0-4); Lymphocytes # 1.2 K/mcL (0.6-4.6); Mean Corpuscular HGB Conc 30.7 g/dL (31.6-35.5); Mean Corpuscular Hemoglobin 27.6 pg (28.0-33.3); Mean Corpuscular Volume 89.9 fL (83.0-100.0); Mean Platelet Volume 9.6 fL (9.4-12.4); Monocytes % 9.2 %; Neutrophils # 8.7 K/mcL (1.6-8.9); Platelet Count 383 K/mcL (140-400); Red Blood Count 3.55 M/mcL (4.19-5.50); Red Cell Distribution Width 15.1 % (11.5-14.5); Segmented Neutrophils % 77.1 %; White Blood Count 11.3 K/mcL (4.3-11.1)
[2021-06-23 08:33] LABS: Magnesium 2.2 mg/dL (1.6-2.6); Phosphorous 3.5 mg/dL (2.7-4.5); Potassium 4.1 mEq/L (3.5-5.1)
[2021-06-23] MEDS: Insulin LISPRO 300 UNITS/3 ML VIAL SUBQ SCH ×6 (08:33→17:14)
[2021-06-23] MEDS: Insulin DETEMIR 100 UNIT/ML X5UNITS SUBQ SCH ×2 (08:56→22:20)
[2021-06-23 10:54] LABS: Calcium 8.1 mg/dL (8.6-10.3)
[2021-06-23] MEDS: Amoxicillin/Clavulanate 500 MG TABLET PO SCH (12:13)
[2021-06-23] MEDS: Aspirin Enteric Coated 81 MG Tablet PO SCH (13:23)
[2021-06-24] MEDS: *HR* Heparin 5,000 UNIT/ML VIAL SQ SCH ×2 (04:46→16:37)
[2021-06-24 05:09] LABS: Basophils % 0.3 %; Eosinophils # 0.1 K/mcL (0.0-0.6); Hematocrit 32.5 % (37.5-50.1); Hemoglobin 10.4 g/dL (12.9-16.9); Immature Granulocytes % 1.4 % (0-4); Lymphocytes # 1.4 K/mcL (0.6-4.6); Lymphocytes % 10.2 %; Mean Corpuscular Hemoglobin 28.3 pg (28.0-33.3); Mean Corpuscular Volume 88.3 fL (83.0-100.0); Mean Platelet Volume 9.1 fL (9.4-12.4); Monocytes % 7.5 %; Platelet Count 379 K/mcL (140-400); Red Blood Count 3.68 M/mcL (4.19-5.50); Red Cell Distribution Width 14.7 % (11.5-14.5); Segmented Neutrophils % 79.6 %; White Blood Count 13.9 K/mcL (4.3-11.1)
[2021-06-24 05:33] LABS: Calcium 8.1 mg/dL (8.6-10.3); Potassium 3.9 mEq/L (3.5-5.1)
[2021-06-24] MEDS: Insulin LISPRO 300 UNITS/3 ML VIAL SUBQ SCH ×6 (08:02→16:38)
[2021-06-24] MEDS: Insulin DETEMIR 100 UNIT/ML X5UNITS SUBQ SCH ×2 (08:02→21:25)
[2021-06-24] MEDS: Aspirin Enteric Coated 81 MG Tablet PO SCH (08:03)
[2021-06-24] MEDS ORDERED: Furosemide 40 MG/4 ML VIAL IVP ONE (11:01)
[2021-06-25 03:33] LABS: Basophils % 0.2 %; Eosinophils # 0.2 K/mcL (0.0-0.6); Eosinophils % 1.1 %; Hematocrit 32.9 % (37.5-50.1); Hemoglobin 10.3 g/dL (12.9-16.9); Immature Granulocytes % 1.3 % (0-4); Lymphocytes # 1.5 K/mcL (0.6-4.6); Lymphocytes % 9.8 %; Mean Corpuscular HGB Conc 31.3 g/dL (31.6-35.5); Mean Corpuscular Hemoglobin 27.7 pg (28.0-33.3); Mean Corpuscular Volume 88.4 fL (83.0-100.0); Mean Platelet Volume 9.2 fL (9.4-12.4); Monocytes # 1.1 K/mcL (0.0-1.3); Monocytes % 7.7 %; Neutrophils # 11.8 K/mcL (1.6-8.9); Platelet Count 373 K/mcL (140-400); Red Blood Count 3.72 M/mcL (4.19-5.50); Red Cell Distribution Width 14.7 % (11.5-14.5); Segmented Neutrophils % 79.9 %; White Blood Count 14.8 K/mcL (4.3-11.1)
[2021-06-25 03:55] LABS: Calcium 8.3 mg/dL (8.6-10.3); Magnesium 1.8 mg/dL (1.6-2.6); Phosphorous 3.7 mg/dL (2.7-4.5); Potassium 3.7 mEq/L (3.5-5.1)
[2021-06-25] MEDS: *HR* Heparin 5,000 UNIT/ML VIAL SQ SCH ×2 (06:27→18:07)
[2021-06-25] MEDS ORDERED: 0.9 % Sodium Chloride 1,000 ML ONE (07:01)
[2021-06-25] MEDS: Insulin LISPRO 300 UNITS/3 ML VIAL SUBQ SCH ×6 (07:35→18:20)
[2021-06-25] MEDS: Aspirin Enteric Coated 81 MG Tablet PO SCH (07:35)
[2021-06-25] MEDS: carvediloL 6.25 MG TABLET PO SCH ×2 (07:35→18:07)
[2021-06-25] MEDS: Insulin DETEMIR 100 UNIT/ML X5UNITS SUBQ SCH ×2 (08:23→21:39)
[2021-06-25] MEDS: Ipratropium/Albuterol Neb 3 ML IH PRN (15:01)
[2021-06-25] MEDS: Furosemide 20 MG/2 ML VIAL IVP SCH (21:38)
[2021-06-26] MEDS: *HR* Heparin 5,000 UNIT/ML VIAL SQ SCH ×2 (04:48→16:47)
[2021-06-26 05:04] LABS: Basophils % 0.2 %; Eosinophils # 0.2 K/mcL (0.0-0.6); Eosinophils % 1.3 %; Hematocrit 32.3 % (37.5-50.1); Hemoglobin 10.1 g/dL (12.9-16.9); Immature Granulocytes % 1.3 % (0-4); Lymphocytes # 1.2 K/mcL (0.6-4.6); Lymphocytes % 7.8 %; Mean Corpuscular HGB Conc 31.3 g/dL (31.6-35.5); Mean Corpuscular Hemoglobin 27.7 pg (28.0-33.3); Mean Corpuscular Volume 88.7 fL (83.0-100.0); Monocytes % 6.4 %; Neutrophils # 12.4 K/mcL (1.6-8.9); Platelet Count 356 K/mcL (140-400); Red Blood Count 3.64 M/mcL (4.19-5.50); Red Cell Distribution Width 14.5 % (11.5-14.5)
[2021-06-26 05:24] LABS: Calcium 8.5 mg/dL (8.6-10.3); Magnesium 1.7 mg/dL (1.6-2.6); Phosphorous 4.1 mg/dL (2.7-4.5); Potassium 4.1 mEq/L (3.5-5.1)
[2021-06-26] MEDS: Aspirin Enteric Coated 81 MG Tablet PO SCH (08:23)
[2021-06-26] MEDS: Furosemide 20 MG/2 ML VIAL IVP SCH ×2 (08:23→21:34)
[2021-06-26] MEDS: Insulin LISPRO 300 UNITS/3 ML VIAL SUBQ SCH ×6 (08:23→16:36)
[2021-06-26] MEDS: carvediloL 6.25 MG TABLET PO SCH ×2 (08:23→16:47)
[2021-06-26] MEDS: Insulin DETEMIR 100 UNIT/ML X5UNITS SUBQ SCH ×2 (08:24→21:35)
[2021-06-26 14:19] LABS: Amorphous Sediment,Urine Few per hpf (None-Few); Bacteria,Urine Few per hpf (None-Few); Bilirubin,Urine Negative (Negative); Blood,Urine Large (Negative); Clarity,Urine Turbid (Clear); Color,Urine Light-Yellow (Yellow); Glucose,Urine (UA) 30 mg/dL (Normal); Hyaline Casts,Urine Few per lpf (None Seen); Ketones,Urine Negative (Negative); Leukocyte Esterase,Urine Negative (Negative); Mucus,Urine Few per lpf (None-Few); Nitrite,Urine Negative (Negative); PH,Urine 5.5 pH Units (5.0-8.0); Protein,Urine 70 mg/dL (Neg-Trace); RBC,Urine 50-100 per hpf (0-3); Specific Gravity,Urine 1.012 (1.010-1.025); Urobilinogen,Urine Normal (Normal)
[2021-06-27 05:02] LABS: Basophils % 0.2 %; Eosinophils # 0.2 K/mcL (0.0-0.6); Eosinophils % 1.4 %; Hematocrit 33.2 % (37.5-50.1); Hemoglobin 10.4 g/dL (12.9-16.9); Immature Granulocytes % 0.9 % (0-4); Lymphocytes # 1.3 K/mcL (0.6-4.6); Lymphocytes % 9.7 %; Mean Corpuscular HGB Conc 31.3 g/dL (31.6-35.5); Mean Corpuscular Hemoglobin 27.9 pg (28.0-33.3); Mean Platelet Volume 9.1 fL (9.4-12.4); Monocytes # 0.8 K/mcL (0.0-1.3); Neutrophils # 11.3 K/mcL (1.6-8.9); Platelet Count 359 K/mcL (140-400); Red Blood Count 3.73 M/mcL (4.19-5.50); Red Cell Distribution Width 14.2 % (11.5-14.5); Segmented Neutrophils % 81.8 %; White Blood Count 13.8 K/mcL (4.3-11.1)
[2021-06-27 05:22] LABS: Calcium 8.8 mg/dL (8.6-10.3); Magnesium 1.6 mg/dL (1.6-2.6)
[2021-06-27] MEDS: *HR* Heparin 5,000 UNIT/ML VIAL SQ SCH ×2 (06:18→17:06)
[2021-06-27] MEDS: Acetaminophen 325 MG TABLET PO PRN ×2 (06:22→19:37)
[2021-06-27] MEDS: Insulin LISPRO 300 UNITS/3 ML VIAL SUBQ SCH ×6 (07:56→17:06)
[2021-06-27] MEDS: Furosemide 20 MG/2 ML VIAL IVP SCH (07:56)
[2021-06-27] MEDS: Insulin DETEMIR 100 UNIT/ML X5UNITS SUBQ SCH ×2 (07:56→20:24)
[2021-06-27] MEDS: Aspirin Enteric Coated 81 MG Tablet PO SCH (07:56)
[2021-06-27] MEDS: carvediloL 6.25 MG TABLET PO SCH ×2 (07:57→17:06)
[2021-06-27] MEDS: Furosemide 20 MG TABLET PO SCH (17:06)
[2021-06-28] MEDS: *HR* Heparin 5,000 UNIT/ML VIAL SQ SCH ×2 (05:31→16:46)
[2021-06-28] MEDS: Aspirin Enteric Coated 81 MG Tablet PO SCH (09:21)
[2021-06-28] MEDS: Furosemide 20 MG TABLET PO SCH ×2 (09:21→16:45)
[2021-06-28] MEDS: carvediloL 6.25 MG TABLET PO SCH ×2 (09:21→16:45)
[2021-06-28] MEDS: Insulin DETEMIR 100 UNIT/ML X5UNITS SUBQ SCH ×2 (09:22→20:54)
[2021-06-28] MEDS: Insulin LISPRO 300 UNITS/3 ML VIAL SUBQ SCH ×6 (09:22→16:46)
[2021-06-28 16:25] LABS: Basophils % 0.3 %; Eosinophils # 0.1 K/mcL (0.0-0.6); Eosinophils % 1.1 %; Hematocrit 33.9 % (37.5-50.1); Hemoglobin 10.7 g/dL (12.9-16.9); Immature Granulocytes % 0.9 % (0-4); Lymphocytes # 1.5 K/mcL (0.6-4.6); Lymphocytes % 11.5 %; Mean Corpuscular HGB Conc 31.6 g/dL (31.6-35.5); Mean Corpuscular Hemoglobin 27.6 pg (28.0-33.3); Mean Corpuscular Volume 87.6 fL (83.0-100.0); Mean Platelet Volume 9.3 fL (9.4-12.4); Monocytes # 0.9 K/mcL (0.0-1.3); Neutrophils # 10.2 K/mcL (1.6-8.9); Platelet Count 386 K/mcL (140-400); Red Blood Count 3.87 M/mcL (4.19-5.50); Red Cell Distribution Width 14.5 % (11.5-14.5); Segmented Neutrophils % 79.2 %; White Blood Count 12.9 K/mcL (4.3-11.1)
[2021-06-28 16:45] LABS: Calcium 8.9 mg/dL (8.6-10.3); Potassium 4.3 mEq/L (3.5-5.1)
[2021-06-29] MEDS: Acetaminophen 325 MG TABLET PO PRN (00:07)
[2021-06-29 04:49] LABS: Hematocrit 32.9 % (37.5-50.1); Mean Platelet Volume 10.6 fL (9.4-12.4)
[2021-06-29 04:52] LABS: Basophils # 0.1 K/mcL (0.0-0.2); Basophils % 0.4 %; Eosinophils # 0.1 K/mcL (0.0-0.6); Hemoglobin 10.2 g/dL (12.9-16.9); Immature Granulocytes % 0.9 % (0-4); Immature Platelets 1.9 % (1.1-6.1); Lymphocytes # 1.6 K/mcL (0.6-4.6); Lymphocytes % 11.7 %; Mean Corpuscular Hemoglobin 27.6 pg (28.0-33.3); Mean Corpuscular Volume 88.9 fL (83.0-100.0); Monocytes # 1.1 K/mcL (0.0-1.3); Monocytes % 7.7 %; Neutrophils # 10.8 K/mcL (1.6-8.9); Platelet Count 357 K/mcL (140-400); Red Cell Distribution Width 14.3 % (11.5-14.5); Segmented Neutrophils % 78.3 %; White Blood Count 13.8 K/mcL (4.3-11.1)
[2021-06-29 05:04] LABS: Magnesium 1.7 mg/dL (1.6-2.6); Phosphorous 3.5 mg/dL (2.7-4.5)
[2021-06-29 05:05] LABS: Calcium 9.2 mg/dL (8.6-10.3); Potassium 4.4 mEq/L (3.5-5.1)
[2021-06-29 05:29] LABS: Platelet Estimate Normal (Normal)
[2021-06-29] MEDS: *HR* Heparin 5,000 UNIT/ML VIAL SQ SCH ×2 (06:05→17:46)
[2021-06-29] MEDS: Aspirin Enteric Coated 81 MG Tablet PO SCH (07:43)
[2021-06-29] MEDS: Insulin DETEMIR 100 UNIT/ML X5UNITS SUBQ SCH ×2 (07:44→20:33)
[2021-06-29] MEDS: carvediloL 6.25 MG TABLET PO SCH ×2 (07:44→17:45)
[2021-06-29] MEDS: Furosemide 20 MG TABLET PO SCH ×2 (07:44→17:45)
[2021-06-29] MEDS: Insulin LISPRO 300 UNITS/3 ML VIAL SUBQ SCH ×6 (07:45→17:46)
[2021-06-30] MEDS: *HR* Heparin 5,000 UNIT/ML VIAL SQ SCH ×2 (06:39→16:43)
[2021-06-30] MEDS: Acetaminophen 325 MG TABLET PO PRN (06:40)
[2021-06-30] MEDS: carvediloL 6.25 MG TABLET PO SCH ×2 (07:50→16:43)
[2021-06-30] MEDS: Furosemide 20 MG TABLET PO SCH ×2 (07:50→16:43)
[2021-06-30] MEDS: Aspirin Enteric Coated 81 MG Tablet PO SCH (07:50)
[2021-06-30] MEDS: Insulin LISPRO 300 UNITS/3 ML VIAL SUBQ SCH ×6 (07:51→16:44)
[2021-06-30] MEDS: Insulin DETEMIR 100 UNIT/ML X5UNITS SUBQ SCH (07:52)
[2021-06-30 08:05] LABS: Calcium 9.3 mg/dL (8.6-10.3); Magnesium 1.6 mg/dL (1.6-2.6); Phosphorous 4.2 mg/dL (2.7-4.5); Potassium 4.6 mEq/L (3.5-5.1)
[2021-06-30 16:05] VITALS: BP 116/64; PULSE 78; TEMP 98; O2SAT 94
== END 2021-06-30 19:29 | disposition home health service (06) | DRG 871 ==
LOC: EMEROOARM 12:20 → CDU 12:20 → SUATTDRO 19:39 → 2ANU 06-19 09:45
PROVIDERS: ADMIT Student in an Organized Health Care Education/Training Program; ATTEND Family Medicine

== ENCOUNTER 2021-11-29 16:21 | Inpatient (IN) ==
[2021-11-29 20:15] LABS: Hemoglobin 11.6 g/dL (12.9-16.9); Immature Granulocytes % 0.4 % (0-4); Mean Corpuscular Volume 83.1 fL (83.0-100.0); Red Cell Distribution Width 18.5 % (11.5-14.5)
[2021-11-29 20:16] LABS: Basophils % 0.4 %; Eosinophils # 0.1 K/mcL (0.0-0.6); Eosinophils % 0.8 %; Hematocrit 39.9 % (37.5-50.1); Lymphocytes # 1.2 K/mcL (0.6-4.6); Mean Corpuscular HGB Conc 29.1 g/dL (31.6-35.5); Mean Corpuscular Hemoglobin 24.2 pg (28.0-33.3); Mean Platelet Volume 9.9 fL (9.4-12.4); Monocytes # 0.5 K/mcL (0.0-1.3); Monocytes % 6.3 %; Platelet Count 296 K/mcL (140-400); Segmented Neutrophils % 78.1 %; White Blood Count 8.5 K/mcL (4.3-11.1)
[2021-11-29] MEDS ORDERED: Furosemide 40 MG/4 ML VIAL IVP ONE ×2 (20:16→20:30)
[2021-11-29 20:21] LABS: Neutrophils # 6.6 K/mcL (1.6-8.9)
[2021-11-29 20:34] LABS: Calcium 9.1 mg/dL (8.6-10.3); Potassium 4.6 mEq/L (3.5-5.1); Troponin I 0.07 ng/mL (< 0.04)
[2021-11-29 20:44] LABS: Influenza A PCR Negative (Negative); Influenza B PCR Negative (Negative); Resp. Syncytial Virus PCR Negative (Negative)
[2021-11-29 20:47] LABS: SARS-CoV-2 by PCR (In House) Negative (Negative)
[2021-11-29 20:49] LABS: Anisocytosis 1+ (Not Present); Hypochromasia Present (Not Present); Platelet Estimate Normal (Normal)
[2021-11-29 20:55] LABS: VBG HCO3 25 mEq/L (21-27); VBG PCO2 50 mmHg (41-51); VBG PH 7.31 pH Units (7.32-7.42); VBG PO2 36 mmHg (25-50)
[2021-11-30] MEDS ORDERED: Melatonin 3 MG TABLET PO PRN (01:51)
[2021-11-30] MEDS ORDERED: Acetaminophen 325 MG TABLET PO PRN (01:51)
[2021-11-30] MEDS ORDERED: *HR* HYDROcodone/Acet 5/325 mg TABLET PO PRN (01:51)
[2021-11-30] MEDS ORDERED: Naloxone 0.4 MG/ML INJ IVP PRN (01:51)
[2021-11-30] MEDS ORDERED: Furosemide 40 MG/4 ML VIAL IVP ONE (01:54)
[2021-11-30 02:51] LABS: Hematocrit 36.4 % (37.5-50.1); Hemoglobin 10.6 g/dL (12.9-16.9); Mean Corpuscular HGB Conc 29.1 g/dL (31.6-35.5); Mean Corpuscular Hemoglobin 24.3 pg (28.0-33.3); Mean Corpuscular Volume 83.3 fL (83.0-100.0); Mean Platelet Volume 9.7 fL (9.4-12.4); Platelet Count 279 K/mcL (140-400); Red Blood Count 4.37 M/mcL (4.19-5.50); Red Cell Distribution Width 18.3 % (11.5-14.5)
[2021-11-30 03:09] LABS: INR 1.2; Prothrombin Time 13.5 Seconds (9.4-12.1)
[2021-11-30 03:10] LABS: Magnesium 1.5 mg/dL (1.6-2.6); Phosphorous 4.1 mg/dL (2.7-4.5)
[2021-11-30 03:14] LABS: Albumin 3.1 g/dL (3.5-5.7); Albumin/Globulin Ratio 0.9 (1.1-2.2); Bilirubin,Total 0.6 mg/dL (0.3-1.0); Calcium 8.8 mg/dL (8.6-10.3); Globulin 3.4 g/dL (2.4-3.5); Potassium 4.5 mEq/L (3.5-5.1); Total Protein 6.5 g/dL (6.4-8.9)
[2021-11-30] MEDS ORDERED: D5% in Water 1,000 ML IVC PRN (06:32)
[2021-11-30] MEDS ORDERED: Dextrose Gel 15 GM/37.5 ML TUBE PO PRN ×2 (06:32)
[2021-11-30] MEDS ORDERED: *HR* Dextrose 50 % in Water (Syg) 50 ML SYRINGE IVP PRN (06:32)
[2021-11-30] MEDS ORDERED: Insulin LISPRO 300 UNITS/3 ML VIAL SUBQ SCH (07:30)
[2021-11-30] MEDS ORDERED: carvediloL 6.25 MG TABLET PO SCH (08:00)
[2021-11-30] MEDS: Albumin 25% 25gram/100mL 25 GM/100 ML IV.SOLN IVPB SCH ×2 (08:31→22:04)
[2021-11-30] MEDS: Chlorhexidine Rinse 15 ML MOUTHWASH MM SCH ×2 (08:33→20:11)
[2021-11-30] MEDS: Aspirin 81 MG TAB.CHEW PO SCH (08:33)
[2021-11-30] MEDS: Furosemide 20 MG/2 ML VIAL IVP SCH ×2 (08:35→15:59)
[2021-11-30] MEDS: Insulin LISPRO 300 UNITS/3 ML VIAL SUBQ SCH ×4 (08:35→20:12)
[2021-11-30] MEDS: Insulin DETEMIR 100 UNIT/ML X5UNITS SUBQ SCH ×2 (08:49→20:12)
[2021-11-30] MEDS ORDERED: predniSONE 20 MG TABLET PO SCH ×2 (09:00)
[2021-11-30] MEDS: Budesonide/Formoterol 160/4.5 1 PUFF INH IH SCH ×2 (10:40→20:35)
[2021-11-30] MEDS: Ipratropium/Albuterol Neb 3 ML IH SCH ×3 (10:40→20:35)
[2021-11-30] MEDS: *HR* Heparin 5,000 UNIT/ML VIAL SQ SCH ×2 (15:57→22:06)
[2021-11-30] MEDS ORDERED: Insulin DETEMIR 100 UNIT/ML X5UNITS SQ SCH (21:00)
[2021-12-01 02:35] LABS: Calcium 8.8 mg/dL (8.6-10.3); Potassium 4.5 mEq/L (3.5-5.1)
[2021-12-01] MEDS: Ipratropium/Albuterol Neb 3 ML IH SCH ×4 (03:37→19:55)
[2021-12-01] MEDS: *HR* Heparin 5,000 UNIT/ML VIAL SQ SCH ×3 (05:01→20:42)
[2021-12-01] MEDS: Insulin DETEMIR 100 UNIT/ML X5UNITS SUBQ SCH ×2 (09:47→20:41)
[2021-12-01] MEDS: Aspirin 81 MG TAB.CHEW PO SCH (09:47)
[2021-12-01] MEDS: Insulin LISPRO 300 UNITS/3 ML VIAL SUBQ SCH ×4 (09:48→20:41)
[2021-12-01] MEDS: Chlorhexidine Rinse 15 ML MOUTHWASH MM SCH ×2 (09:48→20:40)
[2021-12-01] MEDS: Albumin 25% 25gram/100mL 25 GM/100 ML IV.SOLN IVPB SCH ×2 (10:04→20:40)
[2021-12-01] MEDS: Furosemide 20 MG/2 ML VIAL IVP SCH ×2 (10:04→17:03)
[2021-12-01] MEDS: Budesonide/Formoterol 160/4.5 1 PUFF INH IH SCH ×2 (11:13→19:55)
[2021-12-01] MEDS ORDERED: carvediloL 6.25 MG TABLET PO SCH (17:00)
[2021-12-01] MEDS: Sucralfate 1 GM TABLET PO SCH (17:01)
[2021-12-01] MEDS: Nystatin Cream 15 GM TUBE TP SCH ×2 (17:01→20:41)
[2021-12-01] MEDS: carvediloL 6.25 MG TABLET PO SCH (17:01)
[2021-12-02 02:50] LABS: Mean Corpuscular Volume 85.5 fL (83.0-100.0)
[2021-12-02 02:52] LABS: Hematocrit 38.8 % (37.5-50.1); Hemoglobin 10.8 g/dL (12.9-16.9); Immature Platelets 8.2 % (1.1-6.1); Mean Corpuscular HGB Conc 27.8 g/dL (31.6-35.5); Mean Corpuscular Hemoglobin 23.8 pg (28.0-33.3); Mean Platelet Volume 11.9 fL (9.4-12.4); Red Blood Count 4.54 M/mcL (4.19-5.50); Red Cell Distribution Width 18.6 % (11.5-14.5)
[2021-12-02 03:11] LABS: Calcium 8.6 mg/dL (8.6-10.3); Magnesium 1.8 mg/dL (1.6-2.6); Potassium 4.4 mEq/L (3.5-5.1)
[2021-12-02] MEDS: Ipratropium/Albuterol Neb 3 ML IH SCH ×4 (03:38→20:06)
[2021-12-02] MEDS: *HR* Heparin 5,000 UNIT/ML VIAL SQ SCH ×3 (06:19→21:17)
[2021-12-02] MEDS: Budesonide/Formoterol 160/4.5 1 PUFF INH IH SCH ×2 (08:09→20:06)
[2021-12-02] MEDS: Sucralfate 1 GM TABLET PO SCH ×3 (08:50→16:13)
[2021-12-02] MEDS: carvediloL 6.25 MG TABLET PO SCH ×2 (08:51→17:35)
[2021-12-02] MEDS: Ezetimibe [Zetia] 10 MG Tablet PO SCH (08:51)
[2021-12-02] MEDS: Aspirin 81 MG TAB.CHEW PO SCH (08:51)
[2021-12-02] MEDS: Albumin 25% 25gram/100mL 25 GM/100 ML IV.SOLN IVPB SCH ×2 (08:52→20:40)
[2021-12-02] MEDS: Chlorhexidine Rinse 15 ML MOUTHWASH MM SCH ×2 (08:56→21:16)
[2021-12-02] MEDS: Insulin DETEMIR 100 UNIT/ML X5UNITS SUBQ SCH ×2 (08:57→21:17)
[2021-12-02] MEDS: Nystatin Cream 15 GM TUBE TP SCH ×3 (08:57→21:19)
[2021-12-02] MEDS: Insulin LISPRO 300 UNITS/3 ML VIAL SUBQ SCH ×4 (08:57→21:19)
[2021-12-02] MEDS ORDERED: Tiotropium 10 INH DOSE IH SCH (10:00)
[2021-12-02] MEDS ORDERED: Budesonide/Formoterol 160/4.5 1 PUFF INH IH SCH (10:00)
[2021-12-02] MEDS: Furosemide 20 MG/2 ML VIAL IVP SCH (10:03)
[2021-12-02] MEDS ORDERED: Albumin 25% 25gram/100mL 25 GM/100 ML IV.SOLN IVPB ONE (15:47)
[2021-12-02] MEDS ORDERED: Furosemide 40 MG/4 ML VIAL IVP ONE (15:48)
[2021-12-02] MEDS ORDERED: metOLazone 2.5 MG TABLET PO SCH (16:00)
[2021-12-03 02:44] LABS: Calcium 8.7 mg/dL (8.6-10.3); Potassium 3.4 mEq/L (3.5-5.1)
[2021-12-03] MEDS: Ipratropium/Albuterol Neb 3 ML IH SCH ×4 (04:24→19:26)
[2021-12-03] MEDS: *HR* Heparin 5,000 UNIT/ML VIAL SQ SCH ×3 (05:56→20:37)
[2021-12-03] MEDS: Nystatin Cream 15 GM TUBE TP SCH ×3 (07:39→20:37)
[2021-12-03] MEDS: Sucralfate 1 GM TABLET PO SCH ×3 (07:39→17:02)
[2021-12-03] MEDS: carvediloL 6.25 MG TABLET PO SCH ×2 (07:39→17:02)
[2021-12-03] MEDS: Aspirin 81 MG TAB.CHEW PO SCH (07:39)
[2021-12-03] MEDS: Chlorhexidine Rinse 15 ML MOUTHWASH MM SCH ×2 (07:39→20:37)
[2021-12-03] MEDS: Ezetimibe [Zetia] 10 MG Tablet PO SCH (07:40)
[2021-12-03] MEDS: Albumin 25% 25gram/100mL 25 GM/100 ML IV.SOLN IVPB SCH (07:40)
[2021-12-03] MEDS: Insulin DETEMIR 100 UNIT/ML X5UNITS SUBQ SCH ×2 (07:44→20:38)
[2021-12-03] MEDS: Insulin LISPRO 300 UNITS/3 ML VIAL SUBQ SCH ×4 (07:49→20:38)
[2021-12-03] MEDS: Budesonide/Formoterol 160/4.5 1 PUFF INH IH SCH ×2 (08:40→19:26)
[2021-12-03 10:13] LABS: Bilirubin,Urine Negative (Negative); Blood,Urine Negative (Negative); Clarity,Urine Clear (Clear); Color,Urine Light-Yellow (Yellow); Glucose,Urine (UA) Normal (Normal); Granular Casts,Urine Few per lpf (None Seen); Hyaline Casts,Urine Few per lpf (None Seen); Ketones,Urine Negative (Negative); Leukocyte Esterase,Urine Negative (Negative); Mucus,Urine Few per lpf (None-Few); Nitrite,Urine Negative (Negative); Protein,Urine 200 mg/dL (Neg-Trace); RBC,Urine 0-3 per hpf (0-3); Specific Gravity,Urine 1.011 (1.010-1.025); Squamous Epithelial Cell,Urine Few per hpf (None-Few); Transitional Epi Cells,Urine Few per hpf (None-Few); Urobilinogen,Urine Normal (Normal)
[2021-12-03 11:02] LABS: Sodium, Urine 82.3 mEq/L
[2021-12-04] MEDS: Ipratropium/Albuterol Neb 3 ML IH SCH ×4 (03:52→20:04)
[2021-12-04] MEDS: *HR* Heparin 5,000 UNIT/ML VIAL SQ SCH ×3 (04:56→21:29)
[2021-12-04 07:48] LABS: Calcium 9.2 mg/dL (8.6-10.3); Potassium 3.9 mEq/L (3.5-5.1)
[2021-12-04] MEDS: Budesonide/Formoterol 160/4.5 1 PUFF INH IH SCH ×2 (08:19→20:05)
[2021-12-04] MEDS: Chlorhexidine Rinse 15 ML MOUTHWASH MM SCH ×2 (08:40→21:28)
[2021-12-04] MEDS: Insulin DETEMIR 100 UNIT/ML X5UNITS SUBQ SCH ×2 (08:41→21:29)
[2021-12-04] MEDS: carvediloL 6.25 MG TABLET PO SCH ×2 (08:41→17:44)
[2021-12-04] MEDS: Aspirin 81 MG TAB.CHEW PO SCH (08:41)
[2021-12-04] MEDS: Sucralfate 1 GM TABLET PO SCH ×3 (08:41→17:44)
[2021-12-04] MEDS: Insulin LISPRO 300 UNITS/3 ML VIAL SUBQ SCH ×4 (08:42→21:28)
[2021-12-04] MEDS: Ezetimibe [Zetia] 10 MG Tablet PO SCH (08:42)
[2021-12-04] MEDS: Nystatin Cream 15 GM TUBE TP SCH ×3 (08:42→21:28)
[2021-12-04] MEDS ORDERED: Furosemide 20 MG/2 ML VIAL IVP ONE (09:41)
[2021-12-05] MEDS: Ipratropium/Albuterol Neb 3 ML IH SCH ×4 (03:22→23:15)
[2021-12-05 04:31] LABS: Hematocrit 34.2 % (37.5-50.1); Hemoglobin 9.9 g/dL (12.9-16.9); Mean Corpuscular HGB Conc 28.9 g/dL (31.6-35.5); Mean Corpuscular Hemoglobin 24.3 pg (28.0-33.3); Mean Corpuscular Volume 83.8 fL (83.0-100.0); Mean Platelet Volume 10.5 fL (9.4-12.4); Platelet Count 238 K/mcL (140-400); Red Blood Count 4.08 M/mcL (4.19-5.50); Red Cell Distribution Width 18.1 % (11.5-14.5); White Blood Count 8.1 K/mcL (4.3-11.1)
[2021-12-05] MEDS: *HR* Heparin 5,000 UNIT/ML VIAL SQ SCH ×3 (05:25→21:35)
[2021-12-05] MEDS: Insulin LISPRO 300 UNITS/3 ML VIAL SUBQ SCH ×4 (08:00→21:34)
[2021-12-05] MEDS: Nystatin Cream 15 GM TUBE TP SCH ×3 (08:46→21:34)
[2021-12-05] MEDS: Sucralfate 1 GM TABLET PO SCH ×3 (08:47→17:33)
[2021-12-05] MEDS: carvediloL 6.25 MG TABLET PO SCH ×2 (08:47→17:33)
[2021-12-05] MEDS: Chlorhexidine Rinse 15 ML MOUTHWASH MM SCH ×2 (08:47→21:33)
[2021-12-05] MEDS: Insulin DETEMIR 100 UNIT/ML X5UNITS SUBQ SCH ×2 (08:47→21:34)
[2021-12-05] MEDS: Aspirin 81 MG TAB.CHEW PO SCH (08:48)
[2021-12-05] MEDS: Budesonide/Formoterol 160/4.5 1 PUFF INH IH SCH ×2 (10:21→23:15)
[2021-12-05] MEDS ORDERED: Albumin 25% 25gram/100mL 25 GM/100 ML IV.SOLN IVPB ONE (15:09)
[2021-12-05] MEDS ORDERED: Furosemide 20 MG/2 ML VIAL IVP ONE (17:00)
[2021-12-05] MEDS: Azithromycin 500 MG in 0.9 % Sodium Chloride 250 ML IVPB SCH (17:30)
[2021-12-05] MEDS: cefTRIAXone 1,000 MG in 0.9 % Sodium Chloride Mini Bag 100 ML IVPB SCH (17:31)
[2021-12-06] MEDS: Ipratropium/Albuterol Neb 3 ML IH SCH ×4 (04:06→20:52)
[2021-12-06 04:44] LABS: Hematocrit 34.7 % (37.5-50.1); Hemoglobin 10.1 g/dL (12.9-16.9); Mean Corpuscular HGB Conc 29.1 g/dL (31.6-35.5); Mean Corpuscular Hemoglobin 24.2 pg (28.0-33.3); Mean Corpuscular Volume 83.2 fL (83.0-100.0); Platelet Count 250 K/mcL (140-400); Red Blood Count 4.17 M/mcL (4.19-5.50); Red Cell Distribution Width 18.1 % (11.5-14.5); White Blood Count 9.1 K/mcL (4.3-11.1)
[2021-12-06 05:08] LABS: Calcium 8.8 mg/dL (8.6-10.3); Magnesium 1.7 mg/dL (1.6-2.6); Potassium 3.6 mEq/L (3.5-5.1)
[2021-12-06] MEDS: *HR* Heparin 5,000 UNIT/ML VIAL SQ SCH ×3 (05:33→21:23)
[2021-12-06] MEDS ORDERED: NON-FORMULARY MEDICATION 1 EACH EACH (Fluticasone Propion/Salmeterol [Wixela 250-50 Inhub] IH SCH (09:00)
[2021-12-06] MEDS: Insulin LISPRO 300 UNITS/3 ML VIAL SUBQ SCH ×4 (10:07→21:22)
[2021-12-06] MEDS: Budesonide/Formoterol 160/4.5 1 PUFF INH IH SCH ×2 (10:16→20:53)
[2021-12-06] MEDS: Albumin 25% 25gram/100mL 25 GM/100 ML IV.SOLN IVPB SCH ×2 (10:19→21:22)
[2021-12-06] MEDS: carvediloL 6.25 MG TABLET PO SCH ×2 (10:20→16:12)
[2021-12-06] MEDS: Chlorhexidine Rinse 15 ML MOUTHWASH MM SCH ×2 (10:20→21:22)
[2021-12-06] MEDS: Aspirin 81 MG TAB.CHEW PO SCH (10:20)
[2021-12-06] MEDS: Nystatin Cream 15 GM TUBE TP SCH ×3 (10:21→21:20)
[2021-12-06] MEDS: ACETYLCYSTEINE 600 MG PO SCH (10:21)
[2021-12-06] MEDS: cefTRIAXone 1,000 MG in 0.9 % Sodium Chloride Mini Bag 100 ML IVPB SCH (11:15)
[2021-12-06] MEDS: Insulin DETEMIR 100 UNIT/ML X5UNITS SUBQ SCH ×2 (11:16→21:23)
[2021-12-06] MEDS: Sucralfate 1 GM TABLET PO SCH ×3 (11:49→16:12)
[2021-12-06] MEDS: Furosemide 20 MG/2 ML VIAL IVP SCH (13:26)
[2021-12-06] MEDS: Azithromycin 500 MG in 0.9 % Sodium Chloride 250 ML IVPB SCH (16:12)
[2021-12-07] MEDS: Furosemide 20 MG/2 ML VIAL IVP SCH (00:10)
[2021-12-07] MEDS: Ipratropium/Albuterol Neb 3 ML IH SCH ×4 (03:06→20:04)
[2021-12-07] MEDS: *HR* Heparin 5,000 UNIT/ML VIAL SQ SCH ×3 (05:29→20:22)
[2021-12-07 06:55] LABS: Basophils % 0.3 %; Immature Granulocytes % 0.4 % (0-4); Monocytes % 8.8 %; Segmented Neutrophils % 71.1 %
[2021-12-07 06:57] LABS: Eosinophils # 0.1 K/mcL (0.0-0.6); Eosinophils % 1.7 %; Hemoglobin 9.7 g/dL (12.9-16.9); Lymphocytes # 1.4 K/mcL (0.6-4.6); Lymphocytes % 17.7 %; Mean Corpuscular HGB Conc 29.4 g/dL (31.6-35.5); Mean Corpuscular Hemoglobin 24.4 pg (28.0-33.3); Mean Corpuscular Volume 82.9 fL (83.0-100.0); Monocytes # 0.7 K/mcL (0.0-1.3); Neutrophils # 5.6 K/mcL (1.6-8.9); Platelet Count 236 K/mcL (140-400); Red Blood Count 3.98 M/mcL (4.19-5.50); Red Cell Distribution Width 17.9 % (11.5-14.5); White Blood Count 7.9 K/mcL (4.3-11.1)
[2021-12-07 07:13] LABS: Calcium 9.2 mg/dL (8.6-10.3); Magnesium 1.7 mg/dL (1.6-2.6); Phosphorous 4.1 mg/dL (2.7-4.5); Potassium 3.6 mEq/L (3.5-5.1)
[2021-12-07] MEDS: Budesonide/Formoterol 160/4.5 1 PUFF INH IH SCH ×2 (07:30→20:04)
[2021-12-07 07:42] LABS: Anisocytosis 1+ (Not Present); Hypochromasia Present (Not Present); Large Platelets Present (Not Present); Platelet Estimate Normal (Normal)
[2021-12-07] MEDS: Sucralfate 1 GM TABLET PO SCH ×3 (08:51→17:16)
[2021-12-07] MEDS: Aspirin 81 MG TAB.CHEW PO SCH (08:51)
[2021-12-07] MEDS: carvediloL 6.25 MG TABLET PO SCH ×2 (08:52→17:17)
[2021-12-07] MEDS: Chlorhexidine Rinse 15 ML MOUTHWASH MM SCH ×2 (08:53→20:21)
[2021-12-07] MEDS: cefTRIAXone 1,000 MG in 0.9 % Sodium Chloride Mini Bag 100 ML IVPB SCH (08:53)
[2021-12-07] MEDS: Albumin 25% 25gram/100mL 25 GM/100 ML IV.SOLN IVPB SCH ×2 (08:56→20:20)
[2021-12-07] MEDS: Insulin LISPRO 300 UNITS/3 ML VIAL SUBQ SCH ×4 (08:57→20:21)
[2021-12-07] MEDS: ACETYLCYSTEINE 600 MG PO SCH (09:04)
[2021-12-07] MEDS: Nystatin Cream 15 GM TUBE TP SCH ×3 (09:06→20:22)
[2021-12-07] MEDS: Insulin DETEMIR 100 UNIT/ML X5UNITS SUBQ SCH ×2 (09:06→20:22)
[2021-12-07] MEDS: Azithromycin 500 MG in 0.9 % Sodium Chloride 250 ML IVPB SCH (14:14)
[2021-12-08 03:31] LABS: Hemoglobin 9.9 g/dL (12.9-16.9)
[2021-12-08 03:33] LABS: Basophils % 0.2 %; Eosinophils # 0.1 K/mcL (0.0-0.6); Eosinophils % 1.7 %; Hematocrit 35.2 % (37.5-50.1); Immature Granulocytes % 0.4 % (0-4); Lymphocytes # 1.3 K/mcL (0.6-4.6); Lymphocytes % 15.7 %; Mean Corpuscular HGB Conc 28.1 g/dL (31.6-35.5); Mean Corpuscular Hemoglobin 23.6 pg (28.0-33.3); Mean Platelet Volume 10.7 fL (9.4-12.4); Monocytes # 0.7 K/mcL (0.0-1.3); Monocytes % 8.3 %; Neutrophils # 6.2 K/mcL (1.6-8.9); Platelet Count 235 K/mcL (140-400); Red Blood Count 4.19 M/mcL (4.19-5.50); Segmented Neutrophils % 73.7 %; White Blood Count 8.4 K/mcL (4.3-11.1)
[2021-12-08] MEDS: Ipratropium/Albuterol Neb 3 ML IH SCH ×4 (03:44→20:38)
[2021-12-08 03:57] LABS: Calcium 9.2 mg/dL (8.6-10.3); Magnesium 1.7 mg/dL (1.6-2.6); Phosphorous 3.5 mg/dL (2.7-4.5); Potassium 3.8 mEq/L (3.5-5.1)
[2021-12-08 04:11] LABS: Anisocytosis 1+ (Not Present); Macrocytosis Present (Not Present); Platelet Estimate Normal (Normal)
[2021-12-08] MEDS: *HR* Heparin 5,000 UNIT/ML VIAL SQ SCH ×3 (04:57→21:24)
[2021-12-08] MEDS: Aspirin 81 MG TAB.CHEW PO SCH (09:47)
[2021-12-08] MEDS: *HR* Acetylcysteine 20% 600 MG/3 ML ORAL SYRINGE PO SCH (09:47)
[2021-12-08] MEDS: cefTRIAXone 1,000 MG in 0.9 % Sodium Chloride Mini Bag 100 ML IVPB SCH (09:47)
[2021-12-08] MEDS: Chlorhexidine Rinse 15 ML MOUTHWASH MM SCH ×2 (09:47→21:24)
[2021-12-08] MEDS: Insulin LISPRO 300 UNITS/3 ML VIAL SUBQ SCH ×4 (09:47→21:51)
[2021-12-08] MEDS: Nystatin Cream 15 GM TUBE TP SCH ×3 (09:48→22:04)
[2021-12-08] MEDS: Sucralfate 1 GM TABLET PO SCH ×3 (09:51→17:51)
[2021-12-08] MEDS: carvediloL 6.25 MG TABLET PO SCH ×2 (09:51→17:51)
[2021-12-08] MEDS: Insulin DETEMIR 100 UNIT/ML X5UNITS SUBQ SCH ×3 (09:59→21:51)
[2021-12-08] MEDS: Budesonide/Formoterol 160/4.5 1 PUFF INH IH SCH ×2 (10:55→20:38)
[2021-12-09 01:20] LABS: Basophils % 0.3 %; Eosinophils % 2.4 %; Immature Granulocytes % 0.4 % (0-4); Red Cell Distribution Width 17.7 % (11.5-14.5)
[2021-12-09 01:21] LABS: Eosinophils # 0.2 K/mcL (0.0-0.6); Hematocrit 34.6 % (37.5-50.1); Mean Corpuscular HGB Conc 28.9 g/dL (31.6-35.5); Mean Platelet Volume 10.4 fL (9.4-12.4); Monocytes # 0.7 K/mcL (0.0-1.3); Monocytes % 8.5 %; Platelet Count 257 K/mcL (140-400); Red Blood Count 4.17 M/mcL (4.19-5.50); Segmented Neutrophils % 75.4 %
[2021-12-09 01:36] LABS: Magnesium 1.7 mg/dL (1.6-2.6); Phosphorous 3.2 mg/dL (2.7-4.5); Potassium 3.5 mEq/L (3.5-5.1)
[2021-12-09] MEDS: Ipratropium/Albuterol Neb 3 ML IH SCH ×4 (02:35→19:46)
[2021-12-09 03:08] LABS: Hypochromasia Present (Not Present); Platelet Estimate Normal (Normal)
[2021-12-09] MEDS: *HR* Heparin 5,000 UNIT/ML VIAL SQ SCH ×3 (05:51→21:46)
[2021-12-09] MEDS: Insulin LISPRO 300 UNITS/3 ML VIAL SUBQ SCH ×4 (07:59→21:42)
[2021-12-09] MEDS: Budesonide/Formoterol 160/4.5 1 PUFF INH IH SCH ×2 (08:08→19:47)
[2021-12-09] MEDS: Sucralfate 1 GM TABLET PO SCH ×3 (09:16→17:10)
[2021-12-09] MEDS: Chlorhexidine Rinse 15 ML MOUTHWASH MM SCH ×2 (09:16→21:42)
[2021-12-09] MEDS: *HR* Acetylcysteine 20% 600 MG/3 ML ORAL SYRINGE PO SCH (09:16)
[2021-12-09] MEDS: Aspirin 81 MG TAB.CHEW PO SCH (09:17)
[2021-12-09] MEDS: Nystatin Cream 15 GM TUBE TP SCH ×3 (09:17→21:45)
[2021-12-09] MEDS: cefTRIAXone 1,000 MG in 0.9 % Sodium Chloride Mini Bag 100 ML IVPB SCH (09:17)
[2021-12-09] MEDS: carvediloL 6.25 MG TABLET PO SCH ×2 (09:17→17:09)
[2021-12-09] MEDS: Insulin DETEMIR 100 UNIT/ML X5UNITS SUBQ SCH ×2 (09:20→21:42)
[2021-12-09] MEDS ORDERED: Albumin 25% 25gram/100mL 25 GM/100 ML IV.SOLN IVPB SCH (10:30)
[2021-12-09] MEDS: Furosemide 20 MG TABLET PO SCH ×2 (11:48→17:10)
[2021-12-10 02:50] LABS: Magnesium 1.7 mg/dL (1.6-2.6); Phosphorous 3.2 mg/dL (2.7-4.5); Potassium 3.7 mEq/L (3.5-5.1)
[2021-12-10] MEDS: Ipratropium/Albuterol Neb 3 ML IH SCH ×3 (03:46→16:24)
[2021-12-10] MEDS: *HR* Heparin 5,000 UNIT/ML VIAL SQ SCH ×2 (04:36→16:15)
[2021-12-10] MEDS: carvediloL 6.25 MG TABLET PO SCH ×2 (08:33→16:16)
[2021-12-10] MEDS: Sucralfate 1 GM TABLET PO SCH ×3 (08:33→16:16)
[2021-12-10] MEDS: *HR* Acetylcysteine 20% 600 MG/3 ML ORAL SYRINGE PO SCH (08:33)
[2021-12-10] MEDS: Chlorhexidine Rinse 15 ML MOUTHWASH MM SCH (08:33)
[2021-12-10] MEDS: Aspirin 81 MG TAB.CHEW PO SCH (08:33)
[2021-12-10] MEDS: Insulin DETEMIR 100 UNIT/ML X5UNITS SUBQ SCH (08:33)
[2021-12-10] MEDS: Furosemide 20 MG TABLET PO SCH ×2 (08:33→16:16)
[2021-12-10] MEDS: Nystatin Cream 15 GM TUBE TP SCH ×2 (08:34→16:13)
[2021-12-10] MEDS: Insulin LISPRO 300 UNITS/3 ML VIAL SUBQ SCH ×3 (08:34→17:47)
[2021-12-10] MEDS: Budesonide/Formoterol 160/4.5 1 PUFF INH IH SCH (10:40)
[2021-12-10 14:59] VITALS: BP 138/70; PULSE 83; TEMP 97.7; O2SAT 93
== END 2021-12-10 19:00 | disposition home health service (06) | DRG 280 ==
LOC: 3BNU 16:21 → EMEROOARM 16:21 → SUATTDRO 22:12 → 3BNU 22:50 → SUATTDRO 12-01 15:46
PROVIDERS: ADMIT Internal Medicine; ATTEND Internal Medicine

== ENCOUNTER 2022-01-28 10:31 | Inpatient (IN) ==
[2022-01-28] MEDS ORDERED: Ipratropium/Albuterol Neb 3 ML IH ONE (11:03)
[2022-01-28] MEDS ORDERED: methylPREDNISolone 125 MG/2 ML VIAL IVP ONE (11:03)
[2022-01-28 12:21] LABS: Basophils % 0.4 %; Red Cell Distribution Width 17.3 % (11.5-14.5); Segmented Neutrophils % 81.6 %
[2022-01-28 12:23] LABS: Eosinophils # 0.1 K/mcL (0.0-0.6); Eosinophils % 0.9 %; Hemoglobin 11.6 g/dL (12.9-16.9); Immature Granulocytes % 0.5 % (0-4); Lymphocytes # 0.8 K/mcL (0.6-4.6); Lymphocytes % 10.1 %; Mean Corpuscular Hemoglobin 25.1 pg (28.0-33.3); Mean Corpuscular Volume 86.6 fL (83.0-100.0); Mean Platelet Volume 10.8 fL (9.4-12.4); Monocytes # 0.5 K/mcL (0.0-1.3); Monocytes % 6.5 %; Neutrophils # 6.7 K/mcL (1.6-8.9); Platelet Count 306 K/mcL (140-400); Red Blood Count 4.62 M/mcL (4.19-5.50); White Blood Count 8.2 K/mcL (4.3-11.1)
[2022-01-28 12:34] LABS: Influenza A PCR Negative (Negative); Influenza B PCR Negative (Negative); Resp. Syncytial Virus PCR Negative (Negative); SARS-CoV-2 by PCR (In House) Negative (Negative)
[2022-01-28 12:54] LABS: Albumin 3.4 g/dL (3.5-5.7); Albumin/Globulin Ratio 0.8 (1.1-2.2); Bilirubin,Direct 0.1 mg/dL (0.0-0.2); Bilirubin,Indirect 0.6 mg/dL (0.0-1.0); Bilirubin,Total 0.7 mg/dL (0.3-1.0); Calcium 9.6 mg/dL (8.6-10.3); Globulin 4.1 g/dL (2.4-3.5); Potassium 4.1 mEq/L (3.5-5.1); Total Protein 7.5 g/dL (6.4-8.9); Troponin I 0.05 ng/mL (< 0.04)
[2022-01-28 13:01] LABS: Platelet Estimate Normal (Normal)
[2022-01-28 13:02] LABS: Anisocytosis 1+ (Not Present)
[2022-01-28] MEDS ORDERED: Insulin Human Regular 5 UNIT in 0.9 % Sodium Chloride 10 ML IV ONE (13:55)
[2022-01-28] MEDS ORDERED: Furosemide 40 MG/4 ML VIAL IVP ONE (15:13)
[2022-01-28] MEDS ORDERED: Naloxone 0.4 MG/ML INJ IVP PRN (16:48)
[2022-01-28] MEDS ORDERED: Ondansetron 4 MG/2 ML VIAL IVP PRN (16:48)
[2022-01-28] MEDS ORDERED: Acetaminophen 325 MG TABLET PO PRN (16:48)
[2022-01-28] MEDS ORDERED: Saliva Stimulant 44.3ml BOTTLE PO PRN (18:58)
[2022-01-28] MEDS ORDERED: *HR* Dextrose 50 % in Water (Syg) 50 ML SYRINGE IVP PRN (19:03)
[2022-01-28] MEDS ORDERED: Dextrose 4 GM Chewable Tablets PO PRN ×2 (19:03)
[2022-01-28] MEDS ORDERED: D5% in Water 1,000 ML IVC PRN (19:03)
[2022-01-28] MEDS ORDERED: Nystatin Cream 15 GM TUBE TP PRN (19:05)
[2022-01-28] MEDS ORDERED: Furosemide 40 MG/4 ML VIAL IVP SCH (19:30)
[2022-01-28] MEDS ORDERED: Albumin 25% 25gram/100mL 25 GM/100 ML IV.SOLN IVPB ONE (19:30)
[2022-01-28] MEDS: Budesonide/Formoterol 160/4.5 1 PUFF INH IH SCH (19:46)
[2022-01-28] MEDS: Ipratropium/Albuterol Neb 3 ML IH SCH ×2 (19:46→23:48)
[2022-01-28] MEDS ORDERED: Artificial Tears SOLN 15 ML BOTTLE BOTH EYES SCH (20:00)
[2022-01-28] MEDS ORDERED: Saline Nasal Spray 44 ML BOTTLE NS SCH (20:00)
[2022-01-28] MEDS ORDERED: Insulin DETEMIR 100 UNIT/ML X5UNITS SUBQ SCH ×2 (21:00)
[2022-01-28] MEDS ORDERED: Chlorhexidine Rinse 15 ML MOUTHWASH MM SCH (21:00)
[2022-01-28] MEDS: Furosemide 40 MG/4 ML VIAL IVP SCH (21:51)
[2022-01-28] MEDS: Nystatin POWDER 30 GM BOTTLE TP SCH (21:51)
[2022-01-28] MEDS: *HR* Heparin 5,000 UNIT/ML VIAL SQ SCH (21:54)
[2022-01-28 22:20] LABS: Estimated Average Glucose 212 mg/dl
[2022-01-28] MEDS: Insulin LISPRO 300 UNITS/3 ML VIAL SUBQ SCH (23:10)
[2022-01-28] MEDS: MethylPREDNISolone 40 MG/ML VIAL IVP SCH (23:40)
[2022-01-28] MEDS ORDERED: Insulin DETEMIR 100 UNIT/ML X5UNITS SUBQ ONE (23:57)
[2022-01-29] MEDS ORDERED: Insulin LISPRO 300 UNITS/3 ML VIAL SUBQ ONE ×2 (01:37→04:45)
[2022-01-29] MEDS: Ipratropium/Albuterol Neb 3 ML IH SCH ×6 (03:14→23:57)
[2022-01-29] MEDS: *HR* Heparin 5,000 UNIT/ML VIAL SQ SCH ×3 (05:33→21:49)
[2022-01-29] MEDS ORDERED: Albumin 25% 25gram/100mL 25 GM/100 ML IV.SOLN IVPB SCH (07:00)
[2022-01-29 07:07] LABS: Hematocrit 37.1 % (37.5-50.1); Hemoglobin 11.1 g/dL (12.9-16.9); Immature Granulocytes % 0.2 % (0-4); Lymphocytes # 0.3 K/mcL (0.6-4.6); Lymphocytes % 7.8 %; Mean Corpuscular HGB Conc 29.9 g/dL (31.6-35.5); Mean Corpuscular Hemoglobin 25.3 pg (28.0-33.3); Mean Corpuscular Volume 84.7 fL (83.0-100.0); Mean Platelet Volume 10.9 fL (9.4-12.4); Monocytes # 0.1 K/mcL (0.0-1.3); Monocytes % 1.4 %; Neutrophils # 3.8 K/mcL (1.6-8.9); Platelet Count 277 K/mcL (140-400); Red Blood Count 4.38 M/mcL (4.19-5.50); Red Cell Distribution Width 17.1 % (11.5-14.5); Segmented Neutrophils % 90.6 %; White Blood Count 4.2 K/mcL (4.3-11.1)
[2022-01-29 07:14] LABS: INR 1.2; Prothrombin Time 13.2 Seconds (9.4-12.1)
[2022-01-29 07:17] LABS: Activated Partial Thrombo Time 31.2 Seconds (26.0-36.0)
[2022-01-29] MEDS: Budesonide/Formoterol 160/4.5 1 PUFF INH IH SCH (07:19)
[2022-01-29] MEDS ORDERED: Insulin LISPRO 300 UNITS/3 ML VIAL SUBQ SCH ×2 (07:30→08:00)
[2022-01-29 07:39] LABS: Calcium 9.1 mg/dL (8.6-10.3); Magnesium 1.5 mg/dL (1.6-2.6); Phosphorous 3.4 mg/dL (2.7-4.5); Potassium 4.1 mEq/L (3.5-5.1)
[2022-01-29] MEDS: Albumin 25% 25gram/100mL 25 GM/100 ML IV.SOLN IVPB SCH ×3 (08:13→19:41)
[2022-01-29] MEDS: Insulin LISPRO 300 UNITS/3 ML VIAL SUBQ SCH ×7 (08:14→22:35)
[2022-01-29] MEDS: carvediloL 6.25 MG TABLET PO SCH ×2 (08:15→16:43)
[2022-01-29] MEDS: Multivit/Ca/Min/Fe/FA 1 TAB TABLET PO SCH (08:15)
[2022-01-29] MEDS: Sucralfate 1 GM TABLET PO SCH ×3 (08:15→16:43)
[2022-01-29] MEDS: MethylPREDNISolone 40 MG/ML VIAL IVP SCH (08:15)
[2022-01-29] MEDS: Aspirin 81 MG TAB.CHEW PO SCH (08:15)
[2022-01-29] MEDS: Nystatin POWDER 30 GM BOTTLE TP SCH ×3 (08:15→22:35)
[2022-01-29] MEDS: Budesonide/Formoterol 80/4.5 1 PUFF INH IH SCH ×2 (08:55→20:41)
[2022-01-29] MEDS ORDERED: Furosemide 40 MG/4 ML VIAL IVP SCH (09:00)
[2022-01-29] MEDS: Furosemide 40 MG/4 ML VIAL IVP SCH ×2 (10:02→21:50)
[2022-01-29] MEDS ORDERED: Furosemide 40 MG/4 ML VIAL IVP ONE (20:55)
[2022-01-29] MEDS: Insulin DETEMIR 100 UNIT/ML X5UNITS SUBQ SCH (21:41)
[2022-01-30 01:40] LABS: Hemoglobin 10.5 g/dL (12.9-16.9); Mean Corpuscular HGB Conc 29.2 g/dL (31.6-35.5); Mean Corpuscular Hemoglobin 24.4 pg (28.0-33.3); Mean Corpuscular Volume 83.5 fL (83.0-100.0); Platelet Count 301 K/mcL (140-400); Red Blood Count 4.31 M/mcL (4.19-5.50); Red Cell Distribution Width 17.2 % (11.5-14.5)
[2022-01-30 01:41] LABS: White Blood Count 12.3 K/mcL (4.3-11.1)
[2022-01-30 02:05] LABS: Calcium 8.9 mg/dL (8.6-10.3); Potassium 4.5 mEq/L (3.5-5.1)
[2022-01-30] MEDS: Ipratropium/Albuterol Neb 3 ML IH SCH ×5 (04:11→21:08)
[2022-01-30] MEDS: *HR* Heparin 5,000 UNIT/ML VIAL SQ SCH ×3 (05:35→21:22)
[2022-01-30] MEDS: Albumin 25% 25gram/100mL 25 GM/100 ML IV.SOLN IVPB SCH ×2 (07:28→19:26)
[2022-01-30] MEDS: Sucralfate 1 GM TABLET PO SCH ×3 (07:28→17:26)
[2022-01-30] MEDS: Multivit/Ca/Min/Fe/FA 1 TAB TABLET PO SCH (07:28)
[2022-01-30] MEDS: carvediloL 6.25 MG TABLET PO SCH ×2 (07:28→17:26)
[2022-01-30] MEDS: Aspirin 81 MG TAB.CHEW PO SCH (07:28)
[2022-01-30] MEDS: Nystatin POWDER 30 GM BOTTLE TP SCH ×3 (07:28→21:23)
[2022-01-30] MEDS: Insulin LISPRO 300 UNITS/3 ML VIAL SUBQ SCH ×7 (07:29→21:40)
[2022-01-30] MEDS: Budesonide/Formoterol 80/4.5 1 PUFF INH IH SCH ×2 (07:42→21:09)
[2022-01-30] MEDS: Furosemide 40 MG/4 ML VIAL IVP SCH ×2 (09:47→21:23)
[2022-01-30 16:23] LABS: Bilirubin,Urine Negative (Negative); Blood,Urine Small (Negative); Clarity,Urine Clear (Clear); Color,Urine Yellow (Yellow); Glucose,Urine (UA) Normal (Normal); Hyaline Casts,Urine Many per lpf (None Seen); Ketones,Urine Negative (Negative); Leukocyte Esterase,Urine Negative (Negative); Mucus,Urine Few per lpf (None-Few); Nitrite,Urine Negative (Negative); Protein,Urine >=300 mg/dL (Neg-Trace); Specific Gravity,Urine 1.016 (1.010-1.025); Squamous Epithelial Cell,Urine Few per hpf (None-Few); Urobilinogen,Urine Normal (Normal)
[2022-01-30 16:34] LABS: Creatinine,Urine 53 mg/dL; Microalbumin,Urine > 1350 mg/L; Protein/Creatinine Ratio,Urine 8.66 mg/mg (0.00-0.20)
[2022-01-30] MEDS: Insulin DETEMIR 100 UNIT/ML X5UNITS SUBQ SCH (21:22)
[2022-01-31] MEDS: *HR* Heparin 5,000 UNIT/ML VIAL SQ SCH ×3 (04:12→20:46)
[2022-01-31] MEDS: Ipratropium/Albuterol Neb 3 ML IH SCH ×7 (04:25→23:22)
[2022-01-31 05:15] LABS: Hematocrit 39.2 % (37.5-50.1); Hemoglobin 11.5 g/dL (12.9-16.9); Mean Corpuscular HGB Conc 29.3 g/dL (31.6-35.5); Mean Corpuscular Hemoglobin 25.1 pg (28.0-33.3); Mean Corpuscular Volume 85.4 fL (83.0-100.0); Mean Platelet Volume 10.8 fL (9.4-12.4); Platelet Count 305 K/mcL (140-400); Red Blood Count 4.59 M/mcL (4.19-5.50); Red Cell Distribution Width 17.2 % (11.5-14.5); White Blood Count 10.6 K/mcL (4.3-11.1)
[2022-01-31 05:36] LABS: Calcium 9.2 mg/dL (8.6-10.3); Magnesium 1.7 mg/dL (1.6-2.6); Potassium 3.8 mEq/L (3.5-5.1)
[2022-01-31] MEDS: Budesonide/Formoterol 80/4.5 1 PUFF INH IH SCH ×2 (07:34→20:40)
[2022-01-31] MEDS: carvediloL 6.25 MG TABLET PO SCH ×2 (09:04→16:53)
[2022-01-31] MEDS: Aspirin 81 MG TAB.CHEW PO SCH (09:04)
[2022-01-31] MEDS: Multivit/Ca/Min/Fe/FA 1 TAB TABLET PO SCH (09:04)
[2022-01-31] MEDS: Furosemide 40 MG/4 ML VIAL IVP SCH (09:04)
[2022-01-31] MEDS: Albumin 25% 25gram/100mL 25 GM/100 ML IV.SOLN IVPB SCH ×3 (09:05→18:35)
[2022-01-31] MEDS: Nystatin POWDER 30 GM BOTTLE TP SCH ×4 (09:06→20:49)
[2022-01-31] MEDS: Insulin LISPRO 300 UNITS/3 ML VIAL SUBQ SCH ×7 (09:08→19:57)
[2022-01-31] MEDS: Sucralfate 1 GM TABLET PO SCH ×3 (09:16→16:52)
[2022-01-31] MEDS: Insulin DETEMIR 100 UNIT/ML X5UNITS SUBQ SCH (20:38)
[2022-02-01 02:25] LABS: Calcium 9.3 mg/dL (8.6-10.3); Potassium 4.2 mEq/L (3.5-5.1)
[2022-02-01 02:58] LABS: Basophils % 0.2 %; Eosinophils # 0.1 K/mcL (0.0-0.6); Eosinophils % 1.1 %; Hemoglobin 11.4 g/dL (12.9-16.9); Immature Granulocytes % 0.6 % (0-4); Lymphocytes # 1.3 K/mcL (0.6-4.6); Lymphocytes % 14.6 %; Mean Corpuscular HGB Conc 29.2 g/dL (31.6-35.5); Mean Corpuscular Hemoglobin 24.9 pg (28.0-33.3); Mean Corpuscular Volume 85.3 fL (83.0-100.0); Mean Platelet Volume 10.8 fL (9.4-12.4); Monocytes # 0.8 K/mcL (0.0-1.3); Monocytes % 9.4 %; Neutrophils # 6.6 K/mcL (1.6-8.9); Platelet Count 266 K/mcL (140-400); Red Blood Count 4.57 M/mcL (4.19-5.50); Red Cell Distribution Width 17.1 % (11.5-14.5); Segmented Neutrophils % 74.1 %; White Blood Count 8.9 K/mcL (4.3-11.1)
[2022-02-01] MEDS: Ipratropium/Albuterol Neb 3 ML IH SCH ×6 (04:12→23:14)
[2022-02-01] MEDS: Albumin 25% 25gram/100mL 25 GM/100 ML IV.SOLN IVPB SCH ×3 (04:15→17:48)
[2022-02-01] MEDS: *HR* Heparin 5,000 UNIT/ML VIAL SQ SCH ×3 (05:02→21:11)
[2022-02-01] MEDS: Budesonide/Formoterol 80/4.5 1 PUFF INH IH SCH ×2 (07:35→19:55)
[2022-02-01] MEDS: Multivit/Ca/Min/Fe/FA 1 TAB TABLET PO SCH (09:28)
[2022-02-01] MEDS: Aspirin 81 MG TAB.CHEW PO SCH (09:28)
[2022-02-01] MEDS: carvediloL 6.25 MG TABLET PO SCH ×2 (09:28→16:31)
[2022-02-01] MEDS: Furosemide 40 MG/4 ML VIAL IVP SCH (09:29)
[2022-02-01] MEDS: Nystatin POWDER 30 GM BOTTLE TP SCH ×3 (09:30→21:04)
[2022-02-01] MEDS: Sucralfate 1 GM TABLET PO SCH ×3 (09:32→16:31)
[2022-02-01] MEDS: Insulin LISPRO 300 UNITS/3 ML VIAL SUBQ SCH ×7 (09:40→20:55)
[2022-02-01] MEDS: Insulin DETEMIR 100 UNIT/ML X5UNITS SUBQ SCH (21:02)
[2022-02-01] MEDS: Melatonin 3 MG TABLET PO PRN (21:45)
[2022-02-02] MEDS: Albumin 25% 25gram/100mL 25 GM/100 ML IV.SOLN IVPB SCH ×3 (03:00→19:46)
[2022-02-02 03:22] LABS: Calcium 9.2 mg/dL (8.6-10.3); Magnesium 1.8 mg/dL (1.6-2.6); Phosphorous 3.7 mg/dL (2.7-4.5)
[2022-02-02] MEDS: Ipratropium/Albuterol Neb 3 ML IH SCH ×6 (03:27→23:15)
[2022-02-02] MEDS: *HR* Heparin 5,000 UNIT/ML VIAL SQ SCH ×3 (05:25→19:53)
[2022-02-02] MEDS: Budesonide/Formoterol 80/4.5 1 PUFF INH IH SCH ×2 (07:30→19:24)
[2022-02-02] MEDS: Insulin LISPRO 300 UNITS/3 ML VIAL SUBQ SCH ×7 (08:13→19:50)
[2022-02-02] MEDS: Nystatin POWDER 30 GM BOTTLE TP SCH ×3 (08:13→19:52)
[2022-02-02] MEDS: carvediloL 6.25 MG TABLET PO SCH ×2 (08:14→17:01)
[2022-02-02] MEDS: Multivit/Ca/Min/Fe/FA 1 TAB TABLET PO SCH (08:14)
[2022-02-02] MEDS: Aspirin 81 MG TAB.CHEW PO SCH (08:15)
[2022-02-02] MEDS: Sucralfate 1 GM TABLET PO SCH ×3 (08:15→17:01)
[2022-02-02] MEDS: Furosemide 40 MG/4 ML VIAL IVP SCH (14:57)
[2022-02-02] MEDS: Insulin DETEMIR 100 UNIT/ML X5UNITS SUBQ SCH (19:52)
[2022-02-03] MEDS: Albumin 25% 25gram/100mL 25 GM/100 ML IV.SOLN IVPB SCH ×3 (03:04→19:55)
[2022-02-03] MEDS: Ipratropium/Albuterol Neb 3 ML IH SCH ×6 (03:46→23:05)
[2022-02-03 04:34] LABS: Hematocrit 35.3 % (37.5-50.1); Hemoglobin 10.5 g/dL (12.9-16.9); Mean Corpuscular HGB Conc 29.7 g/dL (31.6-35.5); Mean Corpuscular Hemoglobin 24.9 pg (28.0-33.3); Mean Corpuscular Volume 83.8 fL (83.0-100.0); Mean Platelet Volume 10.9 fL (9.4-12.4); Platelet Count 205 K/mcL (140-400); Red Blood Count 4.21 M/mcL (4.19-5.50); Red Cell Distribution Width 17.2 % (11.5-14.5); White Blood Count 8.6 K/mcL (4.3-11.1)
[2022-02-03 04:49] LABS: Calcium 9.2 mg/dL (8.6-10.3)
[2022-02-03] MEDS: *HR* Heparin 5,000 UNIT/ML VIAL SQ SCH ×3 (05:39→22:40)
[2022-02-03] MEDS: Sucralfate 1 GM TABLET PO SCH ×3 (07:28→16:52)
[2022-02-03] MEDS: Aspirin 81 MG TAB.CHEW PO SCH (07:28)
[2022-02-03] MEDS: Multivit/Ca/Min/Fe/FA 1 TAB TABLET PO SCH (07:28)
[2022-02-03] MEDS: carvediloL 6.25 MG TABLET PO SCH ×2 (07:28→16:52)
[2022-02-03] MEDS: Insulin LISPRO 300 UNITS/3 ML VIAL SUBQ SCH ×7 (07:29→22:39)
[2022-02-03] MEDS: Furosemide 40 MG/4 ML VIAL IVP SCH (07:29)
[2022-02-03] MEDS: Nystatin POWDER 30 GM BOTTLE TP SCH ×3 (07:30→22:38)
[2022-02-03] MEDS: Budesonide/Formoterol 80/4.5 1 PUFF INH IH SCH ×2 (07:37→20:06)
[2022-02-03 13:26] LABS: INR 1.3; Prothrombin Time 14.1 Seconds (9.4-12.1)
[2022-02-03 17:18] LABS: RBC,Pleural Fluid < 2000 RBC/mcL
[2022-02-03 17:24] LABS: Lactate Dehydrogenase 92 Units/L (140-271); Total Protein 6.7 g/dL (6.4-8.9)
[2022-02-03 18:01] LABS: Total Protein,Pleural Fluid 2.6 g/dL
[2022-02-03 20:21] LABS: Appearance of Pleural Fl Clear (Clear)
[2022-02-03 20:27] LABS: Basophils,Pleural Fluid 0 %
[2022-02-03] MEDS: Insulin DETEMIR 100 UNIT/ML X5UNITS SUBQ SCH (22:37)
[2022-02-03] MEDS ORDERED: traZODone 50 MG TABLET PO ONE (22:46)
[2022-02-04 02:48] LABS: Hematocrit 32.5 % (37.5-50.1); Hemoglobin 9.8 g/dL (12.9-16.9); Mean Corpuscular HGB Conc 30.2 g/dL (31.6-35.5); Mean Corpuscular Hemoglobin 25.5 pg (28.0-33.3); Mean Corpuscular Volume 84.6 fL (83.0-100.0); Mean Platelet Volume 11.8 fL (9.4-12.4); Platelet Count 220 K/mcL (140-400); Red Blood Count 3.84 M/mcL (4.19-5.50); Red Cell Distribution Width 17.3 % (11.5-14.5); White Blood Count 12.1 K/mcL (4.3-11.1)
[2022-02-04 02:56] LABS: Calcium 9.3 mg/dL (8.6-10.3); Potassium 3.5 mEq/L (3.5-5.1)
[2022-02-04] MEDS: Albumin 25% 25gram/100mL 25 GM/100 ML IV.SOLN IVPB SCH ×2 (03:39→12:09)
[2022-02-04] MEDS: Ipratropium/Albuterol Neb 3 ML IH SCH ×6 (04:02→23:39)
[2022-02-04] MEDS: *HR* Heparin 5,000 UNIT/ML VIAL SQ SCH ×3 (06:12→20:30)
[2022-02-04] MEDS: Sucralfate 1 GM TABLET PO SCH ×3 (06:13→17:11)
[2022-02-04] MEDS: Insulin LISPRO 300 UNITS/3 ML VIAL SUBQ SCH ×7 (07:09→18:41)
[2022-02-04] MEDS: Budesonide/Formoterol 80/4.5 1 PUFF INH IH SCH ×2 (07:26→19:47)
[2022-02-04] MEDS: Multivit/Ca/Min/Fe/FA 1 TAB TABLET PO SCH (08:41)
[2022-02-04] MEDS: Aspirin 81 MG TAB.CHEW PO SCH (08:41)
[2022-02-04] MEDS: carvediloL 6.25 MG TABLET PO SCH ×2 (08:41→17:11)
[2022-02-04] MEDS: Nystatin POWDER 30 GM BOTTLE TP SCH ×3 (08:44→20:30)
[2022-02-04] MEDS: Furosemide 40 MG/4 ML VIAL IVP SCH (08:46)
[2022-02-04] MEDS: Furosemide 40 MG TABLET PO SCH (17:11)
[2022-02-04 18:29] LABS: Bilirubin,Urine Negative (Negative); Blood,Urine Small (Negative); Clarity,Urine Clear (Clear); Color,Urine Yellow (Yellow); Glucose,Urine (UA) Normal (Normal); Hyaline Casts,Urine Moderate per lpf (None Seen); Ketones,Urine Negative (Negative); Leukocyte Esterase,Urine Negative (Negative); Nitrite,Urine Negative (Negative); Protein,Urine >=300 mg/dL (Neg-Trace); Specific Gravity,Urine 1.015 (1.010-1.025); Sperm,Urine Present per hpf (None Seen); Squamous Epithelial Cell,Urine Few per hpf (None-Few); Urobilinogen,Urine Normal (Normal); WBC,Urine 0-3 per hpf (0-3)
[2022-02-04] MEDS: Insulin DETEMIR 100 UNIT/ML X5UNITS SUBQ SCH (18:41)
[2022-02-05 03:09] LABS: Hematocrit 32.7 % (37.5-50.1); Mean Corpuscular HGB Conc 30.6 g/dL (31.6-35.5); Mean Corpuscular Hemoglobin 25.8 pg (28.0-33.3); Mean Corpuscular Volume 84.3 fL (83.0-100.0); Platelet Count 202 K/mcL (140-400); Red Blood Count 3.88 M/mcL (4.19-5.50); Red Cell Distribution Width 17.3 % (11.5-14.5); White Blood Count 12.2 K/mcL (4.3-11.1)
[2022-02-05 03:25] LABS: Albumin 4.2 g/dL (3.5-5.7); Albumin/Globulin Ratio 2.1 (1.1-2.2); Bilirubin,Direct 0.4 mg/dL (0.0-0.2); Bilirubin,Indirect 0.8 mg/dL (0.0-1.0); Bilirubin,Total 1.2 mg/dL (0.3-1.0); Calcium 9.3 mg/dL (8.6-10.3); Magnesium 1.9 mg/dL (1.6-2.6); Potassium 3.6 mEq/L (3.5-5.1); Total Protein 6.2 g/dL (6.4-8.9)
[2022-02-05] MEDS: Ipratropium/Albuterol Neb 3 ML IH SCH ×6 (04:00→23:53)
[2022-02-05] MEDS: *HR* Heparin 5,000 UNIT/ML VIAL SQ SCH ×3 (05:29→21:14)
[2022-02-05] MEDS: Budesonide/Formoterol 80/4.5 1 PUFF INH IH SCH ×2 (07:49→19:51)
[2022-02-05] MEDS: Piperacillin/Tazobactam 3.375 GM in 0.9 % Sodium Chloride Mini Bag 100 ML IVPB SCH ×3 (08:17→23:41)
[2022-02-05] MEDS: Insulin LISPRO 300 UNITS/3 ML VIAL SUBQ SCH ×5 (08:18→21:15)
[2022-02-05] MEDS: carvediloL 6.25 MG TABLET PO SCH ×2 (08:19→17:27)
[2022-02-05] MEDS: Sucralfate 1 GM TABLET PO SCH ×3 (08:19→17:27)
[2022-02-05] MEDS: Aspirin 81 MG TAB.CHEW PO SCH (08:19)
[2022-02-05] MEDS: Multivit/Ca/Min/Fe/FA 1 TAB TABLET PO SCH (08:19)
[2022-02-05] MEDS: Furosemide 40 MG TABLET PO SCH ×2 (08:19→17:27)
[2022-02-05] MEDS: Nystatin POWDER 30 GM BOTTLE TP SCH ×3 (08:19→21:16)
[2022-02-05] MEDS ORDERED: Insulin DETEMIR 100 UNIT/ML X5UNITS SUBQ SCH (21:00)
[2022-02-06] MEDS: Ipratropium/Albuterol Neb 3 ML IH SCH ×6 (03:06→23:21)
[2022-02-06] MEDS: *HR* Heparin 5,000 UNIT/ML VIAL SQ SCH ×2 (05:17→13:43)
[2022-02-06 06:17] LABS: Hematocrit 34.7 % (37.5-50.1); Hemoglobin 10.4 g/dL (12.9-16.9); Mean Corpuscular Hemoglobin 25.1 pg (28.0-33.3); Mean Corpuscular Volume 83.6 fL (83.0-100.0); Mean Platelet Volume 10.8 fL (9.4-12.4); Platelet Count 224 K/mcL (140-400); Red Blood Count 4.15 M/mcL (4.19-5.50); Red Cell Distribution Width 17.4 % (11.5-14.5); White Blood Count 9.7 K/mcL (4.3-11.1)
[2022-02-06 06:36] LABS: Calcium 9.4 mg/dL (8.6-10.3); Potassium 3.9 mEq/L (3.5-5.1)
[2022-02-06] MEDS: Budesonide/Formoterol 80/4.5 1 PUFF INH IH SCH ×2 (07:37→19:52)
[2022-02-06] MEDS: Furosemide 40 MG TABLET PO SCH (08:10)
[2022-02-06] MEDS: Sucralfate 1 GM TABLET PO SCH ×3 (08:10→17:13)
[2022-02-06] MEDS: carvediloL 6.25 MG TABLET PO SCH ×2 (08:10→17:13)
[2022-02-06] MEDS: Piperacillin/Tazobactam 3.375 GM in 0.9 % Sodium Chloride Mini Bag 100 ML IVPB SCH ×2 (08:10→15:28)
[2022-02-06] MEDS: Aspirin 81 MG TAB.CHEW PO SCH (08:10)
[2022-02-06] MEDS: Multivit/Ca/Min/Fe/FA 1 TAB TABLET PO SCH (08:11)
[2022-02-06] MEDS: Nystatin POWDER 30 GM BOTTLE TP SCH ×3 (08:11→20:37)
[2022-02-06] MEDS: Insulin LISPRO 300 UNITS/3 ML VIAL SUBQ SCH ×4 (08:11→20:36)
[2022-02-06] MEDS ORDERED: Bisacodyl 10 MG RECTAL SUPPOSITORY RC ONE (15:05)
[2022-02-06] MEDS: Furosemide 40 MG/4 ML VIAL IVP SCH (17:13)
[2022-02-06] MEDS: Melatonin 3 MG TABLET PO PRN (20:23)
[2022-02-06] MEDS: Doxycycline 100 MG CAPSULE PO SCH (20:23)
[2022-02-06] MEDS: Insulin DETEMIR 100 UNIT/ML X5UNITS SUBQ SCH (20:36)
[2022-02-07] MEDS: Piperacillin/Tazobactam 3.375 GM in 0.9 % Sodium Chloride Mini Bag 100 ML IVPB SCH ×2 (00:50→10:35)
[2022-02-07] MEDS: *HR* Heparin 5,000 UNIT/ML VIAL SQ SCH ×4 (00:50→20:52)
[2022-02-07 01:33] LABS: Hematocrit 35.4 % (37.5-50.1); Hemoglobin 10.4 g/dL (12.9-16.9); Mean Corpuscular HGB Conc 29.4 g/dL (31.6-35.5); Mean Corpuscular Hemoglobin 24.9 pg (28.0-33.3); Mean Corpuscular Volume 84.9 fL (83.0-100.0); Mean Platelet Volume 11.1 fL (9.4-12.4); Platelet Count 234 K/mcL (140-400); Red Blood Count 4.17 M/mcL (4.19-5.50); Red Cell Distribution Width 17.3 % (11.5-14.5); White Blood Count 10.1 K/mcL (4.3-11.1)
[2022-02-07 02:52] LABS: Calcium 9.2 mg/dL (8.6-10.3); Potassium 3.8 mEq/L (3.5-5.1)
[2022-02-07] MEDS: Ipratropium/Albuterol Neb 3 ML IH SCH ×6 (03:42→23:29)
[2022-02-07] MEDS: Budesonide/Formoterol 80/4.5 1 PUFF INH IH SCH ×2 (07:36→20:05)
[2022-02-07] MEDS: Nystatin POWDER 30 GM BOTTLE TP SCH ×3 (09:25→20:51)
[2022-02-07] MEDS: Insulin LISPRO 300 UNITS/3 ML VIAL SUBQ SCH ×4 (10:29→20:50)
[2022-02-07] MEDS: Doxycycline 100 MG CAPSULE PO SCH ×2 (10:30→20:50)
[2022-02-07] MEDS: Aspirin 81 MG TAB.CHEW PO SCH (10:30)
[2022-02-07] MEDS: Multivit/Ca/Min/Fe/FA 1 TAB TABLET PO SCH (10:30)
[2022-02-07] MEDS: Sucralfate 1 GM TABLET PO SCH ×3 (10:30→17:26)
[2022-02-07] MEDS: carvediloL 6.25 MG TABLET PO SCH ×2 (10:34→17:23)
[2022-02-07] MEDS: Furosemide 40 MG/4 ML VIAL IVP SCH ×2 (10:45→17:34)
[2022-02-07] MEDS: levoFLOXacin 750 MG TABLET PO SCH (15:21)
[2022-02-07] MEDS: Albumin 25% 25gram/100mL 25 GM/100 ML IV.SOLN IVPB SCH ×2 (17:18→23:35)
[2022-02-07] MEDS: Insulin DETEMIR 100 UNIT/ML X5UNITS SUBQ SCH (20:50)
[2022-02-08] MEDS: Ipratropium/Albuterol Neb 3 ML IH SCH ×5 (04:08→20:50)
[2022-02-08] MEDS: *HR* Heparin 5,000 UNIT/ML VIAL SQ SCH ×3 (05:11→19:41)
[2022-02-08] MEDS: Budesonide/Formoterol 80/4.5 1 PUFF INH IH SCH ×2 (08:06→20:50)
[2022-02-08] MEDS: carvediloL 6.25 MG TABLET PO SCH ×2 (10:25→18:14)
[2022-02-08] MEDS: Aspirin 81 MG TAB.CHEW PO SCH (10:34)
[2022-02-08] MEDS: Multivit/Ca/Min/Fe/FA 1 TAB TABLET PO SCH (10:34)
[2022-02-08] MEDS: Doxycycline 100 MG CAPSULE PO SCH ×2 (10:34→19:41)
[2022-02-08] MEDS: Sucralfate 1 GM TABLET PO SCH ×3 (10:34→18:14)
[2022-02-08] MEDS: Insulin LISPRO 300 UNITS/3 ML VIAL SUBQ SCH ×4 (10:35→20:45)
[2022-02-08 10:36] LABS: Calcium 9.2 mg/dL (8.6-10.3); Potassium 3.8 mEq/L (3.5-5.1)
[2022-02-08] MEDS: Albumin 25% 25gram/100mL 25 GM/100 ML IV.SOLN IVPB SCH ×2 (11:20→19:41)
[2022-02-08] MEDS: Furosemide 40 MG/4 ML VIAL IVP SCH ×2 (11:21→18:13)
[2022-02-08] MEDS: Nystatin POWDER 30 GM BOTTLE TP SCH ×3 (11:36→19:41)
[2022-02-08] MEDS: Insulin DETEMIR 100 UNIT/ML X5UNITS SUBQ SCH (20:45)
[2022-02-09] MEDS: Ipratropium/Albuterol Neb 3 ML IH SCH ×7 (00:04→20:38)
[2022-02-09] MEDS: Albumin 25% 25gram/100mL 25 GM/100 ML IV.SOLN IVPB SCH ×3 (02:53→20:47)
[2022-02-09] MEDS: *HR* Heparin 5,000 UNIT/ML VIAL SQ SCH ×3 (04:57→20:47)
[2022-02-09 06:04] LABS: Hematocrit 32.9 % (37.5-50.1); Hemoglobin 9.7 g/dL (12.9-16.9); Mean Corpuscular HGB Conc 29.5 g/dL (31.6-35.5); Mean Corpuscular Hemoglobin 24.7 pg (28.0-33.3); Mean Corpuscular Volume 83.9 fL (83.0-100.0); Platelet Count 243 K/mcL (140-400); Red Blood Count 3.92 M/mcL (4.19-5.50); Red Cell Distribution Width 17.2 % (11.5-14.5); White Blood Count 6.8 K/mcL (4.3-11.1)
[2022-02-09 06:20] LABS: Calcium 9.7 mg/dL (8.6-10.3)
[2022-02-09] MEDS: Budesonide/Formoterol 80/4.5 1 PUFF INH IH SCH ×2 (07:17→20:38)
[2022-02-09] MEDS: carvediloL 6.25 MG TABLET PO SCH ×2 (09:10→17:33)
[2022-02-09] MEDS: Furosemide 40 MG/4 ML VIAL IVP SCH (09:10)
[2022-02-09] MEDS: Sucralfate 1 GM TABLET PO SCH ×3 (09:10→17:33)
[2022-02-09] MEDS: Doxycycline 100 MG CAPSULE PO SCH ×2 (09:10→20:47)
[2022-02-09] MEDS: Nystatin POWDER 30 GM BOTTLE TP SCH ×3 (09:10→20:49)
[2022-02-09] MEDS: Multivit/Ca/Min/Fe/FA 1 TAB TABLET PO SCH (09:10)
[2022-02-09] MEDS: Aspirin 81 MG TAB.CHEW PO SCH (09:10)
[2022-02-09] MEDS: Insulin LISPRO 300 UNITS/3 ML VIAL SUBQ SCH ×4 (09:11→20:48)
[2022-02-09] MEDS: Furosemide 240 MG in 0.9 % Sodium Chloride 96 ML IVC SCH (12:26)
[2022-02-09] MEDS: levoFLOXacin 750 MG TABLET PO SCH (14:28)
[2022-02-09] MEDS: Insulin DETEMIR 100 UNIT/ML X5UNITS SUBQ SCH (20:49)
[2022-02-10] MEDS: Ipratropium/Albuterol Neb 3 ML IH SCH ×7 (00:21→23:50)
[2022-02-10 02:17] LABS: Basophils % 0.2 %; Eosinophils # 0.1 K/mcL (0.0-0.6); Eosinophils % 0.7 %; Hematocrit 33.9 % (37.5-50.1); Hemoglobin 10.1 g/dL (12.9-16.9); Immature Granulocytes % 0.4 % (0-4); Lymphocytes # 0.8 K/mcL (0.6-4.6); Lymphocytes % 9.9 %; Mean Corpuscular HGB Conc 29.8 g/dL (31.6-35.5); Mean Corpuscular Hemoglobin 25.2 pg (28.0-33.3); Mean Corpuscular Volume 84.5 fL (83.0-100.0); Mean Platelet Volume 10.3 fL (9.4-12.4); Monocytes # 0.6 K/mcL (0.0-1.3); Monocytes % 7.7 %; Neutrophils # 6.7 K/mcL (1.6-8.9); Platelet Count 239 K/mcL (140-400); Red Blood Count 4.01 M/mcL (4.19-5.50); Red Cell Distribution Width 17.3 % (11.5-14.5); Segmented Neutrophils % 81.1 %; White Blood Count 8.3 K/mcL (4.3-11.1)
[2022-02-10 02:33] LABS: Calcium 9.6 mg/dL (8.6-10.3); Potassium 3.9 mEq/L (3.5-5.1)
[2022-02-10] MEDS: Albumin 25% 25gram/100mL 25 GM/100 ML IV.SOLN IVPB SCH ×3 (02:41→20:22)
[2022-02-10] MEDS: *HR* Heparin 5,000 UNIT/ML VIAL SQ SCH ×3 (05:09→20:22)
[2022-02-10] MEDS: Budesonide/Formoterol 80/4.5 1 PUFF INH IH SCH ×2 (08:07→20:01)
[2022-02-10] MEDS: Multivit/Ca/Min/Fe/FA 1 TAB TABLET PO SCH (09:37)
[2022-02-10] MEDS: Doxycycline 100 MG CAPSULE PO SCH ×2 (09:37→20:22)
[2022-02-10] MEDS: Aspirin 81 MG TAB.CHEW PO SCH (09:37)
[2022-02-10] MEDS: Insulin LISPRO 300 UNITS/3 ML VIAL SUBQ SCH ×4 (09:37→21:35)
[2022-02-10] MEDS: Sucralfate 1 GM TABLET PO SCH ×3 (09:37→16:00)
[2022-02-10] MEDS: carvediloL 6.25 MG TABLET PO SCH ×2 (09:46→16:31)
[2022-02-10] MEDS: Nystatin POWDER 30 GM BOTTLE TP SCH ×3 (09:47→21:36)
[2022-02-10] MEDS: Furosemide 240 MG in 0.9 % Sodium Chloride 96 ML IVC SCH (09:51)
[2022-02-10 14:49] LABS: Calcium 9.7 mg/dL (8.6-10.3); Potassium 4.3 mEq/L (3.5-5.1)
[2022-02-10] MEDS ORDERED: polyethylene glycoL 3350 17 GM POWD.PACK PO ONE (20:47)
[2022-02-10] MEDS: Insulin DETEMIR 100 UNIT/ML X5UNITS SUBQ SCH (21:53)
[2022-02-11 00:13] LABS: ABG Base Excess 3 mEq/L (-2 to 3); ABG HCO3 27 mEq/L (21-27); ABG Oxygen Saturation 92 % (95-98); ABG PCO2 42 mmHg (35-45); ABG PH 7.43 pH Units (7.32-7.45); ABG PO2 63 mmHg (85-104); ABG TCO2 29 mEq/L (20-26)
[2022-02-11 03:19] LABS: Basophils % 0.1 %; Eosinophils # 0.1 K/mcL (0.0-0.6); Eosinophils % 0.5 %; Hematocrit 33.6 % (37.5-50.1); Immature Granulocytes % 0.4 % (0-4); Lymphocytes # 0.8 K/mcL (0.6-4.6); Mean Corpuscular HGB Conc 29.8 g/dL (31.6-35.5); Mean Corpuscular Hemoglobin 25.2 pg (28.0-33.3); Mean Corpuscular Volume 84.6 fL (83.0-100.0); Mean Platelet Volume 10.6 fL (9.4-12.4); Monocytes # 0.7 K/mcL (0.0-1.3); Monocytes % 6.9 %; Neutrophils # 8.7 K/mcL (1.6-8.9); Platelet Count 226 K/mcL (140-400); Red Blood Count 3.97 M/mcL (4.19-5.50); Red Cell Distribution Width 17.5 % (11.5-14.5); Segmented Neutrophils % 84.1 %; White Blood Count 10.4 K/mcL (4.3-11.1)
[2022-02-11] MEDS: Albumin 25% 25gram/100mL 25 GM/100 ML IV.SOLN IVPB SCH ×4 (03:31→19:43)
[2022-02-11 03:40] LABS: Potassium 3.4 mEq/L (3.5-5.1)
[2022-02-11] MEDS: Ipratropium/Albuterol Neb 3 ML IH SCH ×6 (04:03→23:41)
[2022-02-11] MEDS: *HR* Heparin 5,000 UNIT/ML VIAL SQ SCH ×3 (06:28→21:44)
[2022-02-11] MEDS: Sucralfate 1 GM TABLET PO SCH ×3 (06:28→15:15)
[2022-02-11] MEDS: Budesonide/Formoterol 80/4.5 1 PUFF INH IH SCH ×2 (07:42→20:16)
[2022-02-11] MEDS: Insulin LISPRO 300 UNITS/3 ML VIAL SUBQ SCH ×4 (07:46→21:45)
[2022-02-11] MEDS: carvediloL 6.25 MG TABLET PO SCH ×2 (08:25→15:15)
[2022-02-11] MEDS: Multivit/Ca/Min/Fe/FA 1 TAB TABLET PO SCH (08:25)
[2022-02-11] MEDS: Doxycycline 100 MG CAPSULE PO SCH ×2 (08:25→19:43)
[2022-02-11] MEDS: Aspirin 81 MG TAB.CHEW PO SCH (08:25)
[2022-02-11] MEDS: Furosemide 240 MG in 0.9 % Sodium Chloride 96 ML IVC SCH (08:28)
[2022-02-11] MEDS ORDERED: Milk and Molasses Enema 200 ML RC ONE (08:41)
[2022-02-11] MEDS: Nystatin POWDER 30 GM BOTTLE TP SCH ×3 (10:21→21:44)
[2022-02-11] MEDS: levoFLOXacin 750 MG TABLET PO SCH (15:15)
[2022-02-11] MEDS: Insulin DETEMIR 100 UNIT/ML X5UNITS SUBQ SCH (21:44)
[2022-02-12] MEDS: Albumin 25% 25gram/100mL 25 GM/100 ML IV.SOLN IVPB SCH ×3 (03:08→21:07)
[2022-02-12] MEDS: Ipratropium/Albuterol Neb 3 ML IH SCH ×6 (03:39→23:41)
[2022-02-12] MEDS: *HR* Heparin 5,000 UNIT/ML VIAL SQ SCH ×3 (05:56→21:10)
[2022-02-12 06:50] LABS: Basophils % 0.2 %; Eosinophils # 0.1 K/mcL (0.0-0.6); Eosinophils % 0.6 %; Hematocrit 33.1 % (37.5-50.1); Hemoglobin 9.8 g/dL (12.9-16.9); Immature Granulocytes % 0.4 % (0-4); Lymphocytes # 0.6 K/mcL (0.6-4.6); Lymphocytes % 5.1 %; Mean Corpuscular HGB Conc 29.6 g/dL (31.6-35.5); Mean Corpuscular Hemoglobin 24.9 pg (28.0-33.3); Mean Platelet Volume 9.8 fL (9.4-12.4); Monocytes # 0.7 K/mcL (0.0-1.3); Monocytes % 6.8 %; Neutrophils # 9.5 K/mcL (1.6-8.9); Platelet Count 200 K/mcL (140-400); Red Blood Count 3.94 M/mcL (4.19-5.50); Red Cell Distribution Width 17.7 % (11.5-14.5); Segmented Neutrophils % 86.9 %; White Blood Count 10.9 K/mcL (4.3-11.1)
[2022-02-12 07:09] LABS: Calcium 10.1 mg/dL (8.6-10.3); Potassium 3.7 mEq/L (3.5-5.1)
[2022-02-12] MEDS: Budesonide/Formoterol 80/4.5 1 PUFF INH IH SCH ×2 (07:24→20:18)
[2022-02-12] MEDS: Furosemide 240 MG in 0.9 % Sodium Chloride 96 ML IVC SCH (07:44)
[2022-02-12] MEDS: Doxycycline 100 MG CAPSULE PO SCH ×2 (07:45→21:09)
[2022-02-12] MEDS: Sucralfate 1 GM TABLET PO SCH ×3 (07:45→16:10)
[2022-02-12] MEDS: Multivit/Ca/Min/Fe/FA 1 TAB TABLET PO SCH (07:45)
[2022-02-12] MEDS: Aspirin 81 MG TAB.CHEW PO SCH (07:45)
[2022-02-12] MEDS: carvediloL 6.25 MG TABLET PO SCH ×2 (07:45→16:10)
[2022-02-12] MEDS: Insulin LISPRO 300 UNITS/3 ML VIAL SUBQ SCH ×4 (07:46→21:09)
[2022-02-12] MEDS: Nystatin POWDER 30 GM BOTTLE TP SCH ×3 (07:50→21:09)
[2022-02-12] MEDS: polyethylene glycoL 3350 17 GM POWD.PACK PO SCH (21:08)
[2022-02-12] MEDS: Insulin DETEMIR 100 UNIT/ML X5UNITS SUBQ SCH (21:08)
[2022-02-13] MEDS: Ipratropium/Albuterol Neb 3 ML IH SCH ×6 (03:46→23:49)
[2022-02-13] MEDS: Albumin 25% 25gram/100mL 25 GM/100 ML IV.SOLN IVPB SCH ×2 (04:51→11:49)
[2022-02-13] MEDS: *HR* Heparin 5,000 UNIT/ML VIAL SQ SCH ×3 (04:52→21:13)
[2022-02-13 05:18] LABS: Basophils % 0.1 %; Eosinophils # 0.1 K/mcL (0.0-0.6); Eosinophils % 1.1 %; Hematocrit 32.4 % (37.5-50.1); Hemoglobin 9.5 g/dL (12.9-16.9); Immature Granulocytes % 0.2 % (0-4); Lymphocytes # 0.9 K/mcL (0.6-4.6); Lymphocytes % 9.4 %; Mean Corpuscular HGB Conc 29.3 g/dL (31.6-35.5); Mean Corpuscular Hemoglobin 24.8 pg (28.0-33.3); Mean Corpuscular Volume 84.6 fL (83.0-100.0); Mean Platelet Volume 9.5 fL (9.4-12.4); Monocytes # 0.7 K/mcL (0.0-1.3); Monocytes % 6.9 %; Neutrophils # 7.7 K/mcL (1.6-8.9); Platelet Count 187 K/mcL (140-400); Red Blood Count 3.83 M/mcL (4.19-5.50); Red Cell Distribution Width 17.7 % (11.5-14.5); Segmented Neutrophils % 82.3 %; White Blood Count 9.4 K/mcL (4.3-11.1)
[2022-02-13 05:37] LABS: Calcium 10.1 mg/dL (8.6-10.3); Potassium 3.3 mEq/L (3.5-5.1)
[2022-02-13] MEDS: Budesonide/Formoterol 80/4.5 1 PUFF INH IH SCH ×2 (07:21→19:40)
[2022-02-13] MEDS: Insulin LISPRO 300 UNITS/3 ML VIAL SUBQ SCH ×4 (07:37→21:14)
[2022-02-13] MEDS: polyethylene glycoL 3350 17 GM POWD.PACK PO SCH ×2 (10:38→21:15)
[2022-02-13] MEDS: Sucralfate 1 GM TABLET PO SCH ×3 (10:39→16:54)
[2022-02-13] MEDS: Aspirin 81 MG TAB.CHEW PO SCH (10:39)
[2022-02-13] MEDS: carvediloL 6.25 MG TABLET PO SCH ×2 (10:39→16:54)
[2022-02-13] MEDS: Doxycycline 100 MG CAPSULE PO SCH ×2 (10:39→21:14)
[2022-02-13] MEDS: Multivit/Ca/Min/Fe/FA 1 TAB TABLET PO SCH (10:39)
[2022-02-13] MEDS: Nystatin POWDER 30 GM BOTTLE TP SCH ×3 (10:39→21:15)
[2022-02-13] MEDS: Furosemide 240 MG in 0.9 % Sodium Chloride 96 ML IVC SCH (11:48)
[2022-02-13] MEDS: levoFLOXacin 750 MG TABLET PO SCH (14:11)
[2022-02-13] MEDS: Furosemide 40 MG TABLET PO SCH (16:54)
[2022-02-13] MEDS: Insulin DETEMIR 100 UNIT/ML X5UNITS SUBQ SCH (21:13)
[2022-02-13] MEDS: Melatonin 3 MG TABLET PO PRN (21:14)
[2022-02-14] MEDS: Ipratropium/Albuterol Neb 3 ML IH SCH ×6 (03:00→23:32)
[2022-02-14 03:03] LABS: Basophils % 0.2 %; Eosinophils # 0.1 K/mcL (0.0-0.6); Eosinophils % 0.8 %; Hematocrit 33.9 % (37.5-50.1); Hemoglobin 9.9 g/dL (12.9-16.9); Immature Granulocytes % 0.3 % (0-4); Lymphocytes # 0.9 K/mcL (0.6-4.6); Mean Corpuscular HGB Conc 29.2 g/dL (31.6-35.5); Mean Corpuscular Volume 85.6 fL (83.0-100.0); Mean Platelet Volume 10.5 fL (9.4-12.4); Monocytes # 0.7 K/mcL (0.0-1.3); Monocytes % 7.4 %; Neutrophils # 7.9 K/mcL (1.6-8.9); Platelet Count 194 K/mcL (140-400); Red Blood Count 3.96 M/mcL (4.19-5.50); Red Cell Distribution Width 17.7 % (11.5-14.5); Segmented Neutrophils % 82.3 %; White Blood Count 9.6 K/mcL (4.3-11.1)
[2022-02-14 03:21] LABS: Calcium 10.2 mg/dL (8.6-10.3)
[2022-02-14] MEDS: *HR* Heparin 5,000 UNIT/ML VIAL SQ SCH ×3 (06:12→20:55)
[2022-02-14] MEDS: Budesonide/Formoterol 80/4.5 1 PUFF INH IH SCH ×2 (07:23→20:13)
[2022-02-14] MEDS: Multivit/Ca/Min/Fe/FA 1 TAB TABLET PO SCH (08:25)
[2022-02-14] MEDS: carvediloL 6.25 MG TABLET PO SCH ×2 (08:25→16:31)
[2022-02-14] MEDS: Sucralfate 1 GM TABLET PO SCH ×3 (08:25→16:31)
[2022-02-14] MEDS: Insulin LISPRO 300 UNITS/3 ML VIAL SUBQ SCH ×4 (08:25→20:54)
[2022-02-14] MEDS: Aspirin 81 MG TAB.CHEW PO SCH (08:25)
[2022-02-14] MEDS: Furosemide 40 MG TABLET PO SCH ×2 (08:25→16:31)
[2022-02-14] MEDS: Nystatin POWDER 30 GM BOTTLE TP SCH ×3 (08:26→20:55)
[2022-02-14] MEDS: polyethylene glycoL 3350 17 GM POWD.PACK PO SCH ×2 (12:07→20:54)
[2022-02-14] MEDS: Insulin DETEMIR 100 UNIT/ML X5UNITS SUBQ SCH (20:55)
[2022-02-14] MEDS: Melatonin 3 MG TABLET PO PRN (20:55)
[2022-02-15] MEDS: Ipratropium/Albuterol Neb 3 ML IH SCH ×6 (03:53→23:28)
[2022-02-15] MEDS: *HR* Heparin 5,000 UNIT/ML VIAL SQ SCH ×3 (06:18→21:02)
[2022-02-15 06:28] LABS: Basophils % 0.2 %; Eosinophils # 0.1 K/mcL (0.0-0.6); Eosinophils % 1.3 %; Hematocrit 32.7 % (37.5-50.1); Hemoglobin 9.5 g/dL (12.9-16.9); Immature Granulocytes % 0.3 % (0-4); Lymphocytes % 9.6 %; Mean Corpuscular HGB Conc 29.1 g/dL (31.6-35.5); Mean Corpuscular Hemoglobin 24.9 pg (28.0-33.3); Mean Corpuscular Volume 85.6 fL (83.0-100.0); Mean Platelet Volume 10.4 fL (9.4-12.4); Monocytes # 0.8 K/mcL (0.0-1.3); Monocytes % 7.2 %; Neutrophils # 8.5 K/mcL (1.6-8.9); Platelet Count 180 K/mcL (140-400); Red Blood Count 3.82 M/mcL (4.19-5.50); Red Cell Distribution Width 17.6 % (11.5-14.5); Segmented Neutrophils % 81.4 %; White Blood Count 10.5 K/mcL (4.3-11.1)
[2022-02-15 06:49] LABS: Calcium 9.9 mg/dL (8.6-10.3); Potassium 3.7 mEq/L (3.5-5.1)
[2022-02-15] MEDS: Budesonide/Formoterol 80/4.5 1 PUFF INH IH SCH ×2 (07:27→19:19)
[2022-02-15] MEDS: Nystatin POWDER 30 GM BOTTLE TP SCH ×3 (09:10→21:04)
[2022-02-15] MEDS: polyethylene glycoL 3350 17 GM POWD.PACK PO SCH ×2 (09:15→21:04)
[2022-02-15] MEDS: Multivit/Ca/Min/Fe/FA 1 TAB TABLET PO SCH (09:16)
[2022-02-15] MEDS: Furosemide 40 MG TABLET PO SCH ×2 (09:17→17:37)
[2022-02-15] MEDS: Sucralfate 1 GM TABLET PO SCH ×3 (09:17→17:37)
[2022-02-15] MEDS: Aspirin 81 MG TAB.CHEW PO SCH (09:17)
[2022-02-15] MEDS: Insulin LISPRO 300 UNITS/3 ML VIAL SUBQ SCH ×4 (09:18→21:03)
[2022-02-15] MEDS: carvediloL 6.25 MG TABLET PO SCH ×2 (09:18→17:38)
[2022-02-15] MEDS: Insulin DETEMIR 100 UNIT/ML X5UNITS SUBQ SCH (21:03)
[2022-02-16 03:26] LABS: Basophils % 0.3 %; Eosinophils # 0.1 K/mcL (0.0-0.6); Eosinophils % 1.3 %; Hematocrit 32.8 % (37.5-50.1); Hemoglobin 9.8 g/dL (12.9-16.9); Immature Granulocytes % 0.4 % (0-4); Mean Corpuscular HGB Conc 29.9 g/dL (31.6-35.5); Mean Corpuscular Hemoglobin 25.3 pg (28.0-33.3); Mean Corpuscular Volume 84.8 fL (83.0-100.0); Mean Platelet Volume 10.9 fL (9.4-12.4); Monocytes # 0.8 K/mcL (0.0-1.3); Monocytes % 8.1 %; Neutrophils # 7.3 K/mcL (1.6-8.9); Platelet Count 195 K/mcL (140-400); Red Blood Count 3.87 M/mcL (4.19-5.50); Red Cell Distribution Width 17.5 % (11.5-14.5); Segmented Neutrophils % 78.9 %; White Blood Count 9.2 K/mcL (4.3-11.1)
[2022-02-16] MEDS: Ipratropium/Albuterol Neb 3 ML IH SCH ×4 (03:29→15:45)
[2022-02-16 03:49] LABS: Potassium 3.9 mEq/L (3.5-5.1)
[2022-02-16] MEDS: *HR* Heparin 5,000 UNIT/ML VIAL SQ SCH ×2 (06:32→12:37)
[2022-02-16] MEDS: Sucralfate 1 GM TABLET PO SCH ×2 (06:32→12:37)
[2022-02-16] MEDS: Budesonide/Formoterol 80/4.5 1 PUFF INH IH SCH (07:15)
[2022-02-16] MEDS: Insulin LISPRO 300 UNITS/3 ML VIAL SUBQ SCH ×2 (07:23→12:37)
[2022-02-16] MEDS: Multivit/Ca/Min/Fe/FA 1 TAB TABLET PO SCH (07:29)
[2022-02-16] MEDS: Furosemide 40 MG TABLET PO SCH (07:29)
[2022-02-16] MEDS: carvediloL 6.25 MG TABLET PO SCH (07:29)
[2022-02-16] MEDS: polyethylene glycoL 3350 17 GM POWD.PACK PO SCH (07:29)
[2022-02-16] MEDS: Nystatin POWDER 30 GM BOTTLE TP SCH ×2 (07:30→14:17)
[2022-02-16] MEDS: Aspirin 81 MG TAB.CHEW PO SCH (07:30)
[2022-02-16 10:12] LABS: Influenza A PCR Negative (Negative); Influenza B PCR Negative (Negative); Resp. Syncytial Virus PCR Negative (Negative)
[2022-02-16 10:13] LABS: SARS-CoV-2 by PCR (In House) Negative (Negative)
[2022-02-16 10:51] VITALS: TEMP 98
[2022-02-16 14:34] VITALS: BP 149/74; PULSE 77; O2SAT 96
== END 2022-02-16 16:25 | DRG 280 ==
LOC: EMEROOARM 10:31 → 2ANU 10:31 → SUATTDRO 16:25 → 2ANU 17:24 → SUATTDRO 01-30 13:34
PROVIDERS: ADMIT Internal Medicine; ATTEND Internal Medicine